=== PATIENT | female | born 1970 | race Caucasian/White ===

== ENCOUNTER 2019-11-28 08:18 | Outpatient (CLI) | payer OTHER, SELFPAY ==
--- NOTE | ~2019-11-28 | XR_ITS ---
XR knee LT 3V, XR knee RT 3V 11/28/2019 08:39 Indication: Bilateral knee pain Procedure: 3 views each knee Comparison: No prior studies for comparison. Findings: No fracture, subluxation or dislocation. There is a right knee effusion. There are mild deg enerative changes medial compartment of the left knee. No foreign bodies. Impression: 1: Mild degenerative changes medial compartment left knee. 2: Small right knee effusion. Reviewed, dictated and finalized at location A. Impression: 1: Mild degenerative changes medial compartment left knee. 2: Small right knee effusion. Impression: 1: Mild degenerative changes medial compartment left knee. 2: Small right knee effusion.
== END 2019-11-28 08:19 | disposition home or self-care (01) ==
PROVIDERS: PCP Physician Assistant
DX: M25.561 Pain in right knee (principal); M25.461 Effusion, right knee
CPT/HCPCS: 73562

== ENCOUNTER 2019-12-20 12:55 | Outpatient (CLI) | payer OTHER, SELFPAY ==
--- NOTE | ~2019-12-20 | MR_ITS ---
EXAMINATION: MR knee RT wo con DATE: 12/20/2019 13:56 INDICATION: Acute right knee pain. TECHNIQUE: Magnetic resonance imaging (MRI) of the right knee was performed without intravenous contr ast. Sequences included axial PD-weighted FS FSE, coronal PD-weighted FSE and PD-weighted FS FSE, sag ittal PD-weighted FSE, and sagittal T2-weighted FS FSE. COMPARISON: Right knee radiographs 11/28/2019 FINDINGS: Medial compartment: Medial meniscus is normal. There is cartilage surface irregularity of tibial condyle. There is shallo w partial-thickness cartilage loss of femoral condyle involving the central articular surface. No sub chondral edema. There are tiny marginal osteophytes. Lateral compartment: There is an upper-surface horizontal tear of body of lateral meniscus. There is a subacute subchondra l insufficiency fracture of lateral femoral condyle with subchondral sclerosis and mild bone marrow e quin. There is deep partial thickness cartilage loss of tibial condyle involving the central and post erior articular surface. There is shallow partial-thickness cartilage loss of femoral condyle involvi ng the posterior articular surface. There are tiny marginal osteophytes. Patellofemoral compartment: There is deep partial thickness cartilage loss of patellar medial and lateral facets with mild subcho ndral edema-like marrow signal intensity. There is cartilage surface irregularity of trochlea. Margin al osteophytes are noted. Ligaments and tendons: The anterior and posterior cruciate ligaments are normal. Medial collateral ligament and lateral danielle ateral ligament complex are normal. There is mild patellar tendinopathy. Fluid: There is a moderate-sized knee joint effusion. IMPRESSION: 1. Subacute subchondral insufficiency fracture of lateral femoral condyle. 2. Moderate chondrosis of lateral and patellofemoral compartments and mild chondrosis of medial comp artment. 3. Tear of lateral meniscus. 4. Moderate-sized knee joint effusion. Reviewed, dictated and finalized at location A. IMPRESSION: 1. Subacute subchondral insufficiency fracture of lateral femoral condyle. 2. Moderate chondrosis of lateral and patellofemoral compartments and mild cho ndrosis of medial compartment. 3. Tear of lateral meniscus. 4. Moderate-sized knee joint effusion.
== END 2019-12-20 12:56 | disposition home or self-care (01) ==
PROVIDERS: PCP Physician Assistant
DX: M25.461 Effusion, right knee (principal); S83.281A Other tear of lateral meniscus, current injury, right knee, initial encounter; X58.XXXA Exposure to other specified factors, initial encounter
CPT/HCPCS: 73721

== ENCOUNTER → 2020-07-31 16:02 | Outpatient (CLI) | payer OTHER, SELFPAY ==
--- NOTE | ~2020-07-31 | MM_ITS ---
EXAMINATION: MM screening [facility] BI w kamryn HISTORY: Screening mammogram TECHNIQUE: Craniocaudal and mediolateral oblique 3-D tomosynthesis images were obtained and synthetic 2-D images were generated. CAD analysis was submitted and interpreted. COMPARISON: No prior mammogram is available for comparison at this institution. BREAST PARENCHYMAL COMPOSITION: The breasts are almost entirely fatty. FINDINGS: There is no evidence of suspicious mass, calcification, or architectural distortion to sugg est malignancy in either breast. IMPRESSION: 1. No mammographic evidence of malignancy. 2. Recommend routine screening mammography in one year. BI-RADS Category 1: Negative Reviewed, dictated and finalized at location A. 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
== END ==
PROVIDERS: Visit Provider Physician Assistant
DX: Z12.31 Encounter for screening mammogram for malignant neoplasm of breast (principal)
CPT/HCPCS: 77063; 77067

== ENCOUNTER 2021-03-26 20:57 | Emergency (ER) | payer OTHER, SELFPAY ==
--- NOTE | ~2021-03-26 | XR_ITS ---
EXAMINATION: XR ankle RT min 3V DATE: 03/26/2021 21:12 INDICATION: Anterior right ankle pain. Fall. TECHNIQUE: 4 views of right ankle were obtained. COMPARISON: None. FINDINGS: Bone alignment is normal. No fracture. Joint spaces are well maintained. There are enthesop hytes at the posterior and plantar aspects of calcaneal tuberosity. There is ankle soft tissue swelli ng. IMPRESSION: 1. No fracture. Reviewed, dictated and finalized at location A. IMPRESSION: 1. No fracture.
[2021-03-26 21:25] VITALS: BP 121/75; PULSE 101; RESP 14; TEMP 37.3; O2SAT 95
[2021-03-26 22:38] VITALS: BP 121/75; PULSE 100; RESP 14; TEMP 37.3; O2SAT 100
--- NOTE | 2021-03-26 23:39 | ED.LOWEXIN ---
HPI - Extremity Injury (Lower) General Chief Complaint: Extremity Injury, Lower Stated Complaint: i think i broke my rt ankle Time Seen by Provider: 03/26/21 23:34 Source: patient and family Mode of arrival: ambulatory Limitations: no limitations History of Present Illness HPI Narrative: 51-year-old here with complaints of right ankle pain. Patient states that she missed couple steps and rolled her ankle. She states that she has excruciating pain. She denies any other injuries. complaint: ankle injury (Right) and fall Type of Injury: eversion Place: home Severity: moderate Relieving factors: nothing Exacerbating factors: movement Context: fall Associated symptoms: swelling Other symptoms: none Related Data Home Medications Medication Instructions Recorded Confirmed levothyroxine 290 mcg PO DAILY 01/31/21 01/31/21 pravastatin 10 mg PO DAILY 01/31/21 01/31/21 Allergies Allergy/AdvReac Type Severity Reaction Status Date / Time No Known Allergies Allergy Mild Verified 03/26/21 22:42 Review of Systems Review of Systems: All systems reviewed & are unremarkable except as noted in HPI and below Constitutional: Constitutional: Reports no additional constitutional complaints Eyes: Eyes: Reports no additional eye complaints ENT: Reports system reviewed and no additional complaints, except as documented Cardiovascular: Cardiovascular: Reports no additional cardiovascular complaints Respiratory: Respiratory: Reports no additional respiratory complaints Gastrointestinal: Gastrointestinal: Reports no additional gastrointestinal complaints Musculoskeletal: Musculoskeletal: Reports as per HPI Integumentary/Breasts: Skin/Breast: Reports system reviewed and no additional complaints, except as docu Neurologic: Reports system reviewed and no additional complaints, except as documented Psychiatric: Psychiatric: Reports no additional psychiatric complaints Endocrine: Endocrine: Reports no additional endocrine complaints [facility] Family History Family History Sibling Family history of bipolar disorder Mother Family history of osteoarthritis Family history of heart disease in male family member before age 55 Grandparent Family history of lung cancer Father Family history of heart disease in male family member before age 55 Other Diabetes mellitus Family history of coronary artery disease Hypertension Social History Social History Smoking status: Never smoker Alcohol intake: current Drinks per week: 3 Spiritual care concerns: No Exam Narrative: GENERAL: Well-appearing, well-nourished, and in no acute distress. HEAD: Normocephalic, atraumatic. EYES: PERRLA and EOMI.. NECK: Supple. CHEST: Clear to auscultation. No respiratory distress. HEART: Regular rate and rhythm. No murmur heard. Normal peripheral pulses. EXTREMITIES: Normal range of motion. No edema. Right ankle with mild soft tissue swelling, no deformity. SKIN: Warm, dry, no rash. NEURO: No focal deficits. Alert and oriented x3. PSYCH: Normal mood and affect. Course Course Emergency Course: Inform patient about her x-ray findings. Advised ice pack take pain medication as needed. Keep leg elevated. Vital Signs Vital signs: Vital Signs Temperature 37.3 C 03/26/21 21:25 Pulse Rate 101 H 03/26/21 21:25 Respiratory Rate 14 03/26/21 21:25 Blood Pressure 121/75 03/26/21 21:25 Pulse Oximetry 95 03/26/21 21:25 Temperature 37.3 C 03/26/21 22:38 Pulse Rate 100 03/26/21 22:38 Respiratory Rate 14 03/26/21 22:38 Blood Pressure 121/75 03/26/21 22:38 Pulse Oximetry 100 03/26/21 22:38 MDM - Extremity Injury (Lower) Imaging Data Radiologist's impression: ITS Impressions Ankle X-Ray 03/26/21 21:13 IMPRESSION: 1. No fracture. Discharge Plan Discharge Clinical Impression:
[2021-03-27 00:03] VITALS: BP 129/88; PULSE 97; RESP 20; O2SAT 97
== END 2021-03-27 00:04 | disposition home or self-care (01) ==
PROVIDERS: Emergency Provider Family Medicine; PCP Physician Assistant
DX: S93.401A Sprain of unspecified ligament of right ankle, initial encounter (principal); S96.911A Strain of unspecified muscle and tendon at ankle and foot level, right foot, initial encounter; X50.9XXA Other and unspecified overexertion or strenuous movements or postures, initial encounter
CPT/HCPCS: 73610; 99283

== ENCOUNTER → 2022-04-22 14:47 | Outpatient (CLI) | payer OTHER, SELFPAY ==
--- NOTE | ~2022-04-22 | CT_ITS ---
EXAMINATION: CT abdomen pelvis w con INDICATION: Left upper quadrant pain TECHNIQUE: Computed tomographic images of the abdomen and pelvis were obtained after the administrati on of 100 cc of Omnipaque 350 intravenous contrast. The dose-length product (DLP) was 930.51 mGy-cm. Automated exposure control and iterative reconstruction technique were employed. COMPARISON: None available FINDINGS: Minimal dependent atelectasis is present in the lung bases. The heart size is normal. Calci fied coronary artery atherosclerosis is noted. The liver, spleen, pancreas, gallbladder, and adrenal glands are normal. The kidneys are unremarkable. No pathologically enlarged abdominal or pelvic lymph nodes are identified. There is no free intraperitoneal gas or evidence of bowel obstruction. There i s mild lumbar spondylosis. IMPRESSION: 1. No CT correlate for the patient's symptoms. Reviewed, dictated and finalized at location A.
== END ==
PROVIDERS: PCP Physician Assistant; Visit Provider Physician Assistant
DX: R10.12 Left upper quadrant pain (principal)
CPT/HCPCS: 74177; Q9967

== ENCOUNTER 2022-08-17 06:10 | Day surgery (SDC) | payer OTHER, SELFPAY ==
[2022-06-03 14:14] VITALS: BMI 31.4
[2022-08-03 14:48] VITALS: BMI 28.3
--- NOTE | 2022-08-14 12:35 | P.PNAN_ITS ---
Anes - Initial Pre Proc Eval Procedure: Operation Date: 08/17/22 08:00 Proposed Procedures p Screening Colonoscopy - Luis Fernando Maki MD Date/Time: 08/14/22 12:35 Surgeon: Luis Fernando Maki MD Pre Op Diagnosis: Neoplasm Screening Patient Data Age: 52 Gender: F Height: 1.63 m Weight: 75 kg Allergies Allergy/AdvReac Type Severity Reaction Status Date / Time No Known Allergies Allergy Mild Verified 08/17/22 06:38 Home Medications Medication Instructions Recorded Confirmed Type levothyroxine 200 mcg capsule 290 mcg PO DAILY 01/31/21 08/17/22 History pravastatin 10 mg tablet 10 mg PO DAILY 01/31/21 08/17/22 History Patient hx anesthesia problems: none Family hx anesthesia problems: none Results Review: All pre-operative results and documents have been reviewed as part of the pre- operative evaluation. [facility] Past Medical History Medical History (Updated 08/14/22 @ 12:35 by Bill Cabrera DO) Hyperlipidemia Hypothyroidism Family History Family History Sibling Family history of bipolar disorder Mother Family history of osteoarthritis Family history of heart disease in male family member before age 55 Grandparent Family history of lung cancer Father Family history of heart disease in male family member before age 55 Other Diabetes mellitus Family history of coronary artery disease Hypertension Social History Social History Smoking status: Never smoker Alcohol intake: current Drinks per week: 3 Substance use: never Substance use type: does not use Living arrangements: with family Spiritual care concerns: No Anes - Eval Final PreProcedure Day of Procedure 08/14/22 12:35 Patient weight: overweight Heart: regular rate and rhythm Lungs: clear to auscultation Airway: Mallampati scale class II Neurological: alert and oriented Last oral intake: >/= 8 hours ASA classification: II Emergent: no Anesthetic plan: proceed Anesthesia type and monitoring: general GIVS and standard monitoring Results Review: All pre-operative results and documents have been reviewed as part of the pre- operative evaluation. Informed Consent: The patient's anesthetic plan and its attendant risks and benefits were discussed with the patient/family/POA. Questions were solicited and answers provided to the satisfaction of the patient/family/POA.
[2022-08-17 06:35] VITALS: BP 121/87; PULSE 92; RESP 14; TEMP 37; O2SAT 100
[2022-08-17] MEDS: LACTATED RINGERS 1,000 ML 150 ML IV CONT (06:45)
--- NOTE | 2022-08-17 07:56 | PM.HPGS ---
History of Present Illness History of Present Illness Consent: Risks, benefits, and alternatives have been discussed and questions answered. Patient agrees to proceed with procedure. Chief complaint: Neoplasm Screening Narrative: Keysha Scanlon is a 52 year old female here for first screening colonoscopy Review of Systems Constitutional: Constitutional: Denies headache(s) and Denies weakness Eyes: Eyes: Denies blurry vision ENT: Reports Normal hearing present, Denies headache(s) and Denies neck pain Cardiovascular: Cardiovascular: Denies chest pain and Denies dyspnea Respiratory: Respiratory: Denies dyspnea Gastrointestinal: Gastrointestinal: Reports no additional gastrointestinal complaints Genitourinary: Genitourinary: Denies dysuria Musculoskeletal: Musculoskeletal: Denies neck pain Integumentary/Breasts: Skin/Breast: Denies dry skin Neurologic: Reports Normal hearing present, Denies headache(s) and Denies weakness Psychiatric: Psychiatric: Denies anxiety Endocrine: Endocrine: Denies change in body appearance Hematologic/Lymphatic: Hematologic/Lymphatic: Denies easy bleeding Allergic/Immunologic: Allergic/Immunologic: Denies urticaria PMFSH Past Medical History Medical History (Updated 08/17/22 @ 07:56 by Luis Fernando Maki MD) Colon cancer screening Hyperlipidemia Hypothyroidism Family History Family History Sibling Family history of bipolar disorder Mother Family history of osteoarthritis Family history of heart disease in male family member before age 55 Grandparent Family history of lung cancer Father Family history of heart disease in male family member before age 55 Other Diabetes mellitus Family history of coronary artery disease Hypertension Social History Social History Smoking status: Never smoker Alcohol intake: current Drinks per week: 3 Substance use: never Substance use type: does not use Living arrangements: with family Spiritual care concerns: No Meds Home Medications and Allergies Home Medications Medication Instructions Recorded Confirmed Type levothyroxine 200 mcg capsule 290 mcg PO DAILY 01/31/21 08/17/22 History pravastatin 10 mg tablet 10 mg PO DAILY 01/31/21 08/17/22 History Allergies Allergy/AdvReac Type Severity Reaction Status Date / Time No Known Allergies Allergy Mild Verified 08/17/22 06:38 Vital Signs Vital Signs - 24 hr 08/17/22 06:35 Temperature 98.6 F Pulse Rate 92 Respiratory Rate 14 Blood Pressure 121/87 Pulse Oximetry 100 Oxygen Delivery Room Air Exam Const: General: comfortable and no acute distress HENMT: Face/Nose/Sinus: Normal nares present Eyes: General: appearance normal, both eyes and all related structures Neck: Neck: no JVD Resp: Auscultation: clear to auscultation bilaterally Cardio: Rate: regular rate Rhythm: regular rhythm GI: Inspection: non-distended GI Palp: Yes Soft to palpation Skin: General skin exam: normal color Neuro: General: gait normal Speech: normal speech Extrem: General: normal to inspection Psych: Mental Status: mental status grossly normal Assessment and Plan Assessment and plan (1) Colon cancer screening: Code(s): Z12.11 - Encounter for screening for malignant neoplasm of colon Status: Acute Assessment and Plan: colonoscopy
[2022-08-17 08:17] VITALS: BP 122/85; PULSE 87; RESP 18; O2SAT 100
[2022-08-17 08:27] VITALS: BP 111/83; PULSE 77; RESP 16; O2SAT 100
[2022-08-17 08:37] VITALS: BP 118/88; PULSE 68; RESP 18; O2SAT 100
--- NOTE | 2022-08-17 12:51 | WPDANESPN ---
Anes - Prog Note Post-Op Date/Time: 08/17/22 12:51 Cardiovascular status: normal Respiratory status: normal Airway patency: baseline Mental status: baseline Post-Op hydration status: normal Vital Signs: Last Vital Signs Temp 37.0 C 08/17/22 06:35 Pulse 68 08/17/22 08:37 Resp 18 08/17/22 08:37 BP 118/88 08/17/22 08:37 Pulse Ox 100 08/17/22 08:37 O2 Del Method Room Air 08/17/22 08:37 Pain Score (VAS): 0 I/O: Intake & Output 08/16/22 08/17/22 08/17/22 23:59 07:59 15:59 Intake Total 780 Balance 780 Post-procedural complaints: none Patient Feedback: Patient satisfied with anesthetic care. Other Findings: Patient vital signs back to baseline. Patient denies nausea and vomiting. Patient's pain under control. Patient OK for discharge.
== END 2022-08-17 09:00 | disposition home or self-care (01) ==
PROVIDERS: PCP Physician Assistant; Visit Provider Internal Medicine Gastroenterology
PROC: 0DJD8ZZ Inspection of Lower Intestinal Tract, Via Natural or Artificial Opening Endoscopic (ICD-10-PCS; CPT 45378; principal; 2022-08-17 08:00)
DX: Z12.11 Encounter for screening for malignant neoplasm of colon (principal)
CPT/HCPCS: 45385

== ENCOUNTER 2022-08-17 07:00 | Outpatient (NON) | payer OTHER, SELFPAY | END 2022-08-17 07:01 | disposition home or self-care (01) | LOC: ANHLAB 08-18 12:44 | PROVIDERS: PCP Physician Assistant; Visit Provider Internal Medicine Gastroenterology | DX: Z12.11 Encounter for screening for malignant neoplasm of colon (principal) | CPT/HCPCS: 88305 ==

== ENCOUNTER → 2022-09-21 12:25 | Outpatient (CLI) | payer OTHER, SELFPAY ==
--- NOTE | ~2022-09-21 | MM_ITS ---
EXAMINATION: MM screening beth BI w kamryn HISTORY: Screening mammogram TECHNIQUE: Craniocaudal and mediolateral oblique 3-D tomosynthesis images were obtained and synthetic 2-D images were generated. CAD analysis was submitted and interpreted. COMPARISON: 07/31/2020 bilateral screening mammogram BREAST PARENCHYMAL COMPOSITION: The breasts are almost entirely fatty. FINDINGS: There is no evidence of suspicious mass, calcification, or architectural distortion to sugg est malignancy in either breast. There has been no suspicious interval change. IMPRESSION: 1. No mammographic evidence of malignancy. 2. Recommend routine screening mammography in one year. BI-RADS Category 1: Negative Reviewed, dictated and finalized at location A. 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
== END ==
PROVIDERS: PCP Physician Assistant; Visit Provider Physician Assistant
DX: Z12.31 Encounter for screening mammogram for malignant neoplasm of breast (principal)
CPT/HCPCS: 77063; 77067

== ENCOUNTER → 2022-12-03 15:27 | Outpatient (CLI) | payer OTHER, SELFPAY ==
--- NOTE | ~2022-12-03 | XR_ITS ---
. XR knee RT min 4V 12/03/2022 15:49 Indication: Right knee pain Procedure: 4 views right knee Comparison: 11/28/2019 Findings: No fracture, subluxation or dislocation. There is mild tricompartment osteoarthritis. No si gnificant joint effusion. No foreign bodies. Impression: 1: Mild osteoarthritis of the right knee. Reviewed, dictated and finalized at location L. Impression: 1: Mild osteoarthritis of the right knee.
== END ==
PROVIDERS: PCP Physician Assistant; Visit Provider Physician Assistant
DX: M17.11 Unilateral primary osteoarthritis, right knee (principal); M25.561 Pain in right knee
CPT/HCPCS: 73564

== ENCOUNTER 2023-10-13 12:13 | Outpatient (CLI) | payer OTHER, SELFPAY ==
--- NOTE | ~2023-10-13 | MM_ITS ---
EXAMINATION: MM screening [facility] BI w kamryn HISTORY: Screening TECHNIQUE: Craniocaudal and mediolateral oblique 3-D tomosynthesis images were obtained and synthetic 2-D images were generated. CAD analysis was submitted and interpreted. COMPARISON: Comparison to multiple prior studies sequentially, with oldest reviewed study dated 12/2020. BREAST PARENCHYMAL COMPOSITION: There are scattered areas of fibroglandular density. FINDINGS: There is no evidence of suspicious mass, calcification, or architectural distortion to sugg est malignancy in either breast. There has been no suspicious interval change. IMPRESSION: 1. No mammographic evidence of malignancy. 2. Recommend routine screening mammography in one year. BI-RADS Category 1: Negative Reviewed, dictated and finalized at location A.
== END 2023-10-13 12:14 ==
LOC: MICIMG 12:14
PROVIDERS: PCP Physician Assistant; Visit Provider Physician Assistant
DX: Z12.31 Encounter for screening mammogram for malignant neoplasm of breast (principal)
CPT/HCPCS: 77063; 77067

== ENCOUNTER 2024-10-16 12:24 | Outpatient (CLI) | payer OTHER, SELFPAY ==
--- NOTE | ~2024-10-16 | MM_ITS ---
EXAMINATION: MM screening [facility] BI w kamryn HISTORY: Screening TECHNIQUE: Craniocaudal and mediolateral oblique 3-D tomosynthesis images were obtained and synthetic 2-D images were generated. CAD analysis was submitted and interpreted. COMPARISON: 10/13/2023 and dating back to 07/31/2020 BREAST PARENCHYMAL COMPOSITION: There are scattered areas of fibroglandular density. FINDINGS: Punctate calcifications are detected bilaterally, stable and benign in appearance. Stable parenchymal pattern without suspicious microcalcifications, architectural distortion, discrete masses or significant asymmetry. IMPRESSION: 1. No mammographic evidence of malignancy. 2. Recommend routine screening mammography in one year. BI-RADS Category 2: Benign finding(s). Reviewed, dictated and finalized at location A.
--- OUTSIDE RECORDS SUMMARY | 2024-10-16 14:06 | XMS_ITS | Data Portability ---
Author Organization [facility] Address [address] [place] [address] Assessment Encounter Date Assessment Date Assessment LastModified by Organization Details LastModified Time 09/01/2018 09/01/2018 Fax latest test results to Brian wong Not available 09/01/2018 16:55:44 12/17/2020 12/17/2020 Blood work record request - 2020 from PCP [email or web address] Not available 12/17/2020 12:21:24 12/18/2021 12/18/2021 Send in a new thyroid script when labs are back. [email or web address] Not available 12/18/2021 11:01:06 09/28/2022 09/28/2022 May lower thyroid dose. [email or web address] Not available 09/28/2022 12:55:19 10/21/2023 10/21/2023 Check thyroid blood work in 4 weeks. May lower dose once these labs are back. [email or web address] Not available 10/21/2023 10:47:47 Plan of Treatment Reminders Order Date Submit Date Provider Last Modified By Organization Details Last Modified Time Details Appointments ESTABLI SHED PATIENT 2024 10:45A Rickey Foote Not available Not available Not available Lab TSH, serum or plasma 2023 024 [email or web address], [address], [place], [address], 10/31/2023 22:28:09 T4, free, serum 2023 024 [facility], [address], [place], [address], 10/31/2023 22:28:09 T3, free, serum or plasma 2023 024 [email or web address] [facility], [facility] [address], [place], [address], 10/31/2023 22:28:09 TSH, serum or plasma 2022 023 [email or web address] 2 Not available 10/07/2022 09:24:47 T4, free, serum 2022 023 [email or web address] 2 Not available 10/07/2022 09:24:47 T3, free, serum or plasma 2022 023 [email or web address] 2 Not available 10/07/2022 09:24:48 CMP, serum or plasma 2022 023 2 Not available 10/07/2022 09:24:47 CBC w/ auto diff 2022 023 [email or web address] 2 Not available 10/07/2022 09:24:47 lipid panel, serum 2021 022 amalic Not available 12/26/2021 07:34:38 HbA1c (hemogl obin A1c), blood 2021 022 amalic Not available 12/26/2021 07:34:38 CBC w/ auto diff 2021 022 amalic Not available 12/26/2021 07:34:38 CMP, serum or plasma 2021 022 amalic Not available 12/26/2021 07:34:38 TSH, serum or plasma 2021 022 amalic Not available 12/26/2021 07:34:37 T3, free, serum or plasma 2021 022 amalic Not available 12/26/2021 07:34:37 T4, free, serum 2021 022 amalic Not available 12/26/2021 07:34:38 T3, reverse , serum 2021 022 amalic Not available 12/26/2021 07:34:38 Referral None recorde d. Procedures None recorde d. Surgeries None recorde d. Imaging DEXA 2023 024 amalic Not available 11/07/2023 21:49:36 Medication Orders compoun ded medicat ion 2023 024 WHIT [facility], [address] [place] [address], [id number], 11/25/2023 14:54:51 compoun ded medicat ion 2020 021 [email or web address] [facility], [address] [place] [address], [id number], 12/31/2021 12:14:07 Patient TargetsNo targets recorded. Patient Instructions Encounter Date Encounter Id Patient Instructions Last Modified By Organization Details Last Modified Time 09/01/2018 [id number] Referral Brian Campbell - - bi specialist [email or web address] Not available 09/01/2018 16:51:36 12/17/2020 [id number] Lachesis 200C 1M 2 doses then 12c 3 pellets twice daily Ashwagandha 1000mg at night before bed to help with sleep. Magnesium citrate - 300mg before bed. 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 To help with stress and energy level - Rhodiola 2 in the morning [email or web address] Not available 10/21/2023 10:52:37 Reason for Referral None Reported. Results Created Date Observation Date Name Description Value Unit Range Abnormal Flag Note LastModifiedBy Organization Detail LastModifiedTime 12/19/192022 CBC W/DIF F WBC 6.9 10'3/ uL 3.6-10 .2 Not Available [facility] (Lab) [address], [place], [address], 12/29/2021 02:03:14 12/19/19 22 12/18/2021 CBC W/DIF F RBC 4.90 10'6/ uL (based on docume nted legal sex) 4.10-5 .30 Not Available [facility] (Lab) [address], [place], [address], 12/29/2021 02:03:14 12/19/19 22 12/18/2021 CBC W/DIF F HGB 14.2 g/dL (based on docume nted legal sex) 11.9-1 5.8 Not Available [facility] (Lab) [address], [place], [address], 12/29/2021 02:03:14 12/19/19 22 12/18/2021 CBC W/DIF F HCT 46.8 % (based on docume nted legal sex) 37.4-4 8.3 Not Available [facility] (Lab) [address], [place], [address], 12/29/2021 02:03:14 12/19/19 22 12/18/2021 CBC W/DIF F MCV 95.0 fL 82.0-9 9.0 Not Available [facility] (Lab) [address], [place], [address], 12/29/2021 02:03:14 12/19/19 22 12/18/2021 CBC W/DIF F MCH 29.0 pg 27.0-3 3.0 Not Available [facility] (Lab) [address] [facility], [place], [address], 12/29/2021 02:03:14 12/19/19 22 12/18/2021 CBC W/DIF F MCHC 30.0 g/dL 32.0-3 6.0 low Not Available [facility] (Lab) [address] [facility], [place], [address], 12/29/2021 02:03:14 12/19/19 22 12/18/2021 CBC W/DIF F RDW 15.0 % 11.0-1 5.0 Not Available [facility] (Lab) [address] [facility], [place], [address], 12/29/2021 02:03:14 12/19/19 22 12/18/2021 CBC W/DIF F plt 303 10'3/ uL 150-45 0 Not Available [facility] (Lab) [address] [facility], [place], [address], 12/29/2021 02:03:14 12/19/19 22 12/18/2021 CBC W/DIF F MPV 9.5 fL 9.8-12 .7 low Not Available [facility] (Lab) [address] [facility], [place], [address], 12/29/2021 02:03:14 12/19/19 22 12/18/2021 CBC W/DIF F NRBC's 0.00 % 0 Not Available [facility] (Lab) [address] [facility], [place], [address], 12/29/2021 02:03:14 12/19/19 22 12/18/2021 CBC W/DIF F absolute NRBCs 0.0 10'3/ uL 0 Not Available [facility] (Lab) [address] [facility], [place], [address], 12/29/2021 02:03:14 12/19/19 22 12/18/2021 CBC W/DIF F neutrophils 57.0 % 37.0-7 2.0 Not Available [facility] (Lab) [address] [facility], [place], [address], 12/29/2021 02:03:14 12/19/19 22 12/18/2021 CBC W/DIF F lymphocytes 35.0 % 16.0-4 8.0 Not Available [facility] (Lab) [address] [facility], [place], [address], 12/29/2021 02:03:14 12/19/19 22 12/18/2021 CBC W/DIF F monocytes 7.0 % 4.0-14 .0 Not Available [facility] (Lab) [address] [facility], [place], [address], 12/29/2021 02:03:14 12/19/19 22 12/18/2021 CBC W/DIF F eosinophils 1.0 % 0.0-9. 0 Not Available [facility] (Lab) [address] [place], [address], 12/29/2021 02:03:14 12/19/19 22 12/18/2021 CBC W/DIF F basophils 0.0 % 0.0-2. 0 Not Available [facility] (Lab) [address] [facility], [place], [address], 12/29/2021 02:03:14 12/19/19 22 12/18/2021 CBC W/DIF F immature granulocytes 0.0 % no define d refere nce range Not Available [facility] (Lab) [address] [facility], [place], [address], 12/29/2021 02:03:14 12/19/19 22 12/18/2021 CBC W/DIF F absolute neutrophils 3.8 10'3/ uL 1.1-6. 0 Not Available [facility] (Lab) [address] [facility], [place], [address], 12/29/2021 02:03:14 12/19/19 22 12/18/2021 CBC W/DIF F absolute lymphocytes 2.4 10'3/ uL 0.7-3. 4 Not Available [facility] (Lab) [address] [place], [address], 12/29/2021 02:03:14 12/19/19 22 12/18/2021 CBC W/DIF F absolute monocytes 0.5 10'3/ uL 0.3-1. 0 Not Available [facility] (Lab) [address] [facility], [place], [address], 12/29/2021 02:03:14 12/19/19 22 12/18/2021 CBC W/DIF F absolute eosinophils 0.1 10'3/ uL 0.0-0. 6 Not Available [facility] (Lab) [address] [facility], [place], [address], 12/29/2021 02:03:14 12/19/19 22 12/18/2021 CBC W/DIF F absolute basophils 0.0 10'3/ uL 0.0-0. 1 Not Available [facility] (Lab) [address] [facility], [place], [address], 12/29/2021 02:03:14 12/19/19 22 12/18/2021 CBC W/DIF F absolute immature granulocytes 0.00 10'3/ uL 0.00-0 .10 DRAWN BY STAFF 2021 1:32 AM: P indic ates parti al resul ts on a panel have been relea sed. Addit ional resul ts will follo w. 2021 1:32 AM: This resul t has been final verif ied. No addit ional or diamond ed resul ts are expec judith. Not Available [facility] (Lab) [address] [facility], [place], [address], 12/29/2021 02:03:14 12/19/19 22 12/18/2021 LIPID PANEL ,AMA (LDL- CALC) total cholesterol 249 mg/dL 0-199 high Not Available [facility] (Lab) [address] [facility], [place], [address], 12/29/2021 02:03:15 12/19/19 22 12/18/2021 LIPID PANEL ,AMA (LDL- CALC) triglyceride s 241 mg/dL 0.00-1 50.00 high NCEP Refer ence Value s for Trigl yceri dulce: Jannette l: <150 mg/dL Borde rline High: 150 - 199 mg/dL High: 200 - 499 mg/dL Very High: >/= 500 mg/dL Not Available [facility] (Lab) [address] [facility], [place], [address], 12/29/2021 02:03:15 12/19/19 22 12/18/2021 LIPID PANEL ,AMA (LDL- CALC) HDL cholesterol 77 mg/dL >40 Not Available [facility] (Lab) [address] [facility], [place], [address], 12/29/2021 02:03:15 12/19/19 22 12/18/2021 LIPID PANEL ,AMA (LDL- CALC) LDL cholesterol 124 mg/dL 0-99 high Cutof f value s recom mariana d by the Natio nal Trixie stero l Educa tion Progr am: RADHA ABLE: Trixie stero l <200 mg/dL LDL <100 mg/dL BORDE RLINE : Trixie stero l 200-2 39 mg/dL LDL 101-1 59 mg/dL HIGHE R RISK: Trixie stero l >240 mg/dL LDL >160 mg/dL , HDL <40 mg/dL Not Available [facility] (Lab) [address] [facility], [place], [address], 12/29/2021 02:03:15 12/19/19 22 12/18/2021 LIPID PANEL ,AMA (LDL- CALC) non-HDL cholesterol 172 mg/dL no refere nce range A reaso nable goal for non-H DL trixie stero l is one that is 30 mg/dL highe r than the LDL trixie stero l goal. Not Available [facility] (Lab) [address] [facility], [place], [address], 12/29/2021 02:03:15 12/19/19 22 12/18/2021 LIPID PANEL ,AMA (LDL- CALC) chol/HDL ratio 3.2 . 0.0-5. 0 DRAWN BY STAFF Not Available [facility] (Lab) [address] [facility], [place], [address], 12/29/2021 02:03:15 12/19/19 22 12/18/2021 CMP(C OMPRE HENSI VE METAB OLIC PANEL ) sodium 135 mmol/ L 133-14 6 Not Available [facility] (Lab) [address] [facility], [place], [address], 12/29/2021 02:03:15 12/19/19 22 12/18/2021 CMP(C OMPRE HENSI VE METAB OLIC PANEL ) potassium 4.8 mmol/ L 3.5-5. 1 Not Available [facility] (Lab) [address] [facility], [place], [address], 12/29/2021 02:03:15 12/19/19 22 12/18/2021 CMP(C OMPRE HENSI VE METAB OLIC PANEL ) chloride 102 mmol/ L 98-107 Not Available [facility] (Lab) [address] [facility], [place], [address], 12/29/2021 02:03:15 12/19/19 22 12/18/2021 CMP(C OMPRE HENSI VE METAB OLIC PANEL ) carbon dioxide 27 mmol/ L 21-31 Not Available [facility] (Lab) [address] [facility], [place], [address], 12/29/2021 02:03:15 12/19/19 22 12/18/2021 CMP(C OMPRE HENSI VE METAB OLIC PANEL ) anion gap 6 mmol/ L 4-13 Not Available [facility] (Lab) [address] [place], [address], 12/29/2021 02:03:15 12/19/19 22 12/18/2021 CMP(C OMPRE HENSI VE METAB OLIC PANEL ) blood urea nitrogen 14 mg/dL 7-25 Not Available [facility] (Lab) [address] [place], [address], 12/29/2021 02:03:15 12/19/19 22 12/18/2021 CMP(C OMPRE HENSI VE METAB OLIC PANEL ) creatinine 0.62 mg/dL 0.60-1 .30 Not Available [facility] (Lab) [address], [place], [address], 12/29/2021 02:03:15 12/19/19 22 12/18/2021 CMP(C OMPRE HENSI VE METAB OLIC PANEL ) egfrcr (CKD-epi 2020) >90 mL/mi n/1.7 3_m2 >=60 Not Available [facility] (Lab) [address], [place], [address], 12/29/2021 02:03:15 12/19/19 22 12/18/2021 CMP(C OMPRE HENSI VE METAB OLIC PANEL ) calcium 9.6 mg/dL 8.3-10 .5 Not Available [facility] (Lab) [address], [place], [address], 12/29/2021 02:03:15 12/19/19 22 12/18/2021 CMP(C OMPRE HENSI VE METAB OLIC PANEL ) glucose 97 mg/dL 70-100 Not Available [facility] (Lab) [address], [place], [address], 12/29/2021 02:03:15 12/19/19 22 12/18/2021 CMP(C OMPRE HENSI VE METAB OLIC PANEL ) protein, total 7.2 g/dL 6.4-8. 3 Not Available [facility] (Lab) [address], [place], [address], 12/29/2021 02:03:15 12/19/19 22 12/18/2021 CMP(C OMPRE HENSI VE METAB OLIC PANEL ) albumin 4.2 g/dL 3.5-5. 0 Not Available [facility] (Lab) [address], [place], [address], 12/29/2021 02:03:15 12/19/19 22 12/18/2021 CMP(C OMPRE HENSI VE METAB OLIC PANEL ) ALT 17 units /L 9-43 Not Available [facility] (Lab) [address] [facility], [place], [address], 12/29/2021 02:03:15 12/19/19 22 12/18/2021 CMP(C OMPRE HENSI VE METAB OLIC PANEL ) alkaline phosphatase 64 units /L 34-104 Not Available [facility] (Lab) [address] [facility], [place], [address], 12/29/2021 02:03:15 12/19/19 22 12/18/2021 CMP(C OMPRE HENSI VE METAB OLIC PANEL ) AST 17 units /L 13-39 Not Available [facility] (Lab) [address] [facility], [place], [address], 12/29/2021 02:03:15 12/19/19 22 12/18/2021 CMP(C OMPRE HENSI VE METAB OLIC PANEL ) bilirubin, total 0.5 mg/dL 0.2-1. 2 DRAWN BY STAFF Not Available [facility] (Lab) [address] [place], [address], 12/29/2021 02:03:15 12/19/19 22 12/18/2021 FREE T3 T3, free 3.3 pg/mL 2.5-3. 9 DRAWN BY STAFF Not Available [facility] (Lab) [address] [place], [address], 12/29/2021 02:03:16 12/19/19 22 12/18/2021 T4 FREE T4, free 1.11 NG/dL 0.60-1 .40 DRAWN BY STAFF Not Available [facility] (Lab) [address] [place], [address], 12/29/2021 02:03:16 12/19/19 22 12/18/2021 TSH TSH <0.01 uIU/m L 0.30-5 .33 low DRAWN BY STAFF Not Available [facility] (Lab) [address], [place], [address], 12/29/2021 02:03:17 12/19/19 22 12/18/2021 HEMOG LOBIN A1C hemoglobin A1C 5.3 % 0-5.6 DRAWN BY STAFF The [facility]i can [employer] [facility] [employer] i[employer] n recom mends that a prima ry goal of thera py shoul d be a HBA1C of < 7% and that physi cians shoul d reeva luate the treat ment regim en in patie nts with HBA1C value s consi stent ly > 8%. <5.7% Jannette l 5.7 - 6.4% Incre ased risk for diabe marie >=6.5 % Diagn ostic of diabe marie <7.0% Goal of thera py >8.0% Actio n sugge sted Not Available [facility] (Lab) [address], [place], [address], 12/29/2021 02:03:17 12/19/19 22 12/18/2021 T3 REVER SE, LC/MS /MS T3, reverse 16 NG/dL 8-25 This test was devel oped and its reji tical perfo rmanc e crystal cteri stics have been deter mined by [facility] [place] . It has not been clear ed or appro parvin by FDA. This assay has been valid ated pursu ant to the CLIA regul ation s and is used for clini alan purpo ses. DRAWN BY STAFF Perfo rming Organ izati on Infor matgonzalo n: Site ID: [id number] Name: [facility]on [facility] [place] , Addre ss: [id number] [place] [phone] Direc tor: Donna corrigan MD,Ph D,CHRISTIE Not Available [facility] (Lab) [address], [place], [address], 12/29/2021 02:03:17 09/29/19 23 09/28/2022 CBC W/DIF F WBC 10.7 10'3/ uL 3.6-10 .2 high Not Available [facility] (Lab) [address], [place], [address], 09/29/2022 04:18:35 09/29/19 23 09/28/2022 CBC W/DIF F RBC 5.00 10'6/ uL (based on docume nted legal sex) 4.10-5 .30 Not Available [facility] (Lab) [address] [facility], [place], [address], 09/29/2022 04:18:35 09/29/19 23 09/28/2022 CBC W/DIF F HGB 14.2 g/dL (based on docume nted legal sex) 11.9-1 5.8 Not Available [facility] (Lab) [address] [facility], [place], [address], 09/29/2022 04:18:35 09/29/19 23 09/28/2022 CBC W/DIF F HCT 45.8 % (based on docume nted legal sex) 37.4-4 8.3 Not Available [facility] (Lab) [address], [place], [address], 09/29/2022 04:18:35 09/29/19 23 09/28/2022 CBC W/DIF F MCV 91.6 fL 82.0-9 9.0 Not Available [facility] (Lab) [address] [facility], [place], [address], 09/29/2022 04:18:35 09/29/19 23 09/28/2022 CBC W/DIF F MCH 28.4 pg 27.0-3 3.0 Not Available [facility] (Lab) [address] [facility], [place], [address], 09/29/2022 04:18:35 09/29/19 23 09/28/2022 CBC W/DIF F MCHC 31.0 g/dL 32.0-3 6.0 low Not Available [facility] (Lab) [address] [facility], [place], [address], 09/29/2022 04:18:35 09/29/19 23 09/28/2022 CBC W/DIF F RDW 14.4 % 11.0-1 5.0 Not Available [facility] (Lab) [address] [facility], [place], [address], 09/29/2022 04:18:35 09/29/19 23 09/28/2022 CBC W/DIF F plt 415 10'3/ uL 150-45 0 Not Available [facility] (Lab) [address] [facility], [place], [address], 09/29/2022 04:18:35 09/29/19 23 09/28/2022 CBC W/DIF F MPV 9.3 fL 9.8-12 .7 low Not Available [facility] (Lab) [address] [facility], [place], [address], 09/29/2022 04:18:35 09/29/19 23 09/28/2022 CBC W/DIF F NRBC's 0.0 % 0 Not Available [facility] (Lab) [address] [facility], [place], [address], 09/29/2022 04:18:35 09/29/19 23 09/28/2022 CBC W/DIF F absolute NRBCs 0.0 10'3/ uL 0 Not Available [facility] (Lab) [address] [facility], [place], [address], 09/29/2022 04:18:35 09/29/19 23 09/28/2022 CBC W/DIF F neutrophils 69.1 % 37.0-7 2.0 Not Available [facility] (Lab) [address] [place], [address], 09/29/2022 04:18:35 09/29/19 23 09/28/2022 CBC W/DIF F lymphocytes 23.5 % 16.0-4 8.0 Not Available [facility] (Lab) [address] [facility], [place], [address], 09/29/2022 04:18:35 09/29/19 23 09/28/2022 CBC W/DIF F monocytes 6.1 % 4.0-14 .0 Not Available [facility] (Lab) [address] [facility], [place], [address], 09/29/2022 04:18:35 09/29/19 23 09/28/2022 CBC W/DIF F eosinophils 0.4 % 0.0-9. 0 Not Available [facility] (Lab) [address] [facility], [place], [address], 09/29/2022 04:18:35 09/29/19 23 09/28/2022 CBC W/DIF F basophils 0.4 % 0.0-2. 0 Not Available [facility] (Lab) [address] [facility], [place], [address], 09/29/2022 04:18:35 09/29/19 23 09/28/2022 CBC W/DIF F immature granulocytes 0.5 % no define d refere nce range Not Available [facility] (Lab) [address] [facility], [place], [address], 09/29/2022 04:18:35 09/29/19 23 09/28/2022 CBC W/DIF F absolute neutrophils 7.4 10'3/ uL 1.1-6. 0 high Not Available [facility] (Lab) [address] [facility], [place], [address], 09/29/2022 04:18:35 09/29/19 23 09/28/2022 CBC W/DIF F absolute lymphocytes 2.5 10'3/ uL 0.7-3. 4 Not Available [facility] (Lab) [address] [facility], [place], [address], 09/29/2022 04:18:35 09/29/19 23 09/28/2022 CBC W/DIF F absolute monocytes 0.7 10'3/ uL 0.3-1. 0 Not Available [facility] (Lab) [address] [facility], [place], [address], 09/29/2022 04:18:35 09/29/19 23 09/28/2022 CBC W/DIF F absolute eosinophils 0.0 10'3/ uL 0.0-0. 6 Not Available [facility] (Lab) [address] [facility], [place], [address], 09/29/2022 04:18:35 09/29/19 23 09/28/2022 CBC W/DIF F absolute basophils 0.0 10'3/ uL 0.0-0. 1 Not Available [facility] (Lab) [address] [facility], [place], [address], 09/29/2022 04:18:35 09/29/19 23 09/28/2022 CBC W/DIF F absolute immature granulocytes 0.1 10'3/ uL 0.00-0 .10 023 1:59 AM: P indic ates parti al resul ts on a panel have been relea sed. Addit ional resul ts will follo w. 023 1:59 AM: This resul t has been final verif ied. No addit ional or diamond ed resul ts are expec judith. Not Available [facility] (Lab) [address] [facility], [place], [address], 09/29/2022 04:18:35 09/29/19 23 09/28/2022 CMP(C OMPRE HENSI VE METAB OLIC PANEL ) sodium 137 mmol/ L 133-14 6 Not Available [facility] (Lab) [address] [facility], [place], [address], 09/29/2022 04:18:35 09/29/19 23 09/28/2022 CMP(C OMPRE HENSI VE METAB OLIC PANEL ) potassium 4.3 mmol/ L 3.5-5. 1 Not Available [facility] (Lab) [address] [facility], [place], [address], 09/29/2022 04:18:35 09/29/19 23 09/28/2022 CMP(C OMPRE HENSI VE METAB OLIC PANEL ) chloride 100 mmol/ L 98-107 Not Available [facility] (Lab) [address] [facility], [place], [address], 09/29/2022 04:18:35 09/29/19 23 09/28/2022 CMP(C OMPRE HENSI VE METAB OLIC PANEL ) carbon dioxide 25 mmol/ L 21-31 Not Available [facility] (Lab) [address] [facility], [place], [address], 09/29/2022 04:18:35 09/29/19 23 09/28/2022 CMP(C OMPRE HENSI VE METAB OLIC PANEL ) anion gap 12 mmol/ L 4-13 Not Available [facility] (Lab) [address] [facility], [place], [address], 09/29/2022 04:18:35 09/29/19 23 09/28/2022 CMP(C OMPRE HENSI VE METAB OLIC PANEL ) blood urea nitrogen 12 mg/dL 7-25 Not Available [facility] (Lab) [address] [place], [address], 09/29/2022 04:18:35 09/29/19 23 09/28/2022 CMP(C OMPRE HENSI VE METAB OLIC PANEL ) creatinine 0.58 mg/dL 0.60-1 .30 low Not Available [facility] (Lab) [address] [facility], [place], [address], 09/29/2022 04:18:35 09/29/19 23 09/28/2022 CMP(C OMPRE HENSI VE METAB OLIC PANEL ) egfrcr (CKD-epi 2020) >90 mL/mi n/1.7 3_m2 >=60 Not Available [facility] (Lab) [address] [facility], [place], [address], 09/29/2022 04:18:35 09/29/19 23 09/28/2022 CMP(C OMPRE HENSI VE METAB OLIC PANEL ) calcium 9.5 mg/dL 8.3-10 .5 Not Available [facility] (Lab) [address], [place], [address], 09/29/2022 04:18:35 09/29/19 23 09/28/2022 CMP(C OMPRE HENSI VE METAB OLIC PANEL ) glucose 94 mg/dL 70-100 Not Available [facility] (Lab) [address], [place], [address], 09/29/2022 04:18:35 09/29/19 23 09/28/2022 CMP(C OMPRE HENSI VE METAB OLIC PANEL ) protein, total 7.3 g/dL 6.4-8. 3 Not Available [facility] (Lab) [address], [place], [address], 09/29/2022 04:18:35 09/29/19 23 09/28/2022 CMP(C OMPRE HENSI VE METAB OLIC PANEL ) albumin 4.4 g/dL 3.5-5. 0 Not Available [facility] (Lab) [address] [place], [address], 09/29/2022 04:18:35 09/29/19 23 09/28/2022 CMP(C OMPRE HENSI VE METAB OLIC PANEL ) ALT 14 units /L 9-43 Not Available [facility] (Lab) [address], [place], [address], 09/29/2022 04:18:35 09/29/19 23 09/28/2022 CMP(C OMPRE HENSI VE METAB OLIC PANEL ) alkaline phosphatase 51 units /L 34-104 Not Available [facility] (Lab) [address], [place], [address], 09/29/2022 04:18:35 09/29/19 23 09/28/2022 CMP(C OMPRE HENSI VE METAB OLIC PANEL ) AST 17 units /L 13-39 Not Available [facility] (Lab) [address], [place], [address], 09/29/2022 04:18:35 09/29/19 23 09/28/2022 CMP(C OMPRE HENSI VE METAB OLIC PANEL ) bilirubin, total 0.6 mg/dL 0.2-1. 2 Not Available [facility] (Lab) [address], [place], [address], 09/29/2022 04:18:35 09/29/19 23 09/28/2022 T4 FREE T4, free 1.25 NG/dL 0.60-1 .40 Not Available [facility] (Lab) [address], [place], [address], 09/29/2022 04:18:36 09/29/19 23 09/28/2022 FREE T3 T3, free 4.72 pg/mL 2.50-3 .90 high Not Available [facility] (Lab) [address], [place], [address], 09/29/2022 04:18:36 09/29/19 23 09/28/2022 TSH TSH <0.01 uIU/m L 0.30-5 .33 low Not Available [facility] (Lab) [address], [place], [address], 09/29/2022 04:18:36 10/13/19 24 10/14/2023 LIPID PANEL , STAND RADHA cholesterol, total 195 mg/dL <200 normal Not Available [facility] [address] [place], [address], 10/14/2023 14:20:22 10/13/19 24 10/14/2023 LIPID PANEL , STAND RADHA HDL cholesterol 53 mg/dL > or = 50 normal Not Available [facility] [address], [place], [address], 10/14/2023 14:20:22 10/13/19 24 10/14/2023 LIPID PANEL , STAND RADHA triglyceride s 137 mg/dL <150 normal Not Available [facility] [address] [place], [address], 10/14/2023 14:20:22 10/13/19 24 10/14/2023 LIPID PANEL , STAND RADHA LDL-choleste rol 117 mg/dL _(alan c) high Refer ence range : <100 Radha able range <100 mg/dL for prima ry preve ntion ; <70 mg/dL for patie nts with CHD or diabe tic patie nts with > or = 2 CHD risk facto rs. LDL-C is now calcu lated using the Cristina n-Hop kins calcu heather n, which is a valid ated novel jimmie dhaliwalte r accur acy than the Fried tyler equat ion in the estim ation of LDL-C . Cristina chang SS et al. LAUREN. 2013; 310(1 9): 2061- 2068 (http ://ed ucati on.[facility] [employer]/f aq/FA Q164) Not Available [facility] [address], [place], [address], 10/14/2023 14:20:22 10/13/19 24 10/14/2023 LIPID PANEL , STAND RADHA chol/HDLC ratio 3.7 (calc ) <5.0 normal Not Available [facility] [address], [place], [address], 10/14/2023 14:20:22 10/13/19 24 10/14/2023 LIPID PANEL , STAND RADHA non HDL cholesterol 142 mg/dL _(alan c) <130 high For patie nts with diabe marie plus 1 major ASCVD risk facto r, treat ing to a non-H DL-C goal of <100 mg/dL (LDL- C of <70 mg/dL ) is consi danikad a thera peuti c optio n. Not Available [address], [address], 10/14/2023 14:20:22 10/13/19 24 10/14/2023 COMPR EHENS BEBE METAB OLIC PANEL glucose 83 mg/dL 65-99 normal Fasti ng refer ence inter carlos Not Available [address], [address], 10/14/2023 14:20:23 10/13/19 24 10/14/2023 COMPR EHENS BEBE METAB OLIC PANEL urea nitrogen (BUN) 10 mg/dL 7-25 normal Not Available [address], [address], 10/14/2023 14:20:23 10/13/19 24 10/14/2023 COMPR EHENS BEBE METAB OLIC PANEL creatinine 0.49 mg/dL 0.50-1 .03 low Not Available [address], [address], 10/14/2023 14:20:23 10/13/19 24 10/14/2023 COMPR EHENS BEBE METAB OLIC PANEL eGFR 113 mL/mi n/1.7 3m2 > or = 60 normal Not Available [address], [address], 10/14/2023 14:20:23 10/13/19 24 10/14/2023 COMPR EHENS BEBE METAB OLIC PANEL BUN/creatini ne ratio 20 (calc ) 6-22 normal Not Available [address], [address], 10/14/2023 14:20:23 10/13/19 24 10/14/2023 COMPR EHENS BEBE METAB OLIC PANEL sodium 139 mmol/ L 135-14 6 normal Not Available [address], [address], 10/14/2023 14:20:23 10/13/19 24 10/14/2023 COMPR EHENS BEBE METAB OLIC PANEL potassium 4.6 mmol/ L 3.5-5. 3 normal Not Available [address], [address], 10/14/2023 14:20:23 10/13/19 24 10/14/2023 COMPR EHENS BEBE METAB OLIC PANEL chloride 103 mmol/ L 98-110 normal Not Available [address], [address], 10/14/2023 14:20:23 10/13/19 24 10/14/2023 COMPR EHENS BEBE METAB OLIC PANEL carbon dioxide 28 mmol/ L 20-32 normal Not Available [address], [address], 10/14/2023 14:20:23 10/13/19 24 10/14/2023 COMPR EHENS BEBE METAB OLIC PANEL calcium 9.1 mg/dL 8.6-10 .4 normal Not Available [address], [address], 10/14/2023 14:20:23 10/13/19 24 10/14/2023 COMPR EHENS BEBE METAB OLIC PANEL protein, total 6.6 g/dL 6.1-8. 1 normal Not Available [address], [address], 10/14/2023 14:20:23 10/13/19 24 10/14/2023 COMPR EHENS BEBE METAB OLIC PANEL albumin 3.8 g/dL 3.6-5. 1 normal Not Available [address], [address], 10/14/2023 14:20:23 10/13/19 24 10/14/2023 COMPR EHENS BEBE METAB OLIC PANEL globulin 2.8 g/dL_ (calc ) 1.9-3. 7 normal Not Available [address], [address], 10/14/2023 14:20:23 10/13/19 24 10/14/2023 COMPR EHENS BEBE METAB OLIC PANEL albumin/glob ulin ratio 1.4 (calc ) 1.0-2. 5 normal Not Available [address], [address], 10/14/2023 14:20:23 10/13/19 24 10/14/2023 COMPR EHENS BEBE METAB OLIC PANEL bilirubin, total 0.4 mg/dL 0.2-1. 2 normal Not Available [address], [address], 10/14/2023 14:20:23 10/13/19 24 10/14/2023 COMPR EHENS BEBE METAB OLIC PANEL alkaline phosphatase 35 U/L 37-153 low Not Available [address], [address], 10/14/2023 14:20:23 10/13/19 24 10/14/2023 COMPR EHENS BEBE METAB OLIC PANEL AST 12 U/L 10-35 normal Not Available [address], [address], 10/14/2023 14:20:23 10/13/19 24 10/14/2023 COMPR EHENS BEBE METAB OLIC PANEL ALT 11 U/L 6-29 normal Not Available [address], [address], 10/14/2023 14:20:23 10/13/19 24 10/14/2023 CBC (INCL UDES DIFF/ PLT) white blood cell count 6.1 thous and/u L 3.8-10 .8 normal Not Available [address] [place], [address], 10/14/2023 14:20:23 10/13/19 24 10/14/2023 CBC (INCL UDES DIFF/ PLT) red blood cell count 4.53 oliverio on/uL 3.80-5 .10 normal Not Available [address], [address], 10/14/2023 14:20:23 10/13/19 24 10/14/2023 CBC (INCL UDES DIFF/ PLT) hemoglobin 14.0 g/dL 11.7-1 5.5 normal Not Available [address], [address], 10/14/2023 14:20:23 10/13/19 24 10/14/2023 CBC (INCL UDES DIFF/ PLT) hematocrit 41.0 % 35.0-4 5.0 normal Not Available [address], [address], 10/14/2023 14:20:23 10/13/19 24 10/14/2023 CBC (INCL UDES DIFF/ PLT) MCV 90.5 fL 80.0-1 00.0 normal Not Available [address], [address], 10/14/2023 14:20:23 10/13/19 24 10/14/2023 CBC (INCL UDES DIFF/ PLT) MCH 30.9 pg 27.0-3 3.0 normal Not Available [facility] [address], [address], 10/14/2023 14:20:23 10/13/19 24 10/14/2023 CBC (INCL UDES DIFF/ PLT) MCHC 34.1 g/dL 32.0-3 6.0 normal Not Available [facility] [address], [address], 10/14/2023 14:20:23 10/13/19 24 10/14/2023 CBC (INCL UDES DIFF/ PLT) RDW 11.9 % 11.0-1 5.0 normal Not Available [address], [address], 10/14/2023 14:20:23 10/13/19 24 10/14/2023 CBC (INCL UDES DIFF/ PLT) platelet count 289 thous and/u L 140-40 0 normal Not Available [address], [address], 10/14/2023 14:20:23 10/13/19 24 10/14/2023 CBC (INCL UDES DIFF/ PLT) MPV 9.7 fL 7.5-12 .5 normal Not Available [address], [address], 10/14/2023 14:20:23 10/13/19 24 10/14/2023 CBC (INCL UDES DIFF/ PLT) absolute neutrophils 3312 cells /uL 1500-7 800 normal Not Available [address], [address], 10/14/2023 14:20:23 10/13/19 24 10/14/2023 CBC (INCL UDES DIFF/ PLT) absolute lymphocytes 2129 cells /uL 850-39 00 normal Not Available [address], [address], 10/14/2023 14:20:23 10/13/19 24 10/14/2023 CBC (INCL UDES DIFF/ PLT) absolute monocytes 531 cells /uL 200-95 0 normal Not Available [address], [address], 10/14/2023 14:20:23 10/13/19 24 10/14/2023 CBC (INCL UDES DIFF/ PLT) absolute eosinophils 110 cells /uL 15-500 normal Not Available [facility] [address], [address], 10/14/2023 14:20:23 10/13/19 24 10/14/2023 CBC (INCL UDES DIFF/ PLT) absolute basophils 18 cells /uL 0-200 normal Not Available [address], [address], 10/14/2023 14:20:23 10/13/19 24 10/14/2023 CBC (INCL UDES DIFF/ PLT) neutrophils 54.3 % normal Not Available [facility] [address], [address], 10/14/2023 14:20:23 10/13/19 24 10/14/2023 CBC (INCL UDES DIFF/ PLT) lymphocytes 34.9 % normal Not Available [address], [address], 10/14/2023 14:20:23 10/13/19 24 10/14/2023 CBC (INCL UDES DIFF/ PLT) monocytes 8.7 % normal Not Available [address], [address], 10/14/2023 14:20:23 10/13/19 24 10/14/2023 CBC (INCL UDES DIFF/ PLT) eosinophils 1.8 % normal Not Available [address], [address], 10/14/2023 14:20:23 10/13/19 24 10/14/2023 CBC (INCL UDES DIFF/ PLT) basophils 0.3 % normal Not Available [address], [address], 10/14/2023 14:20:23 10/13/19 24 10/14/2023 T4, FREE T4, free 2.2 NG/dL 0.8-1. 8 high Not Available [address], [address], 10/14/2023 14:20:23 10/13/19 24 10/14/2023 TSH TSH <0.01 mIU/L low Refer ence Range > or = 20 Years 0.40- 4.50 Pregn alexander Range s First trime ster 0.26- 2.66 Secon d trime ster 0.55- 2.73 Third trime ster 0.43- 2.91 Not Available [address] [address] [place], [address], 10/14/2023 14:20:24 10/13/19 24 10/14/2023 T3, FREE T3, free 6.1 pg/mL 2.3-4. 2 high Not Available [facility] [address] [place], [address], 10/14/2023 14:20:24 10/13/19 24 10/14/2023 HEMOG LOBIN A1C hemoglobin A1C 5.2 %_of_ total _HGB <5.7 normal For the purpo se of scree autumn for the prese nce of diabe marie: <5.7% Consi stent with the absen ce of diabe marie 5.7-6 .4% Consi stent with incre ased risk for diabe marie (pred iabet es) > or =6.5% Consi stent with diabe marie This assay resul t is consi stent with a decre ased risk of diabe marie. Curre ntly, no conse nsus exist s aaksah bermeo use of hemog lobin A1c for diagn osis of diabe marie in child javier. Accor ding to Ameri can Diabe marie Assoc iatio n (ADA) guide lines , hemog lobin A1c <7.0% repre sents optim al contr ol in non-p regna nt diabe tic patie nts. Diffe rent metri cs may apply to speci fic patie nt popul ation s. Stand ards of Medic al Care in Diabe marie(A DA). This test was perfo rmed on the [facility]ien [facility] c503 platf orm. Effec tive , a dara lackey in test platf orms from the [facility] Ar[facility] tect to the Hien devon c503 may have shift ed HbA1c resul ts lili red to histo rical resul ts. Based on labor atory valid ation testi ng condu cted at [facility] , the Hien platf orm relat bebe to the [facility]bot t platf orm had an avera ge incre ase in HbA1c value of < or = 0.3%. This diffe rence is withi n accep judith varia bilit y estab lishe d by the Natio nal Glyco hemog lobin Stand ardiz ation Progr am. Note that not all indiv idual s will have had a shift in their resul ts and direc t lili rison s betwe en histo rical and curre nt resul ts for testi ng condu cted on diffe rent platf orms is not recom mariana d. Not Available [facility] [address] [address] [place], [address], 10/14/2023 14:20:25 12/15/19 24 12/16/2023 T4, FREE T4, free 1.9 NG/dL 0.8-1. 8 high Not Available [facility] [address], [address], 12/16/2023 06:47:20 12/15/19 24 12/16/2023 TSH TSH <0.01 mIU/L low Refer ence Range > or = 20 Years 0.40- 4.50 Pregn alexander Range s First trime ster 0.26- 2.66 Secon d trime ster 0.55- 2.73 Third trime ster 0.43- 2.91 Not Available [facility] [address] [address] [place], [address], 12/16/2023 06:47:21 12/15/19 24 12/16/2023 T3, FREE T3, free 7.3 pg/mL 2.3-4. 2 high Not Available [facility] [address] [place], [address], 12/16/2023 06:47:21 01/29/20 24 01/30/2024 T4, FREE T4, free 1.9 NG/dL 0.8-1. 8 high Not Available [address], [address], 01/30/2024 07:02:02 01/29/20 24 01/30/2024 TSH TSH <0.01 mIU/L low Refer ence Range > or = 20 Years 0.40- 4.50 Pregn alexander Range s First trime ster 0.26- 2.66 Secon d trime ster 0.55- 2.73 Third trime ster 0.43- 2.91 Not Available [address], [address], 01/30/2024 07:02:03 01/29/20 24 01/30/2024 T3, FREE T3, free 6.9 pg/mL 2.3-4. 2 high Not Available [address], [address], 01/30/2024 07:02:03 03/16/20 24 03/17/2024 T4, FREE T4, free 1.8 NG/dL 0.8-1. 8 normal Not Available [address], [address], 03/17/2024 06:11:29 03/16/20 24 03/17/2024 TSH TSH 0.02 mIU/L low Refer ence Range > or = 20 Years 0.40- 4.50 Pregn alexander Range s First trime ster 0.26- 2.66 Secon d trime ster 0.55- 2.73 Third trime ster 0.43- 2.91 Not Available [address], [address], 03/17/2024 06:11:30 03/16/20 24 03/17/2024 T3, FREE T3, free 4.9 pg/mL 2.3-4. 2 high Not Available [facility] [address] [address], [place], [address], 03/17/2024 06:11:31 10/07/19 19 10/05/2018 CT, coron kathryn calci um score No observ ation record ed. [facility] [address], [place], [address], 10/07/2018 09:24:51 Result Notes None recorded. Problems Name Problem SNOMED Code Status Onset Date Resolution Date Notes Provider Name and Address Organization Details Recorded Time Menorrhagia 095303873 Active Jaya Douglas MD [address] [place], [address] , [facility] 6 20:41:44 Depressive disorder 86633202 Active Shruti Saelara [address] [place] [address], [phone] , [facility] 4 13:23:20 Hypothyroidis m 19260139 Active Shruti Foote [address] [place] [address], [address] , [facility] 6 00:47:47 Elevated level of transaminase and lactic acid dehydrogenase 197998986 Active Jaya Douglas MD [address] [place], [address] , [facility] 6 20:41:44 Problem Notes None recorded. Procedures Surgical History None recorded. Imaging Results Imaging Date Name Status LastModified by Organiz ation Details LastModified Time 10/05/2018 CT, coronary calcium score completed [facility] [address], [place], [address], 10/07/2018 09:24:51 Procedure Notes None recorded. Medical Equipment None Reported. Allergies No known drug allergies Medications Name Sig Start Date Stop Date Status Note LastModified by Organization Details LastModified Time compounded medication Take one capsule by mouth first thing every morning one-half hour before food or supplemen ts. active Not Available Not Available No t Available compounded medication Take one capsule by mouth first thing every morning one-half hour before food or supplemen ts. 12/17 completed Not Available Not Available Not Available compounded medication Take one capsule by mouth first thing every morning one-half hour before food or supplemen ts. 06/03 completed Not Available Not Available Not Available compounded medication TAKE 1 CAPSULE BY MOUTH EVERY MORNING 30 MINUTES BEFORE FOOD OR SUPPLEMEN TS 10/20 completed Not Available Not Available Not Available compounded medication Take one capsule by mouth first thing every morning one-half hour before food or supplemen ts. active Not Available Not Available No t Available compounded medication TAKE 1 CAPSULE BY MOUTH EVERY MORNING 30 MINUTES BEFORE FOOD OR SUPPLEMEN TS 12/17 completed Not Available Not Available Not Available compounded medication Take one capsule by mouth first thing every morning one-half hour before food or supplemen ts. 09/01 completed Not Available Not Available Not Available compounded medication TAKE 1 CAPSULE BY MOUTH EVERY MORNING 30 MINUTES BEFORE FOOD OR SUPPLEMEN TS 10/20 completed Not Available Not Available Not Available compounded medication TAKE 1 CAPSULE BY MOUTH EVERY MORNING 30 MINUTES BEFORE FOOD OR SUPPLEMEN TS 12/17 completed Not Available Not Available Not Available compounded medication Take one capsule by mouth first thing every morning one-half hour before food or supplemen ts. 06/03 completed Not Available Not Available Not Available compounded medication Take one capsule by mouth once every day active Not Available Not Available No t Available compounded medication Take one capsule by mouth first thing every morning one-half hour before food or supplemen ts. 06/03 completed Not Available Not Available Not Available compounded medication TAKE 1 CAPSULE BY MOUTH EVERY MORNING 30 MINUTES BEFORE FOOD OR SUPPLEMEN TS 12/18 completed Not Available Not Available Not Available compounded medication TAKE 1 CAPSULE BY MOUTH EVERY MORNING 30 MINUTES BEFORE FOOD OR SUPPLEMEN TS 12/31 completed Not Available Not Available Not Available compounded medication Take one capsule by mouth first thing every morning one-half hour before food or supplemen ts. active Not Available Not Available No t Available compounded medication Take one capsule by mouth once every day 06/03 completed Not Available Not Available Not Available compounded medication TAKE 1 CAPSULE BY MOUTH EVERY MORNING 30 MINUTES BEFORE FOOD OR SUPPLEMEN TS active Not Available Not Available No t Available compounded medication TAKE 1 CAPSULE BY MOUTH EVERY MORNING 30 MINUTES BEFORE FOOD OR SUPPLEMEN TS 2023 active Not Available Not Available Not Avai lable compounded medication Take one capsule by mouth first thing every morning one-half hour before food or supplemen ts. active Not Available Not Available No t Available compounded medication TAKE 1 CAPSULE BY MOUTH EVERY MORNING 30 MINUTES BEFORE FOOD OR SUPPLEMEN TS 2023 active Not Available Not Available Not Avai lable compounded medication TAKE 1 CAPSULE BY MOUTH EVERY MORNING 30 MINUTES BEFORE FOOD OR SUPPLEMEN TS 12/31 completed Not Available Not Available Not Available compounded medication TAKE 1 CAPSULE BY MOUTH EVERY MORNING 30 MINUTES BEFORE FOOD OR SUPPLEMEN TS active Not Available Not Available No t Available compounded medication 1 PO DAILY 06/03 completed Not Available Not Available Not Available compounded medication Take one capsule by mouth first thing every morning one-half hour before food or supplemen ts. 12/17 completed Not Available Not Available Not Available compounded medication TAKE 1 CAPSULE BY MOUTH EVERY MORNING 30 MINUTES BEFORE FOOD OR SUPPLEMEN TS 12/17 completed Not Available Not Available Not Available compounded medication Take one capsule by mouth first thing every morning one-half hour before food or supplemen ts. active Not Available Not Available No t Available compounded medication TAKE 1 CAPSULE BY MOUTH EVERY MORNING 30 MINUTES BEFORE FOOD OR SUPPLEMEN TS active Not Available Not Available No t Available compounded medication TAKE 1 CAPSULE BY MOUTH EVERY MORNING 30 MINUTES BEFORE FOOD OR SUPPLEMEN TS active Not Available Not Available No t Available compounded medication TAKE 1 CAPSULE BY MOUTH EVERY MORNING 30 MINUTES BEFORE FOOD OR SUPPLEMEN TS 2023 active Not Available Not Available Not Avai lable compounded medication TAKE 1 CAPSULE BY MOUTH EVERY MORNING 30 MINUTES BEFORE FOOD OR SUPPLEMEN TS 2023 active Not Available Not Available Not Avai lable compounded medication TAKE 1 CAPSULE BY MOUTH EVERY MORNING 30 MINUTES BEFORE FOOD OR SUPPLEMEN TS 11/24 completed Not Available Not Available Not Available compounded medication TAKE 1 CAPSULE BY MOUTH EVERY MORNING 30 MINUTES BEFORE FOOD OR SUPPLEMEN TS 10/20 completed Not Available Not Available Not Available compounded medication TAKE 1 CAPSULE BY MOUTH EVERY MORNING 30 MINUTES BEFORE FOOD OR SUPPLEMEN TS 12/17 completed Not Available Not Available Not Available compounded medication 1 po daily 06/03 completed Not Available Not Available Not Available compounded medication Take one capsule by mouth first thing every morning one-half hour before food or supplemen ts. active Not Available Not Available No t Available compounded medication Take one capsule by mouth first thing every morning one-half hour before food or supplemen ts. 06/03 completed Not Available Not Available Not Available compounded medication TAKE 1 CAPSULE BY MOUTH EVERY MORNING 30 MINUTES BEFORE FOOD OR SUPPLEMEN TS 10/20 completed Not Available Not Available Not Available t4-t3 e4m 270-44mcg capsules 10/20 completed Not Available Not Available Not Available compounded medication Take one capsule by mouth first thing every morning one-half hour before food or supplemen ts. 09/01 completed Not Available Not Available Not Available compounded medication TAKE 1 CAPSULE BY MOUTH EVERY MORNING 30 MINUTES BEFORE FOOD OR SUPPLEMEN TS 2023 active Not Available Not Available Not Avai lable cyclobenzap rine 10 mg tablet active Not Available Not Available Not Available atorvastati n 20 mg tablet TAKE 1 TABLET BY MOUTH EVERY DAY AT BEDTIME 09/28 completed Not Available Not Available Not Available azithromyci n 250 mg tablet active Not Available Not Available Not Available acetazolami de 125 mg tablet active Not Available Not Available Not Available hydrocodone 5 mg-acetamin ophen 325 mg tablet 12/17 completed Not Available Not Available Not Available meloxicam 15 mg tablet TAKE 1 TABLET BY MOUTH EVERY DAY WITH FOOD 09/28 completed Not Available Not Available Not Available spironolact one 100 mg tablet TAKE 1 TABLET BY MOUTH DAILY active Not Available Not Available No t Available penicillin V potassium 500 mg tablet 06/03 completed Not Available Not Available Not Available phentermine 37.5 mg tablet TAKE 1 TABLET BY MOUTH EVERY DAY 10/20 completed Not Available Not Available Not Available acetaminoph en 300 mg-codeine 30 mg tablet TAKE 1 TABLET BY MOUTH EVERY 6 HOURS NEEDED 09/28 completed Not Available Not Available Not Available ciprofloxac in 500 mg tablet TK 1 T PO Q 12 H 10/20 completed Not Available Not Available Not Available sulfamethox azole 800 mg-trimetho prim 160 mg tablet active Not Available Not Available Not Available tramadol 50 mg tablet TAKE 1 TABLET BY MOUTH EVERY 6 HOURS NEEDED 12/18 completed Not Available Not Available Not Available oxycodone-a cetaminophe n 5 mg-325 mg tablet active Not Available Not Available No t Available amoxicillin 875 mg tablet TK 1 T PO Q 12 H 09/01 completed Not Available Not Available Not Available pravastatin 10 mg tablet TAKE 1 TABLET BY MOUTH DAILY 09/28 completed Not Available Not Available Not Available tobramycin 0.3 % eye drops 06/03 completed Not Available Not Available Not Available olopatadine 0.1 % eye drops INSTILL 1 DROP IN OU BID UTD 06/03 completed Not Available Not Available Not Available nitroglycer in 0.4 mg sublingual tablet 06/03 completed Not Available Not Available Not Available pravastatin 20 mg tablet TAKE 1 TABLET BY MOUTH EVERY DAY 10/20 completed Not Available Not Available Not Available zolpidem 5 mg tablet TK 1 T PO QHS 09/01 completed Not Available Not Available Not Available ergocalcife rol (vitamin D2) 1,250 mcg (50,000 unit) capsule TK 1 C PO Q WEEK UTD 06/03 completed Not Available Not Available Not Available ibuprofen 600 mg tablet active Not Available Not Available Not Available methylpredn isolone 4 mg tablets in a dose pack TK UTD 09/01 completed Not Available Not Available Not Available Prozac 10 mg capsule Take 1 capsule every day by oral route. 12/17 completed Not Available Not Available Not Available hydrocortis one 2.5 % topical ointment APPLY TOPICALLY TO LIPS TWICE DAILY NEEDED 10/20 completed Not Available Not Available Not Available ondansetron 4 mg disintegrat ing tablet DISSOLVE 1 TABLET ON THE TONGUE EVERY 6 HOURS NEEDED 10/20 completed Not Available Not Available Not Available finasteride 5 mg tablet TAKE 1 TABLET BY MOUTH TWICE WEEKLY 10/20 completed Not Available Not Available Not Available phentermine 37.5 mg capsule TK 1 C PO D 12/17 completed Not Available Not Available Not Available progesteron e micronized 100 mg capsule TAKE 1 CAPSULE BY MOUTH IN THE EVENING active Not Available Not Available No t Available bupropion HCl XL 150 mg 24 hr tablet, extended release TK 1 T PO QD 06/03 completed Not Available Not Available Not Available nitrofurant oin monohydrate /macrocryst als 100 mg capsule TAKE 1 CAPSULE BY MOUTH EVERY 12 HOURS FOR 5 DAYS 10/20 completed Not Available Not Available Not Available tranexamic acid 650 mg tablet active Not Available Not Available Not Available PCCA T4 Sodium Dilution 1 mg/gram powder TAKE 1 CAPSULE BY MOUTH DAILY 2014 active Not Available Not Available Not Avai lable Contrave 8 mg-90 mg tablet,exte nded release TK 1 PO QAM X 7 DAYS 1 BID X 7 DAYS 2 QAM AND 1 QPM X 7 DAYS THEN 2 BID X 7 DAYS active Not Available Not Available No t Available Vitals Date Recorded Body weight Body mass index (BMI) Body height Heart rate Systolic blood pressure Diastolic blood pressure Provider Name and Address Organization Details Last Updated DateTime 9 35904.8 9 g 29.5 kg/m2 162.56 cm 80 /min 113 mm[Hg] 76 mm[Hg] [facility] 9 16:12:12 Date Recorded Body temperature Body height Body mass index (BMI) Body weight Heart rate Systolic blood pressure Diastolic blood pressure Provider Name and Address Organization Details Last Updated DateTime 1 97.9 [degF] 162.56 cm 30.6 kg/m2 32272.4 4 g 96 /min 119 mm[Hg] 81 mm[Hg] [facility] 1 11:51:01 Date Recorded Body weight Body mass index (BMI) Body height Body temperature Heart rate Systolic blood pressure Diastolic blood pressure Provider Name and Address Organization Details Last Updated DateTime 2 34407.4 4 g 30.6 kg/m2 162.56 cm 97.3 [degF] 99 /min 120 mm[Hg] 81 mm[Hg] Brando Blackburn [facility] 2 10:48:51 Date Recorded Body height Body mass index (BMI) Body weight Body temperature Heart rate Systolic blood pressure Diastolic blood pressure Provider Name and Address Organization Details Last Updated DateTime 3 162.56 cm 27.8 kg/m2 02574.9 6 g 97.3 [degF] 120 /min 113 mm[Hg] 82 mm[Hg] Brando Blackburn [facility] 3 12:18:40 Date Recorded Heart rate Provider Name an d Address Organization Details Last Updated DateTime 09/28/2022 113 /min Shruti Quevedolara [address] [place], [address], [place] [facility] 09/28/2022 12:54:16 Date Recorded Body weight Body mass index (BMI) Body height Respiratory rate Heart rate Systolic blood pressure Diastolic blood pressure Provider Name and Address Organization Details Last Updated DateTime 4 87472.9 4 g 26.5 kg/m2 162.56 cm 98 /min 102 /min 106 mm[Hg] 80 mm[Hg] Brando Blackburn [facility] 4 10:10:06 Social History Question Answer Notes LastModified by Organizat ion Details LastModified Time Tobacco Smoking Status Never Smoker [place] Guzman [facility] 10/21/2023 10:08:54 What Is Your Level Of Alcohol Consumption? Occasional amalic Information not available 10/21/2023 Sex: Unknown Functional Status None recorded. Mental Status None recorded. Family History Nothing Reported. Medical History Condition Response Hypothyroidism Y Gynecological HistoryNo gynecological history recorded. Obstetrics History GPAL:G 0 P 0 0 0 0 Past Encounters Encounter ID Performer Location Encounter Start Date Encounter Closed Date Diagnosis/Indication Diagnosis SNOMED-CT Code Diagnosis ICD10 Code Diagnosis Note [id number] Jaya Douglas MD Main Office [address] [place] [address] 11/24/2013 12:54:18 11/24/2013 13:24:53 Hypothyroidism 05706144 Menorrhagia 248217849 [id number] Jaya Douglas MD Main Office [address] [place] [address] 3 03/14/2014 12:40:45 03/14/2014 13:31:06 Hypothyroidism 92914599 Depressive disorder 62661209 [id number] Jaya Douglas MD Main Office [address] [place] [address] 3 08/05/2015 15:32:58 08/05/2015 16:48:41 Hypothyroidism 87449383 E03.9 Menorrhagia 268435228 N9 2.0 Elevated l evel of transaminase and lactic acid dehydrogenase 739002819 R74.0 [id number] Jaya Douglas MD Main Office [address] [place] [address]958 3 04/08/2016 14:15:26 04/08/2016 15:12:23 Hyperlipidemia 39127868 E78.5 Hyperglycemia 78227166 R 73.9 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 [id number] Jaya Douglas MD Main Office [address] [place] [address]-842 3 06/17/2016 12:59:49 06/17/2016 13:59:48 Hyperlipidemia 62956434 E78.5 Hypothyroidism 84320753 E03.9 [id number] Jaya Douglas MD Main Office [address] [place] [address] 3 06/03/2017 16:57:27 06/03/2017 17:55:28 Hypothyroidism 02579006 E03.9 Insomnia 933686306 G47.0 0 [id number] Jaya Douglas MD Main Office [address] [place] [address] 3 09/01/2018 16:02:28 09/01/2018 17:00:15 Hypothyroidism 10743572 E03.9 Hypertriglyceridemia 302 526587 E78.1 [id number] Jaya Douglas MD Main Office [address] [place] [address]99-074 3 12/17/2020 11:48:52 12/17/2020 12:33:05 Hypothyroidism 89280670 E03.9 Hyperlipidemia 01859876 E78.5 Joint pain 12027379 M25. 50 [id number] Jaya Douglas MD Main Office [address] [place] [address] 3 12/18/2021 10:46:39 12/18/2021 11:25:46 Hypothyroidism 76986453 E03.9 Menopause present 296656 006 N95.1 Adult heal th examination 941904659 Z00.00 [id number] Jaya Douglas MD Main Office [address] [place] [address] 3 09/28/2022 12:13:30 09/28/2022 12:59:12 Hypothyroidism 77131529 E03.9 Menopause present 625703 006 N95.1 Adult heal th examination 351304500 Z00.00 Hyperlipidemia 10834915 E78.5 [id number] Jaya Douglas MD Main Office [address] [place] [address] 88914-892 3 10/21/2023 10:05:49 10/21/2023 10:57:53 Hypothyroidism 51020395 E03.9 Adult heal th examination 961862568 Z00.00 Health Concerns Section Related Observation LastModified by Organization Detai ls LastModified Time None Recorded Concern Status LastModified by Organization Details LastModified Time None Recorded Advance Directives Directive None Recorded Payers Encounter Date Sequence Insurance Name Policy Number Policy Hall Covered Member ID Hall Member ID Guarantor Name 09/01/2018 1 [facility] [id number] Keysha Gage Ghislaine [id number] Keyshamarshall Scanlon 12/17/2020 1 [facility] [id number] Keysha [place] [id number] Keysha Ghislaine 12/18/2021 1 [facility] [id number] Keysha F [place] [id number] Keysha Ghislaine 09/28/2022 1 [facility] [id number] Keysha F [place] [id number] Keysha Pimentelene 10/21/2023 1 [facility] [id number] Keysha Gage Ghislaine [id number] Keysha Scanlon Notes Date Note Type Note Provider Name and Address Organization Details Recorded Time 09/01/2018 text/html Hypothyroidism - Overall doing well. Sleep is good. Mood - taking Prozac. Now has a grandchild.Libido has dropped now. Jaya Douglas MD [address] [place], [address], [facility] 09/01/2018 19:06:00 12/17/2020 text/html Here today for refill on thyroid.Now having hot flashes in the past week.Menses - had ablation. Not having a cycle.Sleep - not sleeping well in the past week. Takes OTC sleep aid. Will fall asleep. Just ordered magnesium to try. Would rather not take the sleep aid. Wake a lot.Surgery on right knee in February. Didn't have to do PT. Has been doing orange theory since July. Was only going 2 times per week. Feeling this some. Has time with arthritis and inflammation. Jaya Douglas MD [address] [place], [address], [facility] 12/17/2020 22:55:00 12/18/2021 text/html Has testosterone pellets and taking progesterone pill at night. Also hasSleep - much better. Has a libido now. Energy level is better. Has only been on the hormones for 2 1/2 weeks. Would like to lose 15 - 20lbs. Patient denies heart palpitations. Sleep - 10pm - 6:30am.No longer having a lull in energy in the afternoon. Able to work out. Breathing is normal with this. Diet -Protein shake - Syntha 6 with banana with water.Weight watcher vanilla with blueberries and strawberries.L: nothing. When working would eat - tuna and quest chips, 1/2 sandwich and salad.D: Burrito supreme - Taco Manriquez.Salad or grill.Drinks - water. Coffee - 2 cups - with creamer - nondairy creamer powderAlcohol - 4 days per week - 3 - 4 Vodka and club soda. or red wine Jaya Douglas MD [address] [place], [address], [facility] 12/18/2021 20:24:04 09/28/2022 text/html Keysha is here today for check up on her thyroid.Abdomen - she was having pain on her upper abdomen and then a CT was done.CT - found calcium in arteries. She saw her bi specialist and her number increased to 23.She has been able to lose weight. She took phentermine 3 days per week. She is eating less and drinking lots of water.Heart - She denies heart palpitations.August 12 she had blood work done. Jaya Douglas MD [address] [place], [address], [facility] 09/29/2022 22:01:55 10/21/2023 text/html Keysha is here today for check up - He is feeling very tired. She had blood work drawn and would like to review his lab results. Mom in June. Now she is helping his dad. He has dementia. She exercises regularly. Jaya Douglas MD [address] [place], [address], [facility] 10/24/2023 18:55:01 OBGyn Episode No OBEpisode recorded.
--- OUTSIDE RECORDS SUMMARY | 2024-10-16 14:07 | XMS_ITS | Encounter Summary ---
Author Organization [facility] Address [address] [place] [address] Care Team Providers Care Head Athletic Trainer/Strength Coach Name Role Phone Polina Hardy Primary Care Provider [phone] Encounter Details Date Type Department Care Team (Latest Contact Info) Description 07/15/2000 Outpatient Historical [facility] Lb Tanner MD [address] [facility] [address] [place] [address] Unspecified high-risk (Primary Dx) Social History Tobacco Use Types Packs/Day Years Used Date Smoking Tobacco: Never Assessed Comments Unknown Sex and Gender Information Value Date Recorded Sex Assigned at Not on file 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
--- OUTSIDE RECORDS SUMMARY | 2024-10-16 14:07 | XMS_ITS | Encounter Summary ---
Author Organization [facility] Address 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
--- OUTSIDE RECORDS SUMMARY | 2024-10-16 14:07 | XMS_ITS ---
Author Organization [facility] Address [address] [facility] [address] [address] Care Team Providers Care Vice President Medical Affairs Name Role Phone zzzzMigration, zzzzProvider Unavailable Unav ailable Allergies No Known Allergies REASON FOR VISIT [facility] Medications Medication SIG (Take, Route, Frequency, Duration) Notes Start Date End Date Status t3 and t4 compound t3 310 mg t4 55 mg daily *Reorder from [facility] for eRx and Interaction Alerts* Active Encounters Encounter Location Date Provider Diagnosis [facility] [address] [facility] [address] [address] 05/16/2023 zzzzProvider zzzzMigration Plan Of Treatment No Information Progress Notes * Keysha ROSS FDOB: [birth year] (54 yo F)Acc No.[id number]:05/16/2023 Patient: Keysha CARRILLO :1970 A ge:53 Y S ex:Female Phone: Address:[address] [place] [address], [place], [address] Subjective: * Chief Complaints: * E MR-Tom * Medical History: * Tool Machinist History: M igrated GYNHistory M enstrual:: ,LMP: 02/21/2013, . * OB History: M igrated OBHistory P regnancy:: Total Pregnancies: 3, Livin, . * Surgical History: * NO SURGERIES; 2013-03-14 * Hospitalization/Major Diagno stic Procedure: * Family History: M igrated Family History: Father Notes: HEART,DM , Mother Notes: RA,HTN,HEART , siblings Notes: THYROID,HEART . 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 * Medications: T akingt3 and t4 compound t3 310 mg t4 55 mg daily , Notes to Pharmacist: *Reorder from [facility] for eRx and Interaction Alerts*Taking t3 and t4 compound t3 310 mg t4 55 mg daily , Notes to Pharmacist: *Reorder from [employer] for eRx and Interaction Alerts* * Allergies: N .K.D.A.no[Allergies Verified] Objective: * Vitals: * Physical Examination: Assessment: Plan: * Treatment: * Procedure Codes: * true * Date: Generated for Mike inman/Daria/Uzmasmitting on: 0 10/16/2024 02:07 PM CDT
--- OUTSIDE RECORDS SUMMARY | 2024-10-16 14:07 | XMS_ITS | Clinical Summary ---
Author Organization [facility] Address [address] [place] [address] Phone Care Team Providers Care Jewelry Maker Name Role Phone Polina Hardy Primary Care Provider [phone] Allergies No known active allergies Medications pravastatin (PRAVACHOL) 10 mg tablet TK 1 T PO D 12/20/2019 Active HYDROcodone-ted taminophen (NORCO) 5-325 mg tabletIndicatio ns:Other tear of lateral meniscus of right knee as current injury, subsequent encounter Take 1 Tablet by mouth every 4 hours as needed for Pain, Moderate. 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 Gender Identity Not on file Sexual Orientation Not on file Last Filed Vital Signs Vital Sign Reading Time Taken Comments Blood Pressure - - Pulse - - Temperature - - Respiratory Rate - - Oxygen Saturation - - Inhaled Oxygen Concentration - - Weight 78.9 kg (174 lb) 03/04/2020 1:53 PM CDT Height 162.6 cm (5' 4 ) 03/04/2020 1:53 PM CDT Body Mass Index 29.87 03/04/2020 1:53 PM CDT Plan of Treatment Health Maintenance Due Date Last Done Comments HEPATITIS B VACCINES (1 of 3 - 19+ 3-dose series) 01/23 PAP SMEAR 02/02/1992 CERVICAL CANCER SCREENING 2001 HPV/Cotest 2001 PAP SMEAR 2001 BREAST CANCER SCREENING 2011 COLORECTAL SCREENING 02/02/2016 Colorectal Cancer Screening 02/02/2016 FIT-DNA Q 3 years 02/02/2016 FIT/FOBT Q 1 year 02/02/2016 Flex Sig/CT Colonography Q 5 years 02/02/2016 ZOSTER VACCINE (1 of 2) 2021 INFLUENZA VACCINE (#1) 2024 05/11/2018 DTAP/TDAP/TD VACCINES (2 - Td or Tdap) 05/11/2028 Insurance Care Teams Jewelry Maker Relationship Specialty Start Date End Date Polina Hardy PA PCP - General Physician Parts Casting Machine Operator 01/11/20
--- OUTSIDE RECORDS SUMMARY | 2024-10-16 14:07 | XMS_ITS | Patient Health Record ---
Author Organization [facility] Address [address] [facility] [address] [place] [address] Support Name Relationship Address Phone Keysha Scanlon Guarantor Unknown Unavailable Allergies No Known Allergies Reason For Referral No Information Medications Medication SIG (Take, Route, Frequency, Duration) Notes Start Date End Date Status t3 and t4 compound t3 310 mg t4 55 mg daily *Reorder from [facility] for eRx and Interaction Alerts* Active Problems Problem Type SNOMED Code ICD Code Onset Dates Problem Status W/U Status Risk Notes Problem Hypothyroidism (55600092) Hypothyroidism, unspecified (E03.9) Active confirmed Plan Of Treatment No Information Insurance Providers Payer Name Payer Address Payer Phone Subscriber Number Group Number Insured Name Patient Relationship to Insured Coverage Start Date Coverage End Date DO NOT USE [id number] Keysha Scanlon Self - patient is the insured 3 Medical (General) History Surgical History Surgery Date(Month/Year) * NO SURGERIES; 2013-03-14
--- OUTSIDE RECORDS SUMMARY | 2024-10-16 14:07 | XMS_ITS | Clinical Summary ---
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 Name Role Phone Duarte Hardyronni JORGE Primary Care Pr ovider Young STRONG MD, Moody Phillip Unavailable [phone] Shruti Foote MD Unavailable [phone] Allergies No known active allergies Medications spironolactone (ALDACTONE) 100 mg tablet Active progesterone (PROMETRIUM) 100 mg capsule TAKE ONE BY MOUTH EVERY EVENING Active omega-3 fatty acids-fish oil (Fish OiL) 360-1,200 mg capsule Take by mouth 07/26/1968 Activ e COMPOUNDED MEDICATION, PRESCRIPTION, Compound T3-T4 210-25mg Active Active Problems Problem Noted Date Diagnosed Date Blood glucose abnormal 01/20/2024 Depressive disorder 01/20/2024 Elevation of level of transa minase and lactic acid dehydrogenase (LDH) 01/20/2024 Low back pain 01/20/2024 Menorrhagia 01/20/2024 Overweight with body mass index (BMI) 25.0-29.9 01/20/2024 Arthralgia of right knee 12/02/2022 Acute urinary tract infection 10/26/2022 Calcification of coronary artery 06/01/2022 Weight gain 05/18/2022 Left upper quadrant pain 04/13/2022 Acute pain of right knee 11/22/2019 Overview (12/26/2019): Images from the original note were not included. 11/12 labs: AVISE: 420 dsDNA (crithidia), 112 CYNTHIA IgG (strong +), 1:320 CYNTHIA homogenous, 240 anti-thyroid peroxidase Neg 14.3.3, 3.4 uric acid 12/12 xrays: Lt knee: mild OA to medial compartment Rt knee: small effusion 12/12 R knee MRI: Assessment & Plan (12/05/2019 2:44 PM CDT): Ms Scanlon is a healthy 49yo female with right knee pain and intermittent swelling with locking x 4 months along with recent +CYNTHIA and anti-chromatic labs. Family history significant for mother with RA and grandmother with UC. Recent serologies were significant for 420 dsDNA (by crithidia), 112 CYNTHIA IgG with 1:320 CYNTHIA, 240 anti-thyroid peroxidase. Uric acid was acceptable at 3.4. Radiographic imaging showed only mild OA to the medial compartment of the left knee and a small effusion in the right knee. On exam there continues to be minimal synovitis of the hands, bilateral knees had FROM and crepitus with mild swelling appreciated over the superior lateral aspect of the R knee joint. There is still low suspicion for an inflammatory arthritis vs internal derangement of R knee vs effusion 2/2 OA changes. Will send in refill for meloxicam 15mg once daily as well as an MRI R knee wo contrast for further evaluation of the swelling and locking sensation. Return in 2 months, sooner if needed. Seen with Dr. Vidal. Assessment & Plan (11/22/2019 4:36 PM CDT): Ms Scanlon is a healthy 49yo female with PMH of hypothyroidism who presents today for right knee pain and swelling x 4 months along with recent +CYNTHIA and anti- chromatic labs. States her right knee has been intermittently swelling causing pain with ambulation but denies redness or warmth to palpation. Began taking meloxicam 3 weeks ago but is unsure of any improvement as episodes occur sporadically. Also notes some lower back pain intermittently for the past year that is worse in the morning and improved with movement. Family history significant for mother with RA and grandmother with UC. Denies other CTD symptoms. On exam there was minimal synovitis of the hands, bilateral knees had FROM and mild crepitus without swelling appreciated. Low suspicion for RA vs spondyloarthropathy. However given symptoms and FH will perform appropriate radiographs and serologies. Will also check uric acid levels. Return in [address] Vidal. Mixed hyperlipidemia 08/31/2019 Abnormal C-reactive protein 10/25/2018 Abnormal laboratory test result 10/25/2018 Atherosclerosis of coronary artery bypass graft 10/25/2018 Other lipoprotein metabolism disorders 9 Vitamin D deficiency 10/25/2018 Dyslipidemia 09/27/2018 Lymphocytic thyroiditis 12/09/2013 Overview (10/29/2016): CHR LYMPHOCYT THYROIDIT Hypothyroidism 12/09/2013 Overview (10/29/2016): HYPOTHYROIDISM NOS Arthralgia 12/09/2013 Overview (10/30/2016): Joint pain Immunizations Immunization Administration Dates Next Due Influenza, Quadrivalent, Spl it, Preservative Free, Intramuscular 05/11/2018 MMR 02/11/1995 Tdap 05/11/2018 Surgical History Surgery Date Site/Laterality Comments ENDOMETRIAL ABLATION Family History Medical History Relation Name Comments Brain Aneurysm Father Dementia Father Diabetes Father Heart attack Father Heart attack Mother Hypertension Mother Lung cancer Mother Heart attack Sister Relation Name Status Comments Father Mother Sister Social History Tobacco Use Types Packs/Day Years Used Date Smoking Tobacco: Never Tobacco Cessation:Counseling Given: Not Answered Alcohol Use Standard Drinks/Week Comments Yes 0 (1 standard drink = 0.6 oz pur e alcohol) Comments Unknown Sex and Gender Information Value Date Recorded Sex Assigned at Not on file Legal Sex Female 12:27 AM RESIDENTIAL PROGRAM COORDINATOR Gender Identity Not on file Sexual Orientation Not on file 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 Not on file Not on file Not on fi le Obstetrics History Para Term AB IAB SAB Ectopic Multiple Livin g Live Births 3 3 2 1 3 3 Date Outcome GA Total Labor Labor/2nd/3rd Weight Sex Type Anes PTL Marisela A1 A5 Name Clin 08/21 2.449 kg (5 lb 6.4 oz) F Vaginal Living 11/29 Term 2.322 kg (5 lb 1.9 oz) M Vaginal Living 10/10 Term 2.631 kg (5 lb 12.8 oz) F Vaginal Living Last Filed Vital Signs Vital Sign Reading Time Taken Comments Blood Pressure 120/76 01/26/2024 11:05 AM CDT Pulse 105 08/12/2022 8:32 AM RESIDENTIAL PROGRAM COORDINATOR Temperature 37.2 C (99 F) 12/05/2019 1:42 PM CDT Respiratory Rate - - Oxygen Saturation 98% 08/12/2022 8:32 AM RESIDENTIAL PROGRAM COORDINATOR Inhaled Oxygen Concentration - - Weight 67.6 kg (149 lb) 01/26/2024 11:05 AM CDT Height 162.6 cm (5' 4 ) 01/26/2024 11:05 AM CDT Body Mass Index 25.58 01/26/2024 11:05 AM CDT Plan of Treatment Health Maintenance Due Date Last Done Comments Colon Cancer Screening-Colonoscopy 1970 Depression Screening 1970 Hepatitis C Screening 1971 Hepatitis B Screening 1989 Breast Cancer Screening-Mammogram 08/12/2018 08/12/2017, 08/05/2015, 05/28/2014, Additional history exists Zoster Vaccine (1 of 2) 2021 Covid-19 Vaccine (3 - season) 2024 07/31/2021, 02/16/2021 Influenza Vaccine (#1) 2024 05/11/2018 Cervical Cancer Screening 01/25/2025 01/26/2024, 09/2023 Regular Well Visit/Exam 18-64 01/25/2025 01/26/2024 DTaP/Tdap/Td Vaccine (2 - Td or Tdap) 05/11/2028 05/11/2018 Pneumococcal vaccine <65 Aged Out No longer eligible based on patient's age to complete this topic Procedures Procedure Name Priority Date/Time Associated Diagnosis Comments PAP AND HIGH RISK HPV, REFLEX TO GENOTYPING Routine 01/26/2024 12:19 PM CDT Screening for malignant neoplasm of the cervix Special screening examination for human papillomavirus (HPV) SCREENING MAMMOGRAM 2D BILATERAL Routine 08/12/2017 12:00 AM RESIDENTIAL PROGRAM COORDINATOR from Last 3 Months or Most Recently Relevant to Health Maintenance Results * Pap and High Risk HPV and Genotyping (Cytology Component) (01/26/2024 12:19 PM CDT) Endocervical (Pap test) 01/26/2024 12:19 PM CDT 01/28/2024 10:49 AM CDT Narrative PATHOLOGY [facility] - 2024 9:48 AM CDT EPIC results best viewed via link to PDF [address] [address] Tele: Annabelle Schumacher MD - Route Delivery Driver CYTOLOGY REPORT Note to Patients: This report may contain a detailed description of human tissue sent by a health care provider to the laboratory for pathologic evaluation. The content of this report is essential for diagnosis and may provide important critical findings. This information may be unfamiliar to patients to review without a medical professional present. It is advised that the patient review this report in the presence of a health care provider who can answer questions and explain the details. Patient Name: KEYSHA SCANLON Address: [address] [place] [address] Gender: F : 1970 (Age: 53) Service: Location: N : [id number] [facility] #: [id number] Patient Type: [facility] [place] SPECIMEN Taken: 01/26/2024 Reported: 2024 Physician(s): China Mora M.D. FINAL DIAGNOSIS: SOURCE OF SPECIMEN - ThinPrep Pap and HPV w/ reflex Genotyping: STATEMENT OF ADEQUACY Source: Cervical/Endocervical - Satisfactory for interpretation - Endocervical /Transformation Zone component present - Case screened using computer assisted imaging technology GENERAL CATEGORIZATION: - Negative for intraepithelial lesion or malignancy jxm/02/01/2024 09:48JHAAIRA Peterson (ASCP) Report Reviewed and Electronically Signed By JAHAIRA Peterson (ASCP)Clerical Data Follow A; G0145 DIAGNOSIS COMMENT: Ancillary Testing: HPV Genotype 16 - Not Detected Reference Range: Not Detected HPV Genotype 18 - Not Detected Reference Range: Not Detected HPV High Risk Group (31, 33, 35, 39, 45, 51, 52, 56, 58, 59, 66 and 68) - Not Detected Reference Range: Not Detected This test was performed using the PRISCILLA 4800 CLINICAL DIAGNOSIS AND HISTORY Menstrual History: Unknown REPORT IMAGES AND/OR SCANNED DOCUMENTS ONLY VIEWABLE IN PDF FORMAT The Pap test is a screening test used to aid in the detection of cervical cancer and its precursors. It should not be the sole means by which malignant and premalignant lesions are diagnosed. Both false negative and false positive results may occur. It also has poor sensitivity for the detection of endometrial lesions and should not be used to evaluate suspected endometrial abnormalities. For these reasons it is most important to obtain Pap tests at regular intervals, as recommended by your physician or nurse practitioner. us China Mora MD LAB CYTOLOGY ORDERABLES Fin al Result PATHOLOGY [facility] Laboratory Receiving [address] [place] [address] * Screening Mammogram 2D Bilateral (08/12/2017 12:00 AM RESIDENTIAL PROGRAM COORDINATOR) Anatomical Region Laterality Modality Breast Bilateral Mammography 08/12/2017 10:2 2 PM RESIDENTIAL PROGRAM COORDINATOR Narrative 08/13/2017 9:05 PM RESIDENTIAL PROGRAM COORDINATOR - SCREENING MAMM BI BILATERAL DIGITAL SCREENING MAMMOGRAM 3D/2D WITH CAD: 08/12/2017 CLINICAL: Routine screening. Patient has no complaints. Comparison is made to exams dated: 08/05/2015, 05/28/2014, and 04/06/2013 [facility]. The tissue of both breasts is heterogeneously dense. This may lower the sensitivity of mammography. Current study was also evaluated with a Computer Aided Detection (CAD) system. No significant masses, calcifications, or other findings are seen in either breast. There has been no significant interval change. IMPRESSION: NEGATIVE There is no mammographic evidence of malignancy. A 1 year screening mammogram is recommended. The patient will be contacted by letter. Katia leach/piero:08/13/2017 10:56:13 letter sent: Normal Exam Mammogram BI-RADS: 1 Negative Radiologist: KATIA RODRIGUEZ Attending: GREGORY TANNER M.D. Requesting: GREGORY TANNER M.D. Requesting Requesting ID: [id number] Attending Attending ID: [id number] Completed Time: 08/12/2017 4:22 PM Dictated Time: N/A Transcribed Time: 08/13/2017 3:04 PM Signed by: KATIA RODRIGUEZ on 08/13/2017 3:04 PM Report To 1 ID: [id number] Report To 1 Name: POLINA HARDY Report To 1 FAX: Report To 2 ID: Report To 2 Name: , Report To 2 FAX: Report To 3 ID: Report To 3 Name: , Report To 3 FAX: NextGen Order #: Procedure Note Miscellaneous, Not In File - 08/13/2017 - SCREENING MAMM BI BILATERAL DIGITAL SCREENING MAMMOGRAM 3D/2D WITH CAD: 08/12/2017 CLINICAL: Routine screening. Patient has no complaints. Comparison is made to exams dated: 08/05/2015, 05/28/2014, and 04/06/2013 [facility]. The tissue of both breasts is heterogeneously dense. This may lower the sensitivity of mammography. Current study was also evaluated with a Computer Aided Detection (CAD) system. No significant masses, calcifications, or other findings are seen in either breast. There has been no significant interval change. IMPRESSION: NEGATIVE There is no mammographic evidence of malignancy. A 1 year screening mammogram is recommended. The patient will be contacted by letter. Katia leach/piero:08/13/2017 10:56:13 letter sent: Normal Exam Mammogram BI-RADS: 1 Negative Radiologist: KATIA RODRIGUEZ Attending: GREGORY TANNER M.D. Requesting: GREGORY TANNER M.D. Requesting Requesting ID: [id number] Attending Attending ID: [id number] Completed Time: 08/12/2017 4:22 PM Dictated Time: N/A Transcribed Time: 08/13/2017 3:04 PM Signed by: KATIA RODRGIUEZ on 08/13/2017 3:04 PM Report To 1 ID: [id number] Report To 1 Name: POLINA HARDY Report To 1 FAX: Report To 2 ID: Report To 2 Name: , Report To 2 FAX: Report To 3 ID: Report To 3 Name: , Report To 3 FAX: NextGen Order #: Gregory Tanner MD IMG MAMMO PROCEDURES Edite d Result - Final from Last 3 Months or Most Recently Relevant to Health Maintenance Insurance [facility] [id number] [facility] [address] [facility] Care Teams Treating Plant 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
--- OUTSIDE RECORDS SUMMARY | 2024-10-16 14:07 | XMS_ITS | Data Portability ---
Author Organization [facility] Address [address] [place] [address] Care Team Providers Care Materials Assistant Name Role Phone PREMA FINE Primary Care Provider Unavailab le Assessment Encounter Date Assessment Date Assessment LastModified by Organization Details LastModified Time 12/01/2023 12/01/2023 mammogram 2023 all normal colonoscopy 2022, all clear good for 10 years. pap smear UTD in [place], [place]. eye exam and dental UTD [email or web address] Not available 12/01/2023 16:31:43 Plan of Treatment Reminders Order Date Submit Date Provider Last Modified By Organization Details Last Modified Time Details Appointments ANY 15 2024 11:30A M LUISITO Correia Not available Not available Not available Lab lipid panel, serum 2023 024 [email or web address], [address], [place], [address], 12/16/2023 16:32:21 CMP, serum or plasma 2023 024 [email or web address], [address], [place], [address], 12/16/2023 16:32:22 CBC w/ auto diff 2023 024 [email or web address], [address], [place], [address], 12/16/2023 16:32:22 HbA1c (hemoglo bin A1c), blood 2023 024 [email or web address], [address], [place], [address], 12/16/2023 16:32:22 Referral None recorded . Procedures None recorded . Surgeries None recorded . Imaging None recorded . Medication Orders None recorded . Patient TargetsNo targets recorded. Patient InstructionsNo instructions recorded. Reason for Referral None Reported. Results Created Date Observation Date Name Description Value Unit Range Abnormal Flag Note LastModifiedBy Organization Detail LastModifiedTime Result Notes None recorded. Problems Name Problem SNOMED Code Status Onset Date Resolution Date Notes Provider Name and Address Organization Details Recorded Time Hypothyroidism 46031387 Active 2023 LUISITO Correia Attn: Lynn zabala,[address] [facility], [place], [address], [facility] 21:51:37 Long-term drug therapy Active 2023 LUISITO Correia Attn: Lynn sagrario,[address] [place], [address], [facility] 4 21:51:38 Problem Notes None recorded. Procedures Surgical History Date Name Laterality Status Provider Name and Address Organization Details Recorded Time Knee Surgery completed Jose Elias Olivares MA [facility] 12/01/2023 16:17:02 Tonsillectomy completed Jose Elias Olivares MA [facility] 12/01/2023 16:17:07 Imaging Results None recorded. Procedure Notes None recorded. Medical Equipment None Reported. Allergies No known drug allergies Medications Name Sig Start Date Stop Date Status Note LastModified by Organization Details LastModified Time t4-t3 e4m 270-44mcg capsules active Not Available Not Available Not Available fluconazole 150 mg tablet TAKE 1 TABLET BY MOUTH EVERY DAY FOR 2 DAYS active Not Available Not Available No t Available spironolact one 100 mg tablet TAKE 1 TABLET BY MOUTH DAILY active Not Available Not Available No t Available phentermine 37.5 mg tablet TAKE 1 TABLET BY MOUTH EVERY DAY 11/30 completed Not Available Not Available Not Available ciprofloxac in 500 mg tablet 11/30 completed Not Available Not Available Not Available erythromyci n 5 mg/gram (0.5 %) eye ointment APPLY 1 CM RIBBON INTO THE LOWER CONJUNCTI EMI SAC(S) IN THE AFFECTED EYE(S) BY OPHTHALMI C ROUTE 3 TIMES PER DAY active Not Available Not Available No t Available pravastatin 20 mg tablet TAKE 1 TABLET BY MOUTH EVERY DAY 11/30 completed Not Available Not Available Not Available hydrocortis one 2.5 % topical ointment APPLY TOPICALLY TO LIPS TWICE DAILY NEEDED 11/30 completed Not Available Not Available Not Available ondansetron 4 mg disintegrat ing tablet DISSOLVE 1 TABLET ON THE TONGUE EVERY 6 HOURS NEEDED 11/30 completed Not Available Not Available Not Available finasteride 5 mg tablet TAKE 1 TABLET BY MOUTH TWICE WEEKLY 11/30 completed Not Available Not Available Not Available progesteron e micronized 100 mg capsule TAKE 1 CAPSULE BY MOUTH IN THE EVENING active Not Available Not Available No t Available amoxicillin 500 mg-potassiu m clavulanate 125 mg tablet TAKE 1 TABLET BY MOUTH EVERY 8 HOURS FOR 7 DAYS active Not Available Not Available No t Available nitrofurant oin monohydrate /macrocryst als 100 mg capsule TAKE 1 CAPSULE BY MOUTH EVERY 12 HOURS FOR 5 DAYS 11/30 completed Not Available Not Available Not Available Vitals Date Recorded Body weight Respiratory rate Body mass index (BMI) Body height Oxygen saturation Oxygen saturation in Arterial blood by Pulse oximetry Heart rate Systolic blood pressure Diastolic blood pressure Provider Name and Address Organization Details Last Updated DateTime 4 13859.1 4 g 20 /min 25.8 kg/m2 162.56 cm 98 % 98 % 100 /min 118 mm[Hg] 82 mm[Hg] Jose Elias Olivares MA [facility] 16:13:55 Social History Question Answer Notes LastModified by Organizat ion Details LastModified Time Tobacco Smoking Status Never Smoker Jose Elias Olivares MA null, [facility] 12/01/2023 16:11:38 Do You Have An Advance Directive? Yes Information n ot available 12/01/2023 What Is Your Level Of Alcohol Consumption? Occasional Information not available 12/01/2023 Are You Blind Or Do You Have Difficulty Seeing? No Information n ot available 12/01/2023 What Is Your Level Of Caffeine Consumption? Moderate Information not available 12/01/2023 In The 14 Days Before Symptom Onset, Have You Had Close Contact With A Laboratory-confirm ed COVID-19 While That Case Was Ill? No Information n ot available 11/30/2023 In The 14 Days Before Symptom Onset, Have You Had Close Contact With A Person Who Is Under Investigation For COVID-19 While That Person Was Ill? No Information not available 11/30/2023 Have You Been To An Area Known To Be High Risk For COVID-19? No Information not available 11/30/2023 Are You Deaf Or Do You Have Serious Difficulty Hearing? No Information not available 12/01/2023 What Type Of Diet Are You Following? REGULAR Information n ot available 12/01/2023 Are There Any Guns Present In Your Home? No Information not available 12/01/2023 What Was The Date Of Your Most Recent Tobacco Screening? 12/01/2023 Information not available 12/01/2023 What Is Your Relationship Status? Information not available 12/01/2023 Do You Use Your Seat Belt Or Car Seat Routinely? Yes Information not available 11/30/2023 Do You Have Smoke And Carbon Monoxide Detectors In Your Home? Yes Information not available 11/30/2023 Do You Use Any Illicit Or Recreational Drugs? No Information not available 12/01/2023 Do You Use Sunscreen Routinely? Yes Information not available 12/01/2023 Has Tobacco Cessation Counseling Been Provided? Yes Information not available 11/30/2023 On What Date Was Tobacco Cessation Counseling Provided? 12/01/2023 Information not available 12/01/2023 Do You Or Have You Ever Used Any Other Forms Of Tobacco Or Nicotine? No Information not available 12/01/2023 Sex: Female Functional Status Question Answer Note LastModified by Organizat ion Details LastModified Time Are you able to care for yourself? Yes Information not available 11/30/2023 What is your exercise level? Occasional Information not available 12/01/2023 Mental Status None recorded. Family History Relationship Description Onset Age of this Age Resolved Age Notes LastModified by Organization Details LastModified Time Mother Coronary arterioscler osis [email or web address] Not available 2023 16:17:29 Mother Heart disease [email or web address] Not available 2023 16:18:03 Mother Hypertensive disorder [email or web address] Not available 2023 16:18:08 Mother Hypercholest erolemia tcarterma Not available 2023 16:18:14 Father Coronary arterioscler osis tcarterma Not available 2023 16:17:29 Father Dementia [email or web address] Not availabl e 12/01/2023 16:17:35 Father Depressive disorder tcarterma Not available 2023 16:17:42 Father Diabetes mellitus [email or web address] Not available 2023 16:17:47 Father Heart disease tcarterma Not available 2023 16:18:03 Father Hypercholest erolemia tcarterma Not available 2023 16:18:14 Sister Coronary arterioscler osis tcarterma Not available 2023 16:17:29 Sister Disorder of thyroid gland tcarterma Not available 2023 16:17:52 Sister Heart disease tcarterma Not available 2023 16:18:03 Medical History Condition Response Coronary Artery Disease N Other N High Blood Pressure N Atrial Fibrillation N Kidney or Bladder Problems N Thyroid Problems Y GI Problems N Depression N COPD N Blood Clots N Skin Problems N Anemia N Heart Attack ([place]) N Anxiety Disorder N Diabetes N Muscle, Joint, or Bone Problems N Seizures/Epilepsy N Acid Reflux (GERD) N Cancer N Stroke N Asthma N Allergies N High Cholesterol N Hepatitis N Liver Disease N Headaches N Heart Failure N Osteoporosis N Gynecological History Statement/Question Response Menses Monthly N Current Control Method Menopause Obstetrics History GPAL:G 0 P 0 0 0 0 Past Encounters Encounter ID Performer Location Encounter Start Date Encounter Closed Date Diagnosis/Indication Diagnosis SNOMED-CT Code Diagnosis ICD10 Code Diagnosis Note [id number] LUISITO Corriea [facility] [address] [place] [address] 12/01/2023 15:55:37 12/01/2023 16:57:46 Adult health examination 295375507 Z00.00 annual wellness completed. Long-term drug therapy 557415775 Z79.899 routine CBC and CMP due. Hypothyroidism 27491617 E03.9 on compounded medication , a little lower dose now she reports. Diabetes m ellitus screening 171106092 Z13.1 a1c annual screening due. Cholesterol screening 27 4648212 Z13.220 fasting lipids are due. Health Concerns Section Related Observation LastModified by Organization Detai ls LastModified Time None Recorded Concern Status LastModified by Organization Details LastModified Time None Recorded Advance Directives Directive Y: Payers Encounter Date Sequence Insurance Name Policy Number Policy Hall Covered Member ID Hall Member ID Guarantor Name 12/01/2023 1 [facility] [id number] Keysha Scanlon [id number] Keysha Scanlon Notes Date Note Type Note Provider Name and Address Organization Details Recorded Time 12/01/2023 text/html ThyroidReported bypatient.Notes:pt is currently taking compounded thyroid supplement from endocrine provider. LUISITO Correia Attn: Accounting[address] [facility], [place], [address], [facility] 03/02/2024 17:48:20 OBGyn Episode No OBEpisode recorded.
--- OUTSIDE RECORDS SUMMARY | 2024-10-16 14:07 | XMS_ITS | Encounter Summary ---
Author Organization [facility] Address 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
--- OUTSIDE RECORDS SUMMARY | 2024-10-16 14:07 | XMS_ITS | Encounter Summary ---
Author Organization [facility] Address [address] [place] [address] Care Team Providers Care Advertising Dispatch Clerks Supervisor Name Role Phone Polina Hardy Primary Care Provider Encounter Details Date Type Department Care Team (Latest Contact Info) Description 08/16/2000 Outpatient Historical [facility] Lb Tanner MD [address] [facility] [address] [place] [address] Unspecified high-risk (Primary Dx) Social History Tobacco Use Types Packs/Day Years Used Date Smoking Tobacco: Never Assessed Comments Unknown Sex and Gender Information Value Date Recorded Sex Assigned at Not on file Legal Sex Female 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
--- OUTSIDE RECORDS SUMMARY | 2024-10-16 14:07 | XMS_ITS | CONTINUITY OF CARE DOCUMENT ---
Author Name ponce serra Address Unknown Organization [facility] Address [address] [place] [address] Phone [phone] Care Team Providers Care Compressor Technician Name Role Phone Fitz Bardales MD Unavailable CHARLA LOMBARDI Unavailable CHARLA LOMBARDI Unavailable PROBLEMS Condition Status Date Provider Notes Family History of Hypertension: completed - Arleen Campbell MD Cardiovascular screening completed - Brian Campbell MD Family history of early CAD active Brian Campbell MD Hypothyroidism active Brian Campbell MD Dyslipidemia active Brian Campbell MD Coronary atherosclerosis active Brian snell MD Elevated Lp(a) active Brian Campbell MD Elevated C-reative protein active Brian chu MD Abnormal labs active Brian Campbell MD Vitamin D deficiency active Brian Campbell MD ENCOUNTERS Date Type Provider Location Encounter Diag nosis - In-person encounter Office Visit [facility] Family History of Hypertension:Cardiovascular screeningCoronary atherosclerosisElevated Lp(a)Elevated C-reative proteinAbnormal labsVitamin D deficiency - In-person encounter Office Visit [facility] Family history of early CADHypothyroidismDyslipidemia VITAL SIGNS Date Observation Value Provider Body Mass Index (Ratio) 29.42 kg/m2 Reggie Campbell MD blood pressure, diastolic 70 mm[Hg] Joseph Christopher blood pressure, systolic 108 mm[Hg] Christianne Christopher oxygen saturation, oximetry 98 % Gabriel Christopher respiratory rate E&M 18 /min Andrés Christopher pulse rate 89 /min Gabriel gutierrez weight E&M 171.4 [lb_av] Gabriel bernabe height E&M 64 [in_i] Gabriel gutierrez Body Mass Index (Ratio) 29.69 kg/m2 Reggie Campbell MD blood pressure, cuff size regular Cr shahzad Butcher blood pressure, diastolic 87 mm[Hg] Cr shahzad Butcher blood pressure, systolic 120 mm[Hg] Cry stal Hadley oxygen saturation, oximetry 98 % Blanca Butcher respiratory rate E&M 17 /min Blanca Butcher pulse rate 93 /min Blanca Cary s blood pressure, resting No Tricia faby Butcher weight E&M 173 [lb_av] Blanca Cary s height E&M 64 [in_i] Blanca buck ALLERGIES No Known Drug Allergies RESULTS Date Observation Value Provider Reference Range Interpretation Location number of large High Density Lipoprotein particles 9.1 umol/L [facility] >=4.8 Large VLDL Particle 2.9 nmol/L [facility] <=2.7 High LDL Size 21.2 nm [facility] >20.5 Small Low Density Lipoprotein Particle 751 nmol/L [facility] <=527 High LDL particle concentration (lipoprotein panel), risk categories correspond to NCEP categories for LDL cholesterol (on a percentile equivalent basis) 1864 nmol/L [facility] <1000 High vitamin D 25-hydroxy, serum 21.4 ng/mL [facility] 30.0-80.0 Low microalbumin/creati nine ratio, urine Undetectable mg/g [facility] <7.5 microalbumin/total urine volume <3.0 mg/L [facility] creatinine, random, urine 132.5 mg/dL [facility] 20.0-300.0 insulin, serum 5.0 u[IU]/mL [facility] 1.0-24.0 C-reactive protein, by highly sensitive test 1.8 mg/L [facility] <1.0 High eGFR if 127 mL/min/{1.73_m 2} [facility] >60 eGFR if not 110 mL/min/{1.73_m 2} [facility] >60 bilirubin, serum, total 0.5 mg/dL [facility] <1.3 aspartate aminotransferase (SGOT), serum 16 1/L [facility] <41 alanine aminotransferase (SGPT), serum 12 1/L [facility] <46 globulin, serum 2.5 [facility] 1.8-3.8 protein, total, serum 6.6 g/dL [facility] 6.1-8.0 albumin, serum 4.1 g/dL [facility] 3.5-5.5 creatinine, serum 0.57 mg/dL [facility] 0.55-1.00 urea nitrogen, blood 12 mg/dL [facility] 8-23 carbon dioxide, serum, total 25 mmol/L [facility] 21-33 chloride, serum 104 mmol/L [facility] 95-108 potassium, serum 4.6 mmol/L [facility] 3.5-5.1 sodium, serum 139 mmol/L [facility] [id number] 8430/03 /13 calcium, serum 9.3 mg/dL [facility] 8.5-10.5 blood glucose 93 mg/dL [facility] 65-99 HISTORY OF MEDICATION USE Medication Status Instructions Dates Provider Indications Com ments PRAVASTATIN SODIUM 10 MG ORAL TABLET active one tab daily Brian Campbell MD FISH OIL 1200 MG ORAL CAPSULE active ONE DAILY Gabriel Christopher ARMOUR THYROID 90 MG ORAL TABLET active 1 tab once daily Gabriel Carpenterenson FLUOXETINE HCL 10 MG ORAL CAPSULE active ONE TAB. DAILY Gabriel Christopher SOCIAL HISTORY Date Observation Value Provider social history E&M S moking History: Primitivo aponte has never smoked. Brian Campbell MD social history reviewed E&M revi ewed - no changes required Brian Campbell MD smoking status Never smoker Gabriel Neil bhakta number of grandchildren Brian Campbell MD social history reviewed E&M revi ewed - no changes required Brian Campbell MD social history E&M S moking History: Primitivo aponte has never smoked. Brian Campbell MD smoking status Never smoker Blanca Noriega ams FAMILY HISTORY Family Member Condition Mother Family History of Hy pertension: Mother Family History of Ar thritis: INSURANCE PROVIDERS Payer name Policy type / Coverage type [place] red green party ID [facility] [id number] Other [id number] ADVANCE DIRECTIVES Name Date LIVING WILL ON FILE TREATMENT PLAN Date Name Performer Cardiology: luci arita 21.4. optimal level 50-60. Recommend D-Minder Camila to track Vitamin D exposure. Recommend Vitamin D3 5000 IUs daily. Brian Campbell MD Cardiology: e levated TMAO. pt is not taking any supplemental carnitine. recommen doptimizing vitamin D status. if level remains elevated, will do round of probiotics. Brian Campbell MD Cardiology: n ew diagnosis. level 1.8. d ouble omega 3 intake and start statin Brian Campbell MD Cardiology: n ew diagnosis. level 91. g oal of treatment is LDLp <1000. double omega 3 intake. start low dose statin. Brian Campbell MD Cardiology: n ew diagnosis. CT Coronary Calcium Score 21, Brian Campbell MD Cardiology: C T Coronary Calcium Score 21, mild risk. C ont omega3 R ecommend Vitamin K2 180mcg daily for plaque stabilization. R ecommend pravastatin Brian Campbell MD Cardiology: o xidized LDL 72, LDL particle #1894, small LDL 751 W orking on weight loss. W ith elevated CT Coronary Calcium Score recommend low dose statin. Start pravastatin 10mg daily. Optimize vit d status to lessen risk of mylagias A po E 09/25 Brian Campbell MD Cardiology: R ecommend CT Coronary Calcium Score given strong FMHx. early CAD in multiple family members. C heck LP(a) and APO E genotype. Brian Campbell MD Cardiology: R ecommend [facility] panel with lipid particle testing and inflammation markers. N o previous therapies. W orking on weight loss. Brian Campbell MD Date Name CT, Coronary Calcium Score HISTORY OF PROCEDURES Procedure Date Procedure Name Provider Procedure Notes S elbaus CT- Coronary CA score Brian Campbell MD completed EKG Brian Campbell MD complet ed
--- OUTSIDE RECORDS SUMMARY | 2024-10-16 14:07 | XMS_ITS | Referral Summary ---
Author Organization [facility] HealthCare Care Team Providers Care Jewel Bearing Maker Name Role Phone Duarte Fineronni JORGE Primary Care Pr ovider Young STRONG MD, Moody Phillip Unavailable [phone] Shruti Foote MD Unavailable [phone] Allergies No known active allergies Medications [...] & Plan (12/05/2019 2:44 PM CDT): Ms Ross is a healthy 49yo female with right [...] & Plan (11/22/2019 4:36 PM CDT): Ms Ross is a healthy 49yo female with PMH [...] Free, Intramuscular 05/11/2018 MMR 02/11/1995 Tdap 05/11/2018 Social History Tobacco Use Types Packs/Day Years Used Date Smoking Tobacco: Never Tobacco Cessation:Counseling Given: Not Answered Alcohol Use Standard Drinks/Week Comments Yes 0 (1 standard drink = 0.6 oz pur e alcohol) Comments Unknown Sex and Gender Information Value Date Recorded Sex Assigned at Not on file Legal Sex Female 12:27 AM OIL TANK CAR CLEANER Gender Identity Not on file Sexual Orientation Not on file 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 Not on file Not on file Not on fi le Last Filed Vital Signs Vital Sign Reading Time Taken Comments Blood Pressure 120/76 01/26/2024 11:05 AM CDT Pulse 105 08/12/2022 8:32 AM OIL TANK CAR CLEANER Temperature 37.2 C (99 F) 12/05/2019 1:42 PM CDT Respiratory Rate - - Oxygen Saturation 98% 08/12/2022 8:32 AM OIL TANK CAR CLEANER Inhaled Oxygen Concentration - - Weight 67.6 kg (149 lb) 01/26/2024 11:05 AM CDT Height 162.6 cm (5' 4 ) 01/26/2024 11:05 AM CDT Body Mass Index 25.58 01/26/2024 11:05 AM CDT Plan of Treatment Not on file Procedures Procedure Name Priority Date/Time Associated Diagnosis Comments PAP AND HIGH RISK HPV, REFLEX TO GENOTYPING Routine 01/26/2024 12:19 PM CDT Screening for malignant neoplasm of the cervix Special screening examination for human papillomavirus (HPV) SCREENING MAMMOGRAM 2D BILATERAL Routine 08/12/2017 12:00 AM OIL TANK CAR CLEANER from Last 3 Months or Most Recently Relevant to Health Maintenance Results * Pap and High Risk HPV and Genotyping (Cytology Component) (01/26/2024 12:19 PM CDT) Endocervical (Pap test) 01/26/2024 12:19 PM CDT 01/28/2024 10:49 AM CDT Narrative PATHOLOGY [facility] - 2024 9:48 AM CDT EPIC results best viewed via link to PDF [address] [address] Tele: Annabelle Schumacher MD - Senior Staff Psychologist CYTOLOGY REPORT Note to Patients: This report [...] and explain the details. Patient Name: KEYSHA ROSS Address: [address] [place] [address] Gender: F : 1970 (Age: 53) Service: Location: [facility] : [id number] [facility] #: [id number] Patient Type: [facility] SPECIMEN Taken: 01/26/2024 Reported: 2024 Physician(s): China Mora M.D. FINAL DIAGNOSIS: SOURCE OF SPECIMEN - ThinPrep Pap and HPV w/ reflex Genotyping: STATEMENT OF ADEQUACY Source: Cervical/Endocervical - Satisfactory for interpretation - Endocervical /Transformation Zone component present - Case screened using computer assisted imaging technology GENERAL CATEGORIZATION: - Negative for intraepithelial lesion or malignancy jxm/02/01/2024 09:48JAHAIRA Peterson (ASCP) Report Reviewed and Electronically Signed [...] recommended by your physician or nurse practitioner. China Mora MD LAB CYTOLOGY ORDERABLES Fin al Result PATHOLOGY [facility] Laboratory Receiving [address] [place] [address] * Screening Mammogram 2D Bilateral (08/12/2017 12:00 AM OIL TANK CAR CLEANER) Anatomical Region Laterality Modality Breast Bilateral Mammography 08/12/2017 10:2 2 PM OIL TANK CAR CLEANER Narrative 08/13/2017 9:05 PM OIL TANK CAR CLEANER - SCREENING MAMM BI BILATERAL DIGITAL SCREENING MAMMOGRAM 3D/2D WITH CAD: 08/12/2017 CLINICAL: Routine screening. Patient has no complaints. Comparison is made to exams dated: 08/05/2015, 05/28/2014, and 04/06/2013 [facility]. The tissue of both breasts is heterogeneously [...] patient will be contacted by letter. Katia leach/penrad:08/13/2017 10:56:13 letter sent: Normal Exam Mammogram BI-RADS: 1 Negative Radiologist: KATIA RODRIGUEZ Attending: GREGORY TANNER M.D. Requesting: GREGORY TANNER M.D. Requesting Requesting ID: [id number] Attending Attending ID: [id number] Completed Time: 08/12/2017 4:22 PM Dictated Time: N/A Transcribed Time: 08/13/2017 3:04 PM Signed by: KATIA RODRIGUEZ on 08/13/2017 3:04 PM Report To 1 ID: [id number] Report To 1 Name: POLINA FINE Report To 1 FAX: Report To 2 [...] to exams dated: 08/05/2015, 05/28/2014, and 04/06/2013 [facility]. The tissue of both breasts is heterogeneously [...] patient will be contacted by letter. Katia leach/penrad:08/13/2017 10:56:13 letter sent: Normal Exam Mammogram BI-RADS: 1 Negative Radiologist: KATIA RODRIGUEZ Attending: GREGORY TANNER M.D. Requesting: GREGORY TANNER M.D. Requesting Requesting ID: [id number] Attending Attending ID: [id number] Completed Time: 08/12/2017 4:22 PM Dictated Time: N/A Transcribed Time: 08/13/2017 3:04 PM Signed by: KATIA RODRIGUEZ on 08/13/2017 3:04 PM Report To 1 ID: [id number] Report To 1 Name: POLINA FINE Report To 1 FAX: Report To 2 ID: Report To 2 Name: , Report To 2 FAX: Report To 3 ID: Report To 3 Name: , Report To 3 FAX: NextGen Order #: Gregory Tanner MD IMG MAMMO PROCEDURES Edite d Result - Final from Last 3 Months or Most Recently Relevant to Health Maintenance Insurance [facility]PPO Address: [place] [address] [facility] [employer]O Address: [address] [place] [address] [facility] [employer]O Address: [address] [place] [address] [facility] [employer] [facility]O Address: [address] [place] [address] Care Teams Jewel Bearing Maker Relationship Specialty Start Date End Date Polina Fine PA PCP - General 01/29/17 Moody Vidal III, MD [address] [facility] [address] [place] [address] Consulting Physician Rheumatology 11/14/19 Shruti Foote MD [address] [place] [address] Referring Physician Track Repair Person 11/22/19
--- OUTSIDE RECORDS SUMMARY | 2024-10-16 14:07 | XMS_ITS ---
Author Organization [facility]wa Address [address] [facility] [address] [place] [address] Care Team Providers Care Airways Operations Specialist Name Role Phone zzzzMigration, zzzzProvider Unavailable Unav ailable REASON FOR VISIT EMR-Tom Encounters Encounter Location Date Provider Diagnosis [facility] [address] [facility] [address] [place] [address] 05/15/2023 zzzzProvider zzzzMigration Plan Of Treatment No Information Progress Notes * Keysha ROSS FDOB: [birth year] (54 yo F)Acc No.[id number]:05/15/2023 Patient: Keysha CARRILLO :1970 A ge:53 Y S ex:Female Phone: Address:[address] [place] [address], [place], [address] Subjective: * Chief Complaints: * E MR-Tom * Medical History: * Surgical History: * Hospitalization/Major Diagno stic Procedure: * Medications: Objective: * Vitals: * Physical Examination: Assessment: Plan: * Treatment: * Procedure Codes: * true * Date: Generated for Printi ng/Faxing/eTransmitting on: 0 10/16/2024 02:06 PM CDT
--- OUTSIDE RECORDS SUMMARY | 2024-10-16 14:08 | XMS_ITS | Clinical Summary ---
Author Organization [facility] Address [address] [place] [address] Care Team Providers Care Semiautomatic Stitcher Operator Name Role Phone Unavailable Primary Care Provider Unavailabl e Source Comments [facility],non-owned Affiliates and Associated Physician Practices is amultiple site organization consisting of ambulatory clinics and hospital sitesin [place], [place], [place] and [place]. This disclosure is being madepursuant to the Care Everywhere program and may not contain all information available regarding this patient. Last updated 18.[facility] i4.ms Social History Tobacco Use Types Packs/Day Years Used Date Smoking Tobacco: Never Assessed Sex and Gender Information Value Date Recorded Sex Assigned at Not on file Gender Identity Not on file Sexual Orientation Not on file Plan of Treatment Health Maintenance Due Date Last Done Comments COLOGUARD (AGES 45-75) - COL ON CA SCREENING 1970 COLON MONITORING 1971 COLONOSCOPY - COLON CA SCREENING 1971 CT COLONOGRAPHY - COLON CA SCREENING 1970 Colorectal Cancer Screening 1970 FIT - COLON CA SCREENING 1971 FLEX SIG - COLON CA SCREENING 1971 LIPID TESTING 1970 MAMMOGRAM 1970 PAP SMEAR 1971 HIV SCREENING 1986 HEPATITIS C SCREENING 01/27/1989 DTAP/TDAP/TD VACCINES (1 - Tdap) 1990 HEPATITIS B VACCINE (1 of 3 - 19+ 3-dose series) 1990 PNEUMOCOCCAL VACCINE 50+ (1 of 1 - PCV) 2021 ZOSTER VACCINE (1 of 2) 2021 COVID-19 VACCINE ( - 2023-2 5 season) 2024 INFLUENZA VACCINE (#1) 2024 DEPRESSION SCREENING 07/26/2024 HIB VACCINE Aged Out No longer eligi ble based on patient's age to complete this topic HPV VACCINE Aged Out No longer eligi ble based on patient's age to complete this topic MENINGOCOCCAL (Group B) VACC INE SHARED DECISION-MAKING Aged Out No longer eligibl e based on patient's age to complete this topic MENINGOCOCCAL GROUPS A/C/Y/W VACCINE Aged Out No longer eligible b ased on patient's age to complete this topic PNEUMOCOCCAL VACCINE Aged Out No long er eligible based on patient's age to complete this topic
--- OUTSIDE RECORDS SUMMARY | 2024-10-16 14:08 | XMS_ITS | Data Portability ---
Author Organization [facility] official[facility]fm, Main Office Address [address] [place] [address] Assessment No assessment recorded. Plan of Treatment Reminders Order Date Submit Date Provider Last Modified By Organization Details Last Modified Time Details Appointments None record ed. Lab None record ed. Referral None record ed. Procedures None record ed. Surgeries None record ed. Imaging None record ed. Medication Orders None record ed. Patient TargetsNo targets recorded. Patient InstructionsNo instructions recorded. Reason for Referral None Reported. Results Created Date Observation Date Name Description Value Unit Range Abnormal Flag Note LastModifiedBy Organization Detail LastModifiedTime 10/02/1910/02/2020 T3, free, serum or plasm a triiodothyro nine (T3), free 3.5 pg/mL 2.0-4. 4 Not Available [facility] ([facility]) [address] [facility], [place], [address], 10/02/2020 08:19:12 10/02/1910/02/2020 HbA1c (hemo globi n A1c), blood hemoglobin A1C 5.3 % 4.8-5. 6 Predi abete s: 5.7 - 6.4 Diabe marie: >6.4 Glyce vivian contr ol for adult s with diabe marie: <7.0 Not Available [facility] ([facility]) [address] [facility], [place], [address], 10/02/2020 08:19:12 10/02/1910/02/2020 lipid panel , serum HDL cholesterol 81 mg/dL >39 Not Available [facility]) [address] [facility], [place], [address], 10/02/2020 08:19:11 10/02/19 21 10/02/2020 lipid panel , serum cholesterol, total 209 mg/dL 100-19 9 above high normal Not Available [facility] ([facility]) [address] [place], [address], 10/02/2020 08:19:11 10/02/19 21 10/02/2020 lipid panel , serum triglyceride s 117 mg/dL 0-149 Not Available [facility] ([facility]) [address] [place], [address], 10/02/2020 08:19:11 10/02/19 21 10/02/2020 lipid panel , serum VLDL cholesterol alan 20 mg/dL 5-40 Not Available [facility] ([facility]) [address] [place], [address], 10/02/2020 08:19:11 10/02/19 21 10/02/2020 lipid panel , serum LDL chol calc ([facility]) 108 mg/dL 0-99 above high normal Not Available [facility] ([facility]) [address] [place], [address], 10/02/2020 08:19:11 10/02/19 21 10/02/2020 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 chol/HDL ratio 2.6 ratio 0.0-4. 4 T. Chol/ HDL Ratio Men Women 1/2 Avg.R isk 3.4 3.3 Avg.R isk 5.0 4.4 2X Avg.R isk 9.6 7.1 3X Avg.R isk 23.4 11.0 Not Available [facility] ([facility]) [address] [place], [address], 10/02/2020 08:19:11 10/02/19 21 10/02/2020 CMP, serum or plasm a glucose 92 mg/dL 65-99 Not Available [facility] ([facility]) [address] [place], [address], 10/02/2020 08:19:11 10/02/19 21 10/02/2020 CMP, serum or plasm a BUN 14 mg/dL 6-24 Not Available [facility] ([facility]) [address] [place], [address], 10/02/2020 08:19:11 10/02/19 21 10/02/2020 CMP, serum or plasm a creatinine 0.60 mg/dL 0.57-1 .00 Not Available [facility] ([facility]) [address] [place], [address], 10/02/2020 08:19:11 10/02/19 21 10/02/2020 CMP, serum or plasm a eGFR if nonafricn AM 107 mL/mi n/1.7 3 >59 Not Available [facility] ([facility]) [address] [place], [address], 10/02/2020 08:19:11 10/02/19 21 10/02/2020 CMP, serum or plasm a eGFR if africn AM 124 mL/mi n/1.7 3 >59 Not Available [facility] ([facility]) [address] [place], [address], 10/02/2020 08:19:11 10/02/19 21 10/02/2020 CMP, serum or plasm a BUN/creatini ne ratio 23 9-23 Not Available [facility] ([facility]) [address] [place], [address], 10/02/2020 08:19:11 10/02/19 21 10/02/2020 CMP, serum or plasm a sodium 139 mmol/ L 134-14 4 Not Available [facility] ([facility]) [address] [place], [address], 10/02/2020 08:19:11 10/02/1910/02/2020 CMP, serum or plasm a potassium 4.7 mmol/ L 3.5-5. 2 Not Available [facility] ([facility]) [address] [place], [address], 10/02/2020 08:19:11 10/02/1910/02/2020 CMP, serum or plasm a chloride 103 mmol/ L 96-106 Not Available [facility] ([facility]) [address] [place], [address], 10/02/2020 08:19:11 10/02/1910/02/2020 CMP, serum or plasm a carbon dioxide, total 21 mmol/ L 20-29 Not Available [facility] ([facility]) [address] [place], [address], 10/02/2020 08:19:11 10/02/1910/02/2020 CMP, serum or plasm a calcium 9.3 mg/dL 8.7-10 .2 Not Available [facility] ([facility]) [address] [place], [address], 10/02/2020 08:19:11 10/02/1910/02/2020 CMP, serum or plasm a protein, total 6.8 g/dL 6.0-8. 5 Not Available [facility] ([facility]) [address] [place], [address], 10/02/2020 08:19:11 10/02/1910/02/2020 CMP, serum or plasm a albumin 4.0 g/dL 3.8-4. 8 Not Available [facility] ([facility]) [address] [place], [address], 10/02/2020 08:19:11 10/02/19 21 10/02/2020 CMP, serum or plasm a globulin, total 2.8 g/dL 1.5-4. 5 Not Available [facility] ([facility]) [address] [place], [address], 10/02/2020 08:19:11 10/02/19 21 10/02/2020 CMP, serum or plasm a A/G ratio 1.4 1.2-2. 2 Not Available [facility] ([facility]) [address] [place], [address], 10/02/2020 08:19:11 10/02/19 21 10/02/2020 CMP, serum or plasm a bilirubin, total 0.4 mg/dL 0.0-1. 2 Not Available [facility] ([facility]) [address] [place], [address], 10/02/2020 08:19:11 10/02/19 21 10/02/2020 CMP, serum or plasm a alkaline phosphatase 60 IU/L 39-117 Not Available [facility] ([facility]) [address] [place], [address], 10/02/2020 08:19:11 10/02/19 21 10/02/2020 CMP, serum or plasm a AST (SGOT) 17 IU/L 0-40 Not Available [facility] ([facility]) [address] [place], [address], 10/02/2020 08:19:11 10/02/19 21 10/02/2020 CMP, serum or plasm a ALT (SGPT) 16 IU/L 0-32 Not Available [facility] ([facility]) [address] [place], [address], 10/02/2020 08:19:11 10/02/19 21 10/02/2020 CBC w/ auto diff WBC 6.5 x10e3 /uL 3.4-10 .8 Not Available [facility] ([facility]) [address] [facility], [place], [address], 10/02/2020 08:19:10 10/02/19 21 10/02/2020 CBC w/ auto diff RBC 4.61 x10e6 /uL 3.77-5 .28 Not Available [facility] ([facility]) [address] [facility], [place], [address], 10/02/2020 08:19:10 10/02/19 21 10/02/2020 CBC w/ auto diff hemoglobin 13.3 g/dL 11.1-1 5.9 Not Available [facility] ([facility]) [address] [facility], [place], [address], 10/02/2020 08:19:10 10/02/19 21 10/02/2020 CBC w/ auto diff hematocrit 40.6 % 34.0-4 6.6 Not Available [facility] ([facility]) [address] [facility], [place], [address], 10/02/2020 08:19:10 10/02/19 21 10/02/2020 CBC w/ auto diff MCV 88 fL 79-97 Not Available [facility] ([facility]) [address] [facility], [place], [address], 10/02/2020 08:19:10 10/02/19 21 10/02/2020 CBC w/ auto diff MCH 28.9 pg 26.6-3 3.0 Not Available [facility] ([facility]) [address] [place], [address], 10/02/2020 08:19:10 10/02/19 21 10/02/2020 CBC w/ auto diff MCHC 32.8 g/dL 31.5-3 5.7 Not Available [facility] ([facility]) [address] [place], [address], 10/02/2020 08:19:10 10/02/19 21 10/02/2020 CBC w/ auto diff RDW 12.9 % 11.7-1 5.4 Not Available [facility] ([facility]) [address] [facility], [place], [address], 10/02/2020 08:19:10 10/02/19 21 10/02/2020 CBC w/ auto diff platelets 289 x10e3 /uL 150-45 0 Not Available [facility] ([facility]) [address] [facility], [place], [address], 10/02/2020 08:19:10 10/02/19 21 10/02/2020 CBC w/ auto diff neutrophils 50 % not estab. Not Available [facility] ([facility]) [address] [facility], [place], [address], 10/02/2020 08:19:10 10/02/19 21 10/02/2020 CBC w/ auto diff lymphs 40 % not estab. Not Available [facility] ([facility]) [address] [facility], [place], [address], 10/02/2020 08:19:10 10/02/19 21 10/02/2020 CBC w/ auto diff monocytes 7 % not estab. Not Available [facility] ([facility]) [address] [facility], [place], [address], 10/02/2020 08:19:10 10/02/19 21 10/02/2020 CBC w/ auto diff eos 2 % not estab. Not Available [facility] ([facility]) [address] [facility], [place], [address], 10/02/2020 08:19:10 10/02/19 21 10/02/2020 CBC w/ auto diff basos 1 % not estab. 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 0 Not Available [facility] ([facility]) [address] [facility], [place], [address], 10/02/2020 08:19:10 10/02/19 21 10/02/2020 CBC w/ auto diff lymphs (absolute) 2.6 x10e3 /uL 0.7-3. 1 Not Available [facility] ([facility]) [address] [facility], [place], [address], 10/02/2020 08:19:10 10/02/19 21 10/02/2020 CBC w/ auto diff monocytes(ab solute) 0.5 x10e3 /uL 0.1-0. 9 Not Available [facility] ([facility]) [address] [facility], [place], [address], 10/02/2020 08:19:10 10/02/19 21 10/02/2020 CBC w/ auto diff eos (absolute) 0.1 x10e3 /uL 0.0-0. 4 Not Available [facility] ([facility]) [address] [place], [address], 10/02/2020 08:19:10 10/02/19 21 10/02/2020 CBC w/ auto diff baso (absolute) 0.0 x10e3 /uL 0.0-0. 2 Not Available [facility] ([facility]) [address] [facility], [place], [address], 10/02/2020 08:19:10 10/02/19 21 10/02/2020 CBC w/ auto diff immature granulocytes 0 % not estab. Not Available [facility] ([facility]) [address] [place], [address], 10/02/2020 08:19:10 10/02/19 21 10/02/2020 CBC w/ auto diff immature grans (abs) 0.0 x10e3 /uL 0.0-0. 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 Not Available [facility] ([facility]) [address] [place], [address], 10/02/2020 08:19:10 10/02/1910/02/2020 TSH + free T4, serum TSH 0.007 uIU/m L 0.450- 4.500 below low normal Not Available [facility] ([facility]) [address] [place], [address], 10/02/2020 08:19:10 10/02/1910/02/2020 TSH + free T4, serum T4,free(dire ct) 1.28 NG/dL 0.82-1 .77 Not Available [facility] ([facility]) [address] [place], [address], 10/02/2020 08:19:10 10/02/1910/02/2020 urina lysis , dipst ick, refle x micro specific gravity 1.021 1.005- 1.030 Not Available [facility] ([facility]) [address] [place], [address], 10/02/2020 08:19:09 10/02/19 21 10/02/2020 urina lysis , dipst ick, refle x micro pH 5.5 5.0-7. 5 Not Available [facility] ([facility]) [address] [facility], [place], [address], 10/02/2020 08:19:09 10/02/19 21 10/02/2020 urina lysis , dipst ick, refle x micro urine-color yellow yellow Not Available [facility] ([facility]) [address] [facility], [place], [address], 10/02/2020 08:19:09 10/02/19 21 10/02/2020 urina lysis , dipst ick, refle x micro appearance clear clear Not Available [facility] ([facility]) [address] [facility], [place], [address], 10/02/2020 08:19:09 10/02/19 21 10/02/2020 urina lysis , dipst ick, refle x micro WBC esterase negati ve negati ve Not Available [facility] ([facility]) [address] [facility], [place], [address], 10/02/2020 08:19:09 10/02/1910/02/2020 urina lysis , dipst ick, refle x micro protein negati ve negati ve/tra ce Not Available [facility] ([facility]) [address] [facility], [place], [address], 10/02/2020 08:19:09 10/02/1910/02/2020 urina lysis , dipst ick, refle x micro glucose negati ve negati ve Not Available [facility] ([facility]) [address] [facility], [place], [address], 10/02/2020 08:19:09 10/02/1910/02/2020 urina lysis , dipst ick, refle x micro ketones negati ve negati ve Not Available [facility] ([facility]) [address] [facility], [place], [address], 10/02/2020 08:19:09 10/02/19 21 10/02/2020 urina lysis , dipst ick, refle x micro occult blood negati ve negati ve Not Available [facility] ([facility]) [address] [facility], [place], [address], 10/02/2020 08:19:09 10/02/1910/02/2020 urina lysis , dipst ick, refle x micro bilirubin negati ve negati ve Not Available [facility] ([facility]) [address] [facility], [place], [address], 10/02/2020 08:19:09 10/02/1910/02/2020 urina lysis , dipst ick, refle x micro urobilinogen ,semi-qn 0.2 mg/dL 0.2-1. 0 Not Available [facility] ([facility]) [address] [facility], [place], [address], 10/02/2020 08:19:09 10/02/1910/02/2020 urina lysis , dipst ick, refle x micro nitrite, urine negati ve negati ve Not Available [facility] ([facility]) [address] [place], [address], 10/02/2020 08:19:09 10/02/1910/02/2020 urina lysis , dipst ick, refle x micro microscopic examination commen t Micro scopi c not indic ated and not perfo rmed. Not Available [facility] ([facility]) [address] [place], [address], 10/02/2020 08:19:09 01/16/20 22 01/16/2022 LIPID PANEL WITH LDL/H DL RATIO LDL/HDL ratio 2.1 ratio 0.0-3. 2 LDL/H DL Ratio Men Women 1/2 Avg.R isk 1.0 1.5 Avg.R isk 3.6 3.2 2X Avg.R isk 6.2 5.0 3X Avg.R isk 8.0 6.1 Not Available [facility] ([facility]) [address] [place], [address], 01/16/2022 05:09:25 01/16/20 22 01/16/2022 LIPID PANEL WITH LDL/H DL RATIO cholesterol, total 299 mg/dL 100-19 9 above high normal Not Available [facility] ([facility]) [address] [place], [address], 01/16/2022 05:09:25 01/16/20 22 01/16/2022 LIPID PANEL WITH LDL/H DL RATIO triglyceride s 166 mg/dL 0-149 above high normal Not Available [facility] ([facility]) [address] [place], [address], 01/16/2022 05:09:25 01/16/20 22 01/16/2022 LIPID PANEL WITH LDL/H DL RATIO HDL cholesterol 87 mg/dL >39 Not Available [facility] ([facility]) [address] [place], [address], 01/16/2022 05:09:25 01/16/20 22 01/16/2022 LIPID PANEL WITH LDL/H DL RATIO VLDL cholesterol alan 30 mg/dL 5-40 Not Available [facility] ([facility]) [address] [place], [address], 01/16/2022 05:09:25 01/16/20 22 01/16/2022 LIPID PANEL WITH LDL/H DL RATIO LDL chol calc ([facility]) 182 mg/dL 0-99 above high normal Not Available [facility] ([facility]) [address] [facility], [place], [address], 01/16/2022 05:09:25 01/16/20 22 01/16/2022 LIPID PANEL WITH LDL/H DL 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 [id number] Not Available 09/23/2022 03:04:27 11/06/19 21 12/20/2019 MRI, knee, w/o contr ast No observ ation record ed. [id number] Not Available 09/23/2022 03:04:27 04/08/20 21 03/26/2021 XR, ankle , 2 view No observ ation record ed. [id number] [address], [place], [address], 09/23/2022 03:04:27 04/23/20 22 04/22/2022 CT, abdom en + pelvi s, w/ contr ast No observ ation record ed. [id number] [facility] [address], [place], [address], 09/23/2022 03:04:27 10/22/19 23 10/15/2022 colon oscop y scree autumn (PROC ) No observ ation record ed. [email or web address] [facility] [address] [place], [address], 10/22/2022 15:40:22 12/05/19 23 12/03/2022 XR, knee No observ ation record ed. [email or web address] [facility] [address], [place], [address], 12/08/2022 11:28:07 Result Notes None recorded. Problems Name Problem SNOMED Code Status Onset Date Resolution Date Notes Provider Name and Address Organization Details Recorded Time Body mass index 25-29 - overweight 289760154 Active Not Available [facility] 3 02:55:25 Blood glucose outside reference range 919537154 Active Not Available [facility] 3 02:55:25 Mixed hyperlipid emia 253311148 Active 2021 Not Available [facility] 3 02:55:25 Low back pain 567333138 Active Not Available [facility] 3 02:55:25 Left upper quadrant pain 192709472 Active 2021 Not Available [facility] 3 02:55:25 Vitamin D deficiency 21127529 Active Not Available [facility] 3 02:55:25 Hypothyroi dism 28333550 Active Not Available Count includes the [facility] 3 02:55:25 Calcificat ion of coronary artery 102494888 Active 2021 Not Available [facility] 3 02:55:25 Hyperlipid emia 21754069 Active 2019 Not Available [facility] 3 02:55:25 Urinary tract infectious disease 01545238 Active Not Available [facility] 3 02:55:25 Weight gain 9544711 Active 2021 Not Available [facility] 3 02:55:25 Acute urinary tract infection 340444775 Active 2022 ENDY Alvarado null, [place] - S [facility] 3 10:22:31 Pain of right knee joint 2192552034532 00 Active 2022 LUISITO Correia [address] [facility], [facility] [address], [place], [address] , [facility] [employer] 3 14:52:06 Problem Notes None recorded. Procedures Surgical History Date Name Laterality Status Provider Name and Address Organization Details Recorded Time Orthopedic Surgery completed Not Available Count includes the [facility] 09/23/2022 02:48:31 Imaging Results Imaging Date Name Status LastModified by Organiz ation Details LastModified Time 11/28/2019 XR, knee, 3 view completed [id number] Information not available 09/23/2022 03:04:27 12/20/2019 MRI, knee, w/o contrast completed [id number] Information not available 09/23/2022 03:04:27 03/26/2021 XR, ankle, 2 view completed [id number] [facility] [address], [place], [address], 09/23/2022 03:04:27 04/22/2022 CT, abdomen + pelvis, w/ contrast completed [id number] [facility] [address], [place], [address], 09/23/2022 03:04:27 10/15/2022 colonoscopy screening (PROC) completed [address] [place], [address], 10/22/2022 15:40:22 12/03/2022 XR, knee completed [email or web address] [facility] [address], [place], [address], 12/08/2022 11:28:07 Procedure Notes None recorded. Medical Equipment None Reported. Allergies No known drug allergies Medications Name Sig Start Date Stop Date Status Note LastModified by Organization Details LastModified Time t4-t3 e4m 270-44mcg capsules active Not Available Not Available Not Available cyclobenza moon 10 mg tablet Take 1 tablet every day by oral route at bedtime. active Not Available Not Available No t Available atorvastat in 20 mg tablet TAKE 1 TABLET BY MOUTH EVERY DAY AT BEDTIME active Not Available Not Available No t Available azithromyc in 250 mg tablet TAKE 2 TABLETS (500 MG) BY ORAL ROUTE ONCE DAILY FOR 1 DAY THEN 1 TABLET (250 MG) BY ORAL ROUTE ONCE DAILY FOR 4 DAYS active Not Available Not Available No t Available hydrocodon e 5 mg-acetami nophen 325 mg tablet 10/11 completed Not Available Not Available Not Available meloxicam 15 mg tablet TAKE 1 TABLET BY MOUTH EVERY DAY WITH FOOD 04/13 completed Not Available Not Available Not Available spironolac tone 100 mg tablet active Not Available Not Available No t Available penicillin V potassium 500 mg tablet 10/12 completed Not Available Not Available Not Available topiramate 25 mg tablet 09/04 completed Not Available Not Available Not Available phentermin e 37.5 mg tablet TAKE 1 TABLET BY MOUTH EVERY DAY active Not Available Not Available No t Available acetaminop hen 300 mg-codeine 30 mg tablet TAKE 1 TABLET BY MOUTH EVERY 6 HOURS NEEDED active Not Available Not Available No t Available ciprofloxa alessia 500 mg tablet TK 1 T PO Q 12 hours as directed for traveler' s diarrhea illness 06/25 completed Not Available Not Available Not Available sulfametho xazole 800 mg-trimeth oprim 160 mg tablet Take 1 tablet every 12 hours by oral route. 10/12 completed Not Available Not Available Not Available tramadol 50 mg tablet TAKE 1 TABLET BY MOUTH EVERY 6 HOURS NEEDED 01/07 completed Not Available Not Available Not Available amoxicilli n 875 mg tablet Take 1 tablet every 12 hours by oral route. active Not Available Not Available No t Available pravastati n 10 mg tablet TAKE 1 TABLET BY MOUTH DAILY 04/13 completed Not Available Not Available Not Available tobramycin 0.3 % eye drops INSTILL 1 DROP INTO AFFECTED EYE(S) BY OPHTHALMI C ROUTE EVERY 4 HOURS active Not Available Not Available No t Available olopatadin e 0.1 % eye drops 10/12 completed Not Available Not Available Not Available fluoxetine 10 mg capsule TK 1 C PO QD 09/04 completed Not Available Not Available Not Available nitroglyce rin 0.4 mg sublingual tablet take one tablet SL at onset of chest pain, may repeat after 20 minutes if needed. max of 2 tabs in one day. active Not Available Not Available No t Available pravastati n 20 mg tablet TAKE 1 TABLET BY MOUTH EVERY DAY active Not Available Not Available No t Available zolpidem 5 mg tablet Take 1 tablet every day by oral route at bedtime. 06/20 completed Not Available Not Available Not Available ergocalcif tyler (vitamin D2) 1,250 mcg (50,000 unit) capsule TK 1 C PO Q WEEK UTD 10/12 completed Not Available Not Available Not Available methylpred nisolone 4 mg tablets in a dose pack TK UTD 06/15 completed Not Available Not Available Not Available hydrocorti sone 2.5 % topical ointment APPLY TOPICALLY TO LIPS TWICE DAILY NEEDED active Not Available Not Available No t Available ondansetro n 4 mg disintegra ting tablet DISSOLVE 1 TABLET ON THE TONGUE EVERY 6 HOURS NEEDED 06/25 completed Not Available Not Available Not Available finasterid e 5 mg tablet TAKE 1 TABLET BY MOUTH TWICE WEEKLY active Not Available Not Available No t Available phentermin e 37.5 mg capsule TK 1 C PO D 10/11 completed Not Available Not Available Not Available progestero ne micronized 100 mg capsule TAKE ONE BY MOUTH EVERY EVENING active Not Available Not Available No t Available bupropion HCl XL 150 mg 24 hr tablet, extended release Take 1 tablet every day by oral route. active Not Available Not Available No t Available nitrofuran toin monohydrat e/macrocry stals 100 mg capsule TAKE 1 CAPSULE BY MOUTH EVERY 12 HOURS FOR 7 DAYS 06/25 completed Not Available Not Available Not Available Zorvolex 35 mg capsule Take 1 capsule 3 times a day by oral route as needed. 10/12 completed print out for tamiko t. Not Available Not Available Not Available Contrave 8 mg-90 mg tablet,ext ended release TK 1 PO QAM X 7 DAYS, 1 BID X 7 DAYS , 2 QAM AND 1 QPM X 7 DAYS THEN 2 BID X 7 DAYS 06/20 completed Not Available Not Available Not Available Vitals Date Recorded Body mass index (BMI) Body height Oxygen saturation Oxygen saturation in Arterial blood by Pulse oximetry Heart rate Body temperature Body weight Systolic blood pressure Diastolic blood pressure Provider Name and Address Organization Details Last Updated DateTime 1 32.4 kg/m2 161.29 cm 99 % 99 % 87 /min 97.7 [degF] 79985.1 8 g 120 mm[Hg] 80 mm[Hg] Not Available [facility] 3 02:52:22 Date Recorded Body mass index (BMI) Body height Oxygen saturation Oxygen saturation in Arterial blood by Pulse oximetry Heart rate Respiratory rate Body temperature Body weight Systolic blood pressure Diastolic blood pressure Provider Name and Address Organization Details Last Updated DateTime 2 31.4 kg/m2 161.29 cm 98 % 98 % 89 /min 16 /min 97.2 [degF] 91484.6 3 g 112 mm[Hg] 70 mm[Hg] Not Available [facility] 3 02:52:22 Date Recorded Body mass index (BMI) Body height Oxygen saturation Oxygen saturation in Arterial blood by Pulse oximetry Heart rate Body temperature Body weight Systolic blood pressure Diastolic blood pressure Provider Name and Address Organization Details Last Updated DateTime 2 31 kg/m2 161.29 cm 98 % 98 % 92 /min 98 [degF] 32675.4 4 g 110 mm[Hg] 70 mm[Hg] Not Available Count includes the [facility] 3 02:52:22 Social History Question Answer Notes LastModified by Relayr ion Details LastModified Time Tobacco Smoking Status Never Smoker Not Available Count includes the [facility] 09/23/2022 02:44:28 What Is Your Level Of Alcohol Consumption? Occasional [id number] Information not available 09/23/2022 What Is Your Level Of Caffeine Consumption? Occasional MIGRATION.[id number] 8900 Information not available 09/23/2022 How Much Tobacco Do You Chew? None MIGRATION.250561 6751 Information not available 09/23/2022 In The 14 Days Before Symptom Onset, Have You Had Close Contact With A Laboratory-confir med COVID-19 While That Case Was Ill? No MIGRATION.[id number] 0786 Information not available 09/23/2022 In The 14 Days Before Symptom Onset, Have You Had Close Contact With A Person Who Is Under Investigation For COVID-19 While That Person Was Ill? No MIGRATION.[id number] 2018 Information not available 09/23/2022 Are You Currently Employed? Yes [email or web address] Information not available 06/25/2023 What Type Of Diet Are You Following? REGULAR MIGRATION.607098 4757 Information not available 09/23/2022 Which Illicit Or Recreational Drugs Have You Used? None MIGRATION.699675 4980 Information not available 09/23/2022 Do You Or Have You Ever Used E-cigarettes Or Vape? 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 No MIGRATION.966363 0714 Information not available 09/23/2022 Do You Use Insect Repellent Routinely? No MIGRATION.537409 4312 Information not available 09/23/2022 What Is Your Relationship Status? MIGRATION.655005 1228 Information not available 09/23/2022 Do You Use Your Seat Belt Or Car Seat Routinely? Yes MIGRATION.751415 8877 Information not available 09/23/2022 Do You Have Smoke And Carbon Monoxide Detectors In Your Home? Yes MIGRATION.754715 1624 Information not available 09/23/2022 Do You Or Have You Ever Used Smokeless Tobacco? Never Used Smokeless Tobacco MIGRATION.458058 4800 Information not available 09/23/2022 How Much Tobacco Do You Smoke? No MIGRATION.147252 3046 Information not available 09/23/2022 Do You Use Any Illicit Or Recreational Drugs? No MIGRATION.817210 8531 Information not available 09/23/2022 Do You Use Sunscreen Routinely? Yes MIGRATION.976962 4050 Information not available 09/23/2022 Have You Recently Traveled Abroad? No MIGRATION.436762 0259 Information not available 09/23/2022 Do You Have Any Dietary Restrictions? No MIGRATION.908483 1118 Information not available 09/23/2022 Do You Or Have You Ever Used Any Other Forms Of Tobacco Or Nicotine? No MIGRATION.119812 7594 Information not available 09/23/2022 Sex: Unknown Functional Status Question Answer Note LastModified by Organizat ion Details LastModified Time What is your exercise level? Moderate [id number] Information not available 09/23/2022 Mental Status None recorded. Family History Relationship Description Onset Age of this Age Resolved Age Notes LastModified by Organization Details LastModified Time Mother Essential hypertension MIGRATION.[id number] Not available 09/23/2022 02:48:34 Mother Rheumatoid arthritis MIGRATION.051 [id number] Not available 09/23/2022 02:48:34 Mother Malignant tumor of lung MIGRATION.124 [id number] Not available 09/23/2022 02:48:34 Father Diabetes mellitus MIGRATION.219 [id number] Not available 09/23/2022 02:48:34 Daughter Adult attention deficit hyperactivit y disorder MIGRATION.498 [id number] Not available 09/23/2022 02:48:34 Daughter Anxiety MIGRATION.253 [id number] Not available 09/23/2022 02:48:34 Medical History Condition Response ANXIETY DISORDER Y BACK / NECK PROBLEMS Y Gynecological History Statement/Question Response Date of Last Pap 2014 Date of Last Mammogram 07/31/2020 Sexually Active? Y Obstetrics History GPAL:G 0 P 0 0 0 0 Immunizations Vaccine Type Date Status Note Provider Nam e and Address Organization Details Recorded Time COVID-19, mRNA, LNP-S, PF, 100 mcg/0.5mL dose or 50 mcg/0.25mL dose 02/16/2021 completed Not Available Count includes the [facility] 03:03:55 Influenza, split virus, quadrivalent, PF 05/11/2018 completed Not Available [facility] 3 03:03:55 Tdap 05/11/2018 completed Not Available Count includes the [facility] 09/23/2022 03:03:55 Past Encounters Encounter ID Performer Location Encounter Start Date Encounter Closed Date Diagnosis/Indication Diagnosis SNOMED-CT Code Diagnosis ICD10 Code Diagnosis Note [id number] [facility] [address] [place] [address] 10/14/2020 00:00:00 10/15/2020 17:04:58 [id number] [facility] [address] [place] [address] 01/07/2022 00:00:00 01/22/2022 14:07:03 [id number] [facility] [address] [place] [address] 04/13/2022 00:00:00 04/22/2022 21:02:08 Health Concerns Section Related Observation LastModified by Organization Detai ls LastModified Time None Recorded Concern Status LastModified by Organization Details LastModified Time None Recorded Advance Directives Directive None Recorded Payers None recorded. Notes Date Note Type Note Provider Name and Address Organization Details Recorded Time 10/15/19 21 text/ht ml HyperlipidemiaReported bypatient.Control:usually well controlled; improving; at goal Compliance:compliant; compliant with diet; exercises Complications:no coronary artery disease; no peripheral artery disease; no cardiovascular disease Not Available [place] [employer] [facility] official.fm 10/15/2020 17:04:58 01/08/20 22 text/ht ml HyperlipidemiaReported bypatient.Duration:chronic Control:usually well controlled Current Therapy:currently taking: (pravastatin 10mg) Compliance:compliant; compliant with diet; exercises Complications:no coronary artery disease; no peripheral artery disease; no cardiovascular diseaseHypothyroidismReported bypatient.Quality:not changing Duration:constant Onset/Timing:still present Context/Risk:normal thyroid levels; no history of head or neck radiation during childhood; no history of thyroid disease; no history of hyperthyroidism; no excess iron exposure;history of hypothyroidism;female gender Modifying Factors:medication Exercisegets exercise Associated Symptoms:no cold intolerance; no heat intolerance; no weight loss; no weight gain; no double vision; no dry eyes; no hoarseness; no difficulty swallowing; no neck masses; no deepening of the voice; no fast heart rate; no increased blood pressure; no palpitations; no chest pain; no chest tightess or pressure; no constipation; no diarrhea; no vomiting; no decreased appetite; no loose stools; no irregular menstrual periods; no excessive sweating; no joint pain; no numbness; no tingling of the hands or feet; no dry skin; no tremor; no nervousness; no anxiety; no depression; no fatigue; no sleep difficulties; no skin changes; no hair changes Not Available [employer] 01/22/2022 14:07:03 04/13/20 22 text/ht ml Abdominal PainReported bypatient.Location:[facility] Quality:pain;sharp;stabbing Severity:severe Duration:~5 minutes, 4 total episodes Onset/Timing:gone now; wax/wane Aggravating Factors:movement (forward movement with pressure on abdomen) Associated Symptoms:no fever; no chills; no blood in the urine; no heartburn; no nausea; no vomiting; no diarrhea; no constipation; normal appetite Other:denies possible Pain Radiation:no radiation Previous Tests, Treatment and/or Diagnostic Procedures:none Not Available [employer] 04/22/2022 21:02:08 OBGyn Episode No OBEpisode recorded.
== END 2024-10-16 12:25 | disposition home or self-care (01) ==
LOC: CHSIMG 12:25
PROVIDERS: PCP Physician Assistant; Visit Provider Physician Assistant
DX: Z12.31 Encounter for screening mammogram for malignant neoplasm of breast (principal)
CPT/HCPCS: 77063; 77067

== ENCOUNTER 2024-11-08 00:24 | Day surgery (SDC) | payer OTHER, SELFPAY ==
[2024-10-27 11:10] VITALS: BMI 24.9
--- NOTE | 2024-10-27 11:11 | PC.NURSE ---
Report to the Outpatient Waiting Room, entrance under the green pavilion located off [facility], at time _0730_ on date _[id number]_. Planned Procedure Time: _0930_.? Time changes happen often and if your time is changed the preop area will call you the afternoon before. - You and your visitor will be asked to self-screen and do not enter if you have any COVID symptoms. Please call surgeon if you need to reschedule. - A mask is optional within the hospital at this time. Patients may have clear liquids (water, carbonated beverages, clear teas, apple juice) until 3 hours prior to surgery with a maximum of 20 ounces. - No food from midnight until time of surgery and no smoking, or chewing tobacco (or any form of nicotine). No chewing gum, candy or mints. Take only the following medications with a SIP of water on the morning of surgery: ___Levothyroxine____ DO NOT STOP ANY OF YOUR OTHER PRESCRIPTION MEDICATIONS PRIOR TO SURGERY EXCEPT THE FOLLOWING Hold all vitamins and supplements for 3 days per anesthesiologist. Medications to discontinue per physician Date to take last flzo___02-27-9922____ Please no make-up, nail mauritian, hairspray, perfume, deodorant, or body powder the day of surgery.? No jewelry (including any body piercings) or valuables the day of surgery, leave them at home.? Please take a shower or bath the night before, or the morning of, surgery with an antibacterial soap.? Wear comfortable, loose fitting clothing.? - Jewelry must be removed prior to entering the operating room.? Rings and piercings that are not removed may be cut off. - The hospital will not accept responsibility for valuables.? - Please leave all valuables, including medications, at home the day of surgery. If you are going home after surgery, a licensed school bus driver/teacher assistant must drive you home.? - NO public transportation without another adult if you receive anesthesia. - We recommend that an adult stay with you for 24 hours following discharge. - We also recommend that you do not drive, make important decision, drink alcoholic beverages, or take any drugs that were not prescribed by your health care provider for at least 24 hours after your discharge time. Follow any additional instructions given to you from your surgeon. Telephone instructions given to __Keysha___and asked if any additional questions and then verbalized understanding. Patient advised to call surgeon office or pre surgery nurse liaison [phone] if any additional questions.
[2024-11-08] VITALS (9 sets, daily range): BP systolic 114–152; BP diastolic 77–98; PULSE 81–109; RESP 14–20; TEMP 36.5–36.6; O2SAT 95–100
--- OUTSIDE RECORDS SUMMARY | 2024-11-08 00:26 | XMS_ITS ---
Author Organization [facility] ewa Address [address] [facility] [address] [place] [address] Care Team Providers Care Buckle Sorter Name Role Phone zzzzMigration, zzzzProvider Unavailable Unav ailable REASON FOR VISIT EMR-Tom Encounters Encounter Location Date Provider Diagnosis [facility] [address] [facility] [address] [place] [address] 05/15/2023 zzzzProvider zzzzMigration Plan Of Treatment No Information Progress Notes * Keysha ROSS FDOB: [birth year] (54 yo F)Acc No.[id number]:05/15/2023 Patient: Keysha CARRILLO :1970 A ge:53 Y S ex:Female Phone: Address:[address] [place] [address], [place], [address] Subjective: * Chief Complaints: * E MR-Tom * Medical History: * Surgical History: * Hospitalization/Major Diagno stic Procedure: * Medications: Objective: * Vitals: * Physical Examination: Assessment: Plan: * Treatment: * Procedure Codes: * true * Date: Generated for Printi ng/Faxing/eTransmitting on: 0 11/08/2024 12:26 AM CDT
--- OUTSIDE RECORDS SUMMARY | 2024-11-08 00:27 | XMS_ITS | Clinical Summary ---
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 Not on file Not on file [...] AM CDT Pulse 105 08/12/2022 8:32 AM SENIOR HR BUSINESS PARTNER Temperature 37.2 C (99 F) 12/05/2019 1:42 PM CDT Respiratory Rate - - Oxygen Saturation 98% 08/12/2022 8:32 AM SENIOR HR BUSINESS PARTNER Inhaled Oxygen Concentration - - Weight 67.6 [...] MAMMOGRAM 2D BILATERAL Routine 08/12/2017 12:00 AM SENIOR HR BUSINESS PARTNER from Last 3 Months or Most Recently Relevant to Health Maintenance Results * Pap and High Risk HPV and Genotyping (Cytology Component) (01/26/2024 12:19 PM CDT) Endocervical (Pap test) 01/26/2024 12:19 PM CDT 01/28/2024 10:49 AM CDT Narrative PATHOLOGY [facility] - 2024 9:48 AM CDT EPIC results best viewed via link to PDF [address] [address] Tele: Annabelle Schumacher MD - Information Systems Architect CYTOLOGY REPORT Note to Patients: This report [...] the details. Patient Name: KEYSHA SCANLON Address: [address] [place] [address] Gender: F : 1970 (Age: 53) Service: Location: N : [id number] [facility] #: [id number] Patient Type: [facility] [place] Taken: 01/26/2024 Reported: 2024 Physician(s): [place] [...] LAB CYTOLOGY ORDERABLES Fin al Result PATHOLOGY [facility] Laboratory Receiving [address] [place] [address] * Screening Mammogram 2D Bilateral (08/12/2017 12:00 AM SENIOR HR BUSINESS PARTNER) Anatomical Region Laterality Modality Breast Bilateral Mammography 08/12/2017 10:2 2 PM SENIOR HR BUSINESS PARTNER Narrative 08/13/2017 9:05 PM SENIOR HR BUSINESS PARTNER - SCREENING MAMM BI BILATERAL DIGITAL SCREENING MAMMOGRAM 3D/2D WITH CAD: 08/12/2017 CLINICAL: Routine screening. Patient has no complaints. Comparison is made to exams dated: 08/05/2015, 05/28/2014, and 04/06/2013 [facility]. The tissue of both breasts is heterogeneously [...] Requesting: GREGORY TANNER M.D. Requesting Requesting ID: [id number] Attending Attending ID: [id number] Completed Time: 08/12/2017 4:22 PM Dictated Time: N/A Transcribed Time: 08/13/2017 3:04 PM Signed by: KATIA RODRIGUEZ on 08/13/2017 3:04 PM Report To 1 ID: [id number] Report To 1 Name: POLINA HARDY Report [...] to exams dated: 08/05/2015, 05/28/2014, and 04/06/2013 [facility]. The tissue of both breasts is heterogeneously [...] Requesting: GREGORY TANNER M.D. Requesting Requesting ID: [id number] Attending Attending ID: [id number] Completed Time: 08/12/2017 4:22 PM Dictated Time: N/A Transcribed Time: 08/13/2017 3:04 PM Signed by: KATIA RODRIGUEZ on 08/13/2017 3:04 PM Report To 1 ID: [id number] Report To 1 Name: POLINA HARDY Report To 1 FAX: Report To 2 ID: Report To 2 Name: , Report To 2 FAX: Report To 3 ID: Report To 3 Name: , Report To 3 FAX: NextGen Order #: Gregory Tanner MD IMG MAMMO PROCEDURES Edite d Result - Final from Last 3 Months or Most Recently Relevant to Health Maintenance Insurance [facility] [id number] [facility] [place] [address] [facility] Care Teams Oracle Etl Developer Relationship Specialty Start Date End Date Polina Hardy PA PCP - General 01/29/17 Moody Vidal III, MD [address] [facility] [facility] [place] [address] Consulting Physician Rheumatology 11/14/19 Shruti Foote MD [address] [place] [address] Referring Physician Qm Nurse 11/22/19
--- OUTSIDE RECORDS SUMMARY | 2024-11-08 00:27 | XMS_ITS | Encounter Summary ---
[facility] Organization [facility] Address [address] [place] [address] Care Team Providers Care Oil Burner Technician Name Role Phone Polina Hardy Primary Care Provider Encounter Details Date Type Department Care Team (Latest Contact Info) Description 10/19/2000 Outpatient Historical [facility] Lb Tanner MD [address] [place] [address] Unspecified high-risk (Primary Dx) Social History Tobacco Use Types Packs/Day Years Used Date Smoking Tobacco: Never Assessed Comments Unknown Sex and Gender Information Value Date Recorded Sex Assigned at Not on file Legal Sex Female 3:41 AM WET PRESS TENDER Gender Identity Not on file Sexual Orientation Not on file documented as of this encounter Plan of Treatment Not on file documented as of this encounter Visit Diagnoses Diagnosis Unspecified high-risk - Primary documented in this encounter Care Teams Oil Burner Technician Relationship Specialty Start Date End Date Polina Hardy PA PCP - General Physician Statistical Typist 01/11/20 documented as of this encounter
--- OUTSIDE RECORDS SUMMARY | 2024-11-08 00:27 | XMS_ITS | Data Portability ---
Author Organization [facility] [employer], Main Office Address [address] [place] [address] Assessment No assessment recorded. Plan of Treatment [...] 3.5 pg/mL 2.0-4. 4 Not Available [facility] ([facility]) [address] [facility], [place], [address], 10/02/2020 08:19:12 10/02/1910/02/2020 HbA1c (hemo globi n A1c), blood hemoglobin A1C 5.3 % 4.8-5. 6 Predi abete s: 5.7 - 6.4 Diabe marie: >6.4 Glyce vivian contr ol for adult s with diabe marie: <7.0 Not Available [facility] ([facility]) [address] [facility], [place], [address], 10/02/2020 08:19:12 10/02/1910/02/2020 lipid panel , serum HDL cholesterol 81 mg/dL >39 Not Available [facility] ([facility]) [address] [facility], [place], [address], 10/02/2020 08:19:11 10/02/19 21 10/02/2020 lipid panel , serum cholesterol, total 209 mg/dL 100-19 9 above high normal Not Available [facility] ([facility]) [address] [place], [address], 10/02/2020 08:19:11 10/02/19 21 10/02/2020 lipid panel , serum triglyceride s 117 mg/dL 0-149 Not Available [facility] ([facility]) [address] [place], [address], 10/02/2020 08:19:11 10/02/19 21 10/02/2020 lipid panel , serum VLDL cholesterol alan 20 mg/dL 5-40 Not Available [facility] ([facility]) [address] [place], [address], 10/02/2020 08:19:11 10/02/19 21 10/02/2020 lipid panel , serum LDL chol calc ([facility]) 108 mg/dL 0-99 above high normal Not Available [facility] ([facility]) [address] [place], [address], 10/02/2020 08:19:11 10/02/19 21 10/02/2020 lipid panel , serum comment: emergency medical service manager Not Available [facility] ([facility]) [address] [place], [address], 10/02/2020 08:19:11 10/02/19 21 10/02/2020 lipid panel , serum T. chol/HDL ratio 2.6 ratio 0.0-4. 4 T. Chol/ HDL Ratio Men Women 1/2 Avg.R isk 3.4 3.3 Avg.R isk 5.0 4.4 2X Avg.R isk 9.6 7.1 3X Avg.R isk 23.4 11.0 Not Available [facility] ([facility]) [address] [place], [address], 10/02/2020 08:19:11 10/02/19 21 10/02/2020 CMP, serum or plasm a glucose 92 mg/dL 65-99 Not Available [facility] ([facility]) [address] [place], [address], 10/02/2020 08:19:11 10/02/19 21 10/02/2020 CMP, serum or plasm a BUN 14 mg/dL 6-24 Not Available [facility] ([facility]) [address] [place], [address], 10/02/2020 08:19:11 10/02/19 21 10/02/2020 CMP, serum or plasm a creatinine 0.60 mg/dL 0.57-1 .00 Not Available [facility] ([facility]) [address] [place], [address], 10/02/2020 08:19:11 10/02/19 21 10/02/2020 CMP, serum or plasm a eGFR if nonafricn AM 107 mL/mi n/1.7 3 >59 Not Available [facility] ([facility]) [address] [place], [address], 10/02/2020 08:19:11 10/02/19 21 10/02/2020 CMP, serum or plasm a eGFR if africn AM 124 mL/mi n/1.7 3 >59 Not Available [facility] ([facility]) [address] [place], [address], 10/02/2020 08:19:11 10/02/19 21 10/02/2020 CMP, serum or plasm a BUN/creatini ne ratio 23 9-23 Not Available [facility] ([facility]) [address] [place], [address], 10/02/2020 08:19:11 10/02/19 21 10/02/2020 CMP, serum or plasm a sodium 139 mmol/ L 134-14 4 Not Available [facility] ([facility]) [address] [place], [address], 10/02/2020 08:19:11 10/02/1910/02/2020 CMP, serum or plasm a potassium 4.7 mmol/ L 3.5-5. 2 Not Available [facility] ([facility]) [address] [place], [address], 10/02/2020 08:19:11 10/02/1910/02/2020 CMP, serum or plasm a chloride 103 mmol/ L 96-106 Not Available [facility] ([facility]) [address] [place], [address], 10/02/2020 08:19:11 10/02/1910/02/2020 CMP, serum or plasm a carbon dioxide, total 21 mmol/ L 20-29 Not Available [facility] ([facility]) [address] [place], [address], 10/02/2020 08:19:11 10/02/1910/02/2020 CMP, serum or plasm a calcium 9.3 mg/dL 8.7-10 .2 Not Available [facility] ([facility]) [address] [place], [address], 10/02/2020 08:19:11 10/02/1910/02/2020 CMP, serum or plasm a protein, total 6.8 g/dL 6.0-8. 5 Not Available [facility] ([facility]) [address] [place], [address], 10/02/2020 08:19:11 10/02/1910/02/2020 CMP, serum or plasm a albumin 4.0 g/dL 3.8-4. 8 Not Available [facility] ([facility]) [address] [place], [address], 10/02/2020 08:19:11 10/02/19 21 10/02/2020 CMP, serum or plasm a globulin, total 2.8 g/dL 1.5-4. 5 Not Available [facility] ([facility]) [address] [place], [address], 10/02/2020 08:19:11 10/02/19 21 10/02/2020 CMP, serum or plasm a A/G ratio 1.4 1.2-2. 2 Not Available [facility] ([facility]) [address] [place], [address], 10/02/2020 08:19:11 10/02/19 21 10/02/2020 CMP, serum or plasm a bilirubin, total 0.4 mg/dL 0.0-1. 2 Not Available [facility] ([facility]) [address] [place], [address], 10/02/2020 08:19:11 10/02/19 21 10/02/2020 CMP, serum or plasm a alkaline phosphatase 60 IU/L 39-117 Not Available [facility] ([facility]) [address] [place], [address], 10/02/2020 08:19:11 10/02/19 21 10/02/2020 CMP, serum or plasm a AST (SGOT) 17 IU/L 0-40 Not Available [facility] ([facility]) [address] [place], [address], 10/02/2020 08:19:11 10/02/19 21 10/02/2020 CMP, serum or plasm a ALT (SGPT) 16 IU/L 0-32 Not Available [facility] ([facility]) [address] [place], [address], 10/02/2020 08:19:11 10/02/19 21 10/02/2020 CBC w/ auto diff WBC 6.5 x10e3 /uL 3.4-10 .8 Not Available [facility] ([facility]) [address] [facility], [place], [address], 10/02/2020 08:19:10 10/02/19 21 10/02/2020 CBC w/ auto diff RBC 4.61 x10e6 /uL 3.77-5 .28 Not Available [facility] ([facility]) [address] [facility], [place], [address], 10/02/2020 08:19:10 10/02/19 21 10/02/2020 CBC w/ auto diff hemoglobin 13.3 g/dL 11.1-1 5.9 Not Available [facility] ([facility]) [address] [facility], [place], [address], 10/02/2020 08:19:10 10/02/19 21 10/02/2020 CBC w/ auto diff hematocrit 40.6 % 34.0-4 6.6 Not Available [facility] ([facility]) [address] [facility], [place], [address], 10/02/2020 08:19:10 10/02/19 21 10/02/2020 CBC w/ auto diff MCV 88 fL 79-97 Not Available [facility] ([facility]) [address] [facility], [place], [address], 10/02/2020 08:19:10 10/02/19 21 10/02/2020 CBC w/ auto diff MCH 28.9 pg 26.6-3 3.0 Not Available [facility] ([facility]) [address] [place], [address], 10/02/2020 08:19:10 10/02/19 21 10/02/2020 CBC w/ auto diff MCHC 32.8 g/dL 31.5-3 5.7 Not Available [facility] ([facility]) [address] [place], [address], 10/02/2020 08:19:10 10/02/19 21 10/02/2020 CBC w/ auto diff RDW 12.9 % 11.7-1 5.4 Not Available [facility] ([facility]) [address] [facility], [place], [address], 10/02/2020 08:19:10 10/02/19 21 10/02/2020 CBC w/ auto diff platelets 289 x10e3 /uL 150-45 0 Not Available [facility] ([facility]) [address] [facility], [place], [address], 10/02/2020 08:19:10 10/02/19 21 10/02/2020 CBC w/ auto diff neutrophils 50 % not estab. Not Available [facility] ([facility]) [address] [facility], [place], [address], 10/02/2020 08:19:10 10/02/19 21 10/02/2020 CBC w/ auto diff lymphs 40 % not estab. Not Available [facility] ([facility]) [address] [facility], [place], [address], 10/02/2020 08:19:10 10/02/19 21 10/02/2020 CBC w/ auto diff monocytes 7 % not estab. Not Available [facility] ([facility]) [address] [facility], [place], [address], 10/02/2020 08:19:10 10/02/19 21 10/02/2020 CBC w/ auto diff eos 2 % not estab. Not Available [facility] ([facility]) [address] [facility], [place], [address], 10/02/2020 08:19:10 10/02/19 21 10/02/2020 CBC w/ auto diff basos 1 % not estab. Not Available [facility] ([facility]) [address] [facility], [place], [address], 10/02/2020 08:19:10 10/02/19 21 10/02/2020 CBC w/ auto diff immature cells emergency medical service manager Not Available [facility] ([facility]) [address] [facility], [place], [address], 10/02/2020 08:19:10 10/02/19 21 10/02/2020 CBC w/ auto diff neutrophils (absolute) 3.3 x10e3 /uL 1.4-7. 0 Not Available [facility] ([facility]) [address] [facility], [place], [address], 10/02/2020 08:19:10 10/02/19 21 10/02/2020 CBC w/ auto diff lymphs (absolute) 2.6 x10e3 /uL 0.7-3. 1 Not Available [facility] ([facility]) [address] [facility], [place], [address], 10/02/2020 08:19:10 10/02/19 21 10/02/2020 CBC w/ auto diff monocytes(ab solute) 0.5 x10e3 /uL 0.1-0. 9 Not Available [facility] ([facility]) [address] [facility], [place], [address], 10/02/2020 08:19:10 10/02/19 21 10/02/2020 CBC w/ auto diff eos (absolute) 0.1 x10e3 /uL 0.0-0. 4 Not Available [facility] ([facility]) [address] [place], [address], 10/02/2020 08:19:10 10/02/19 21 10/02/2020 CBC w/ auto diff baso (absolute) 0.0 x10e3 /uL 0.0-0. 2 Not Available [facility] ([facility]) [address] [facility], [place], [address], 10/02/2020 08:19:10 10/02/19 21 10/02/2020 CBC w/ auto diff immature granulocytes 0 % not estab. Not Available [facility] ([facility]) [address] [place], [address], 10/02/2020 08:19:10 10/02/19 21 10/02/2020 CBC w/ auto diff immature grans (abs) 0.0 x10e3 /uL 0.0-0. 1 Not Available [facility] ([facility]) [address] [place], [address], 10/02/2020 08:19:10 10/02/19 21 10/02/2020 CBC w/ auto diff NRBC emergency medical service manager Not Available [facility] ([facility]) [address] [place], [address], 10/02/2020 08:19:10 10/02/19 21 10/02/2020 CBC w/ auto diff hematology comments: emergency medical service manager Not Available [facility] ([facility]) [address] [place], [address], 10/02/2020 08:19:10 10/02/1910/02/2020 TSH + free T4, serum TSH 0.007 uIU/m L 0.450- 4.500 below low normal Not Available [facility] ([facility]) [address] [place], [address], 10/02/2020 08:19:10 10/02/1910/02/2020 TSH + free T4, serum T4,free(dire ct) 1.28 NG/dL 0.82-1 .77 Not Available [facility] ([facility]) [address] [place], [address], 10/02/2020 08:19:10 10/02/1910/02/2020 urina lysis , dipst ick, refle x micro specific gravity 1.021 1.005- 1.030 Not Available [facility] ([facility]) [address] [place], [address], 10/02/2020 08:19:09 10/02/19 21 10/02/2020 urina lysis , dipst ick, refle x micro pH 5.5 5.0-7. 5 Not Available [facility] ([facility]) [address] [facility], [place], [address], 10/02/2020 08:19:09 10/02/19 21 10/02/2020 urina lysis , dipst ick, refle x micro urine-color yellow yellow Not Available [facility] ([facility]) [address] [facility], [place], [address], 10/02/2020 08:19:09 10/02/19 21 10/02/2020 urina lysis , dipst ick, refle x micro appearance clear clear Not Available [facility] ([facility]) [address] [facility], [place], [address], 10/02/2020 08:19:09 10/02/19 21 10/02/2020 urina lysis , dipst ick, refle x micro WBC esterase negati ve negati ve Not Available [facility] ([facility]) [address] [facility], [place], [address], 10/02/2020 08:19:09 10/02/1910/02/2020 urina lysis , dipst ick, refle x micro protein negati ve negati ve/tra ce Not Available [facility] ([facility]) [address] [facility], [place], [address], 10/02/2020 08:19:09 10/02/1910/02/2020 urina lysis , dipst ick, refle x micro glucose negati ve negati ve Not Available [facility] ([facility]) [address] [facility], [place], [address], 10/02/2020 08:19:09 10/02/1910/02/2020 urina lysis , dipst ick, refle x micro ketones negati ve negati ve Not Available [facility] ([facility]) [address] [facility], [place], [address], 10/02/2020 08:19:09 10/02/19 21 10/02/2020 urina lysis , dipst ick, refle x micro occult blood negati ve negati ve Not Available [facility] ([facility]) [address] [facility], [place], [address], 10/02/2020 08:19:09 10/02/1910/02/2020 urina lysis , dipst ick, refle x micro bilirubin negati ve negati ve Not Available [facility] ([facility]) [address] [facility], [place], [address], 10/02/2020 08:19:09 10/02/1910/02/2020 urina lysis , dipst ick, refle x micro urobilinogen ,semi-qn 0.2 mg/dL 0.2-1. 0 Not Available [facility] ([facility]) [address] [facility], [place], [address], 10/02/2020 08:19:09 10/02/1910/02/2020 urina lysis , dipst ick, refle x micro nitrite, urine negati ve negati ve Not Available [facility] ([facility]) [address] [place], [address], 10/02/2020 08:19:09 10/02/1910/02/2020 urina lysis , dipst ick, refle x micro microscopic examination commen t Micro scopi c not indic ated and not perfo rmed. Not Available [facility] ([facility]) [address] [place], [address], 10/02/2020 08:19:09 01/16/20 22 01/16/2022 LIPID PANEL WITH LDL/H DL RATIO LDL/HDL ratio 2.1 ratio 0.0-3. 2 LDL/H DL Ratio Men Women 1/2 Avg.R isk 1.0 1.5 Avg.R isk 3.6 3.2 2X Avg.R isk 6.2 5.0 3X Avg.R isk 8.0 6.1 Not Available [facility] ([facility]) [address] [place], [address], 01/16/2022 05:09:25 01/16/20 22 01/16/2022 LIPID PANEL WITH LDL/H DL RATIO cholesterol, total 299 mg/dL 100-19 9 above high normal Not Available [facility] ([facility]) [address] [place], [address], 01/16/2022 05:09:25 01/16/20 22 01/16/2022 LIPID PANEL WITH LDL/H DL RATIO triglyceride s 166 mg/dL 0-149 above high normal Not Available [facility] ([facility]) [address] [place], [address], 01/16/2022 05:09:25 01/16/20 22 01/16/2022 LIPID PANEL WITH LDL/H DL RATIO HDL cholesterol 87 mg/dL >39 Not Available [facility] ([facility]) [address] [place], [address], 01/16/2022 05:09:25 01/16/20 22 01/16/2022 LIPID PANEL WITH LDL/H DL RATIO VLDL cholesterol alan 30 mg/dL 5-40 Not Available [facility] ([facility]) [address] [place], [address], 01/16/2022 05:09:25 01/16/20 22 01/16/2022 LIPID PANEL WITH LDL/H DL RATIO LDL chol calc ([facility]) 182 mg/dL 0-99 above high normal Not Available [facility] ([facility]) [address] [facility], [place], [address], 01/16/2022 05:09:25 01/16/20 22 01/16/2022 LIPID PANEL WITH LDL/H DL RATIO comment: emergency medical service manager Not Available [facility] ([facility]) [address] [facility], [place], [address], 01/16/2022 05:09:25 11/06/19 21 11/28/2019 XR, knee, 3 view No observ ation record ed. [id number] Not Available 09/23/2022 03:04:27 11/06/19 21 12/20/2019 MRI, knee, w/o contr ast No observ ation record ed. [id number] Not Available 09/23/2022 03:04:27 04/08/20 21 03/26/2021 XR, ankle , 2 view No observ ation record ed. [id number], [place], [address], 09/23/2022 03:04:27 04/23/20 22 04/22/2022 CT, abdom en + pelvi s, w/ contr ast No observ ation record ed. [id number] [facility] [address], [place], [address], 09/23/2022 03:04:27 10/22/19 23 10/15/2022 colon oscop y scree autumn (PROC ) No observ ation record ed. [facility] [address] [place], [address], 10/22/2022 15:40:22 12/05/19 23 12/03/2022 XR, knee No observ ation record ed. [email or web address] [facility] [address], [place], [address], 12/08/2022 11:28:07 Result Notes None recorded. Problems Name Problem SNOMED Code Status Onset Date Resolution Date Notes Provider Name and Address Organization Details Recorded Time Body mass index 25-29 - overweight 180685246 Active Not Available [facility] 3 02:55:25 Blood glucose outside reference range 915462646 Active Not Available [facility] 3 02:55:25 Mixed hyperlipid emia 265230893 Active 2021 Not Available [facility] 3 02:55:25 Low back pain 936093184 Active Not Available [facility] 3 02:55:25 Left upper quadrant pain 650130252 Active 2021 Not Available [facility] 3 02:55:25 Vitamin D deficiency 65956823 Active Not Available [facility] 3 02:55:25 Hypothyroi dism 22882670 Active Not Available [facility] 3 02:55:25 Calcificat ion of coronary artery 234380430 Active 2021 Not Available [facility] 3 02:55:25 Hyperlipid emia 21210313 Active 2019 Not Available [facility] 3 02:55:25 Urinary tract infectious disease 88198383 Active Not Available [facility] 3 02:55:25 Weight gain 7881185 Active 2021 Not Available [facility] 3 02:55:25 Acute urinary tract infection 024630741 Active 2022 ENDY Alvarado null, [place] [facility] [employer] 3 10:22:31 Pain of right knee joint 9795048000605 00 Active 2022 LUISITO [address] [facility], [facility] [address], [place], [address] , [facility] [address] [employer] 3 14:52:06 Problem Notes None recorded. Procedures Surgical History Date Name Laterality Status Provider Name and Address Organization Details Recorded Time Orthopedic Surgery completed Not Available [facility] 09/23/2022 02:48:31 Imaging Results Imaging Date Name Status LastModified by Organiz ation Details LastModified Time 11/28/2019 XR, knee, 3 view completed [id number] Information not available 09/23/2022 03:04:27 12/20/2019 MRI, knee, w/o contrast completed [id number] Information not available 09/23/2022 03:04:27 03/26/2021 XR, ankle, 2 view completed [id number] [facility] [address], [place], [address], 09/23/2022 03:04:27 04/22/2022 CT, abdomen + pelvis, w/ contrast completed [id number] [facility] [address], [place], [address], 09/23/2022 03:04:27 10/15/2022 colonoscopy screening (PROC) completed [address] [place], [address], 10/22/2022 15:40:22 12/03/2022 XR, knee completed [email or web address] [facility] [address], [place], [address], 12/08/2022 11:28:07 Procedure Notes None recorded. Medical [...] % 99 % 87 /min 97.7 [degF] 18598.1 8 g 120 mm[Hg] 80 mm[Hg] Not Available [facility] 3 02:52:22 Date Recorded Body mass index (BMI) Body height Oxygen saturation Oxygen saturation in Arterial blood by Pulse oximetry Heart rate Respiratory rate Body temperature Body weight Systolic blood pressure Diastolic blood pressure Provider Name and Address Organization Details Last Updated DateTime 2 31.4 kg/m2 161.29 cm 98 % 98 % 89 /min 16 /min 97.2 [degF] 34615.6 3 g 112 mm[Hg] 70 mm[Hg] Not Available [facility] 3 02:52:22 Date Recorded Body mass index (BMI) Body height Oxygen saturation Oxygen saturation in Arterial blood by Pulse oximetry Heart rate Body temperature Body weight Systolic blood pressure Diastolic blood pressure Provider Name and Address Organization Details Last Updated DateTime 2 31 kg/m2 161.29 cm 98 % 98 % 92 /min 98 [degF] 36944.4 4 g 110 mm[Hg] 70 mm[Hg] Not Available [facility] 3 02:52:22 Social History Question Answer Notes LastModified by [employer] ion Details LastModified Time Tobacco Smoking Status Never Smoker Not Available [facility] 09/23/2022 02:44:28 What Is Your Level Of Alcohol Consumption? Occasional [id number] Information not available 09/23/2022 What Is Your Level Of Caffeine Consumption? Occasional [id number] Information not available 09/23/2022 How Much Tobacco Do You Chew? None [id number] Information not available 09/23/2022 In The 14 Days Before Symptom Onset, Have You Had Close Contact With A Laboratory-confir med COVID-19 While That Case Was Ill? No [id number] Information not available 09/23/2022 In The 14 Days Before Symptom Onset, Have You Had Close Contact With A Person Who Is Under Investigation For COVID-19 While That Person Was Ill? No [id number] Information not available 09/23/2022 Are You Currently Employed? Yes [email or web address] Information not available 06/25/2023 What Type Of Diet Are You Following? REGULAR [id number] Information not available 09/23/2022 Which Illicit Or Recreational Drugs Have You Used? None [id number] Information not available 09/23/2022 Do You Or Have You Ever Used E-cigarettes Or Vape? 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 No [id number] Information not available 09/23/2022 Do You Use Insect Repellent Routinely? No [id number] Information not available 09/23/2022 What Is Your Relationship Status? [id number] Information not available 09/23/2022 Do You Use Your Seat Belt Or Car Seat Routinely? Yes [id number] Information not available 09/23/2022 Do You Have Smoke And Carbon Monoxide Detectors In Your Home? Yes [id number] Information not available 09/23/2022 Do You Or Have You Ever Used Smokeless Tobacco? Never Used Smokeless Tobacco [id number] Information not available 09/23/2022 How Much Tobacco Do You Smoke? No [id number] [id number] Information not available 09/23/2022 Do You Use Any Illicit Or Recreational Drugs? No [id number] Information not available 09/23/2022 Do You Use Sunscreen Routinely? Yes [id number] Information not available 09/23/2022 Have You Recently Traveled Abroad? No [id number] 7154 Information not available 09/23/2022 Do You Have Any Dietary Restrictions? No MIGRATION.050126 6157 Information not available 09/23/2022 Do You Or Have You Ever Used Any Other Forms Of Tobacco Or Nicotine? No [id number].[id number] 3070 Information not available 09/23/2022 Sex: Unknown Functional Status Question Answer Note LastModified by Organizat ion Details LastModified Time What is your exercise level? Moderate [id number] Information not available 09/23/2022 Mental Status None recorded. Family History Relationship Description Onset Age of this Age Resolved Age Notes LastModified by Organization Details LastModified Time Mother Essential hypertension [id number] Not available 09/23/2022 02:48:34 Mother Rheumatoid arthritis [id number] Not available 09/23/2022 02:48:34 Mother Malignant tumor of lung [id number] Not available 09/23/2022 02:48:34 Father Diabetes mellitus [id number] Not available 09/23/2022 02:48:34 Daughter Adult attention deficit hyperactivit y disorder [id number] Not available 09/23/2022 02:48:34 Daughter Anxiety [id number] Not available 09/23/2022 02:48:34 Medical History Condition Response BACK / NECK PROBLEMS Y ANXIETY DISORDER Y Gynecological History Statement/Question Response Date of Last Pap 2014 Date of Last Mammogram 07/31/2020 Sexually Active? Y Obstetrics History GPAL:G 0 P 0 0 0 0 Immunizations Vaccine Type Date Status Note Provider Nam e and Address Organization Details Recorded Time COVID-19, mRNA, LNP-S, PF, 100 mcg/0.5mL dose or 50 mcg/0.25mL dose 02/16/2021 completed Not Available [facility] 03:03:55 Influenza, split virus, quadrivalent, PF 05/11/2018 completed Not Available [facility] 3 03:03:55 Tdap 05/11/2018 completed Not Available [facility] 09/23/2022 03:03:55 Past Encounters Encounter ID Performer Location Encounter Start Date Encounter Closed Date Diagnosis/Indication Diagnosis SNOMED-CT Code Diagnosis ICD10 Code Diagnosis Note [id number] [facility] [address] [place] [address] 10/14/2020 00:00:00 10/15/2020 17:04:58 [id number] [facility] [address] [place] [address] 01/07/2022 00:00:00 01/22/2022 14:07:03 [id number] [facility] [address] [place] [address] 04/13/2022 00:00:00 04/22/2022 21:02:08 Health Concerns [...] artery disease; no cardiovascular disease Not Available [facility] [employer] 10/15/2020 17:04:58 01/08/20 22 text/ht ml HyperlipidemiaReported [...] skin changes; no hair changes Not Available [facility] 01/22/2022 14:07:03 04/13/20 22 text/ht ml Abdominal PainReported bypatient.Location:[facility] Quality:pain;sharp;stabbing Severity:severe Duration:~5 minutes, 4 total episodes Onset/Timing:gone now; wax/wane Aggravating Factors:movement (forward movement with pressure on abdomen) Associated Symptoms:no fever; no chills; no blood in the urine; no heartburn; no nausea; no vomiting; no diarrhea; no constipation; normal appetite Other:denies possible Pain Radiation:no radiation Previous Tests, Treatment and/or Diagnostic Procedures:none Not Available [facility] 04/22/2022 21:02:08 OBGyn Episode No OBEpisode recorded.
--- OUTSIDE RECORDS SUMMARY | 2024-11-08 00:27 | XMS_ITS | Referral Summary ---
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 Not on file Not on file Not on fi le Last Filed Vital Signs Vital Sign Reading Time Taken Comments Blood Pressure 120/76 01/26/2024 11:05 AM CDT Pulse 105 08/12/2022 8:32 AM BAG END SEWER Temperature 37.2 C (99 F) 12/05/2019 1:42 PM CDT Respiratory Rate - - Oxygen Saturation 98% 08/12/2022 8:32 AM BAG END SEWER Inhaled Oxygen Concentration - - Weight 67.6 [...] MAMMOGRAM 2D BILATERAL Routine 08/12/2017 12:00 AM BAG END SEWER from Last 3 Months or Most Recently Relevant to Health Maintenance Results * Pap and High Risk HPV and Genotyping (Cytology Component) (01/26/2024 12:19 PM CDT) Endocervical (Pap test) 01/26/2024 12:19 PM CDT 01/28/2024 10:49 AM CDT Narrative PATHOLOGY [facility] - 2024 9:48 AM CDT EPIC results best viewed via link to PDF [address] [address] Tele: Annabelle Schumacher MD - [employer] Vol[employer] CYTOLOGY REPORT Note to Patients: This report [...] the details. Patient Name: KEYSHA ROSS Address: [address] [place] [address] Gender: F : 1970 (Age: 53) Service: Location: [facility] : [id number] [facility] #: [id number] [place] [facility] [place] Taken: 01/26/2024 Reported: 2024 Physician(s): [place] [...] LAB CYTOLOGY ORDERABLES Fin al Result PATHOLOGY [facility] Laboratory Receiving [address] [place] [address] * Screening Mammogram 2D Bilateral (08/12/2017 12:00 AM BAG END SEWER) Anatomical Region Laterality Modality Breast Bilateral Mammography 08/12/2017 10:2 2 PM BAG END SEWER Narrative 08/13/2017 9:05 PM BAG END SEWER - SCREENING MAMM BI BILATERAL DIGITAL SCREENING MAMMOGRAM 3D/2D WITH CAD: 08/12/2017 CLINICAL: Routine screening. Patient has no complaints. Comparison is made to exams dated: 08/05/2015, 05/28/2014, and 04/06/2013 [facility]. The tissue of both breasts is [...] Requesting: GREGORY TANNER M.D. Requesting Requesting ID: [id number] Attending Attending ID: [id number] Completed Time: 08/12/2017 4:22 PM Dictated Time: N/A Transcribed Time: 08/13/2017 3:04 PM Signed by: KATIA RODRIGUEZ on 08/13/2017 3:04 PM Report To 1 ID: [id number] Report To 1 Name: POLINA FINE Report [...] to exams dated: 08/05/2015, 05/28/2014, and 04/06/2013 [facility]. The tissue of both breasts is [...] Requesting: GREGORY TANNER M.D. Requesting Requesting ID: [id number] Attending Attending ID: [id number] Completed Time: 08/12/2017 4:22 PM Dictated Time: N/A Transcribed Time: 08/13/2017 3:04 PM Signed by: KATIA RODRIGUEZ on 08/13/2017 3:04 PM Report To 1 ID: [id number] Report To 1 Name: POLINA FINE Report To 1 FAX: Report To 2 ID: Report To 2 Name: , Report To 2 FAX: Report To 3 ID: Report To 3 Name: , Report To 3 FAX: NextGen Order #: Gregory Tanner MD IMG MAMMO PROCEDURES Edite d Result - Final from Last 3 Months or Most Recently Relevant to Health Maintenance Insurance [facility] CHOICE PL[facility] HMO/PPO Address: [place] [address] [facility] HMO/PPO Address: [address] [place] [address] [facility] CHO[facility] HMO/PPO Address: [address] [place] [address] [facility] CHO[facility] HMO/PPO Address: [address] [place] [address] Care Teams Rug Clipper Relationship Specialty Start Date End Date Polina Fine PA PCP - General 01/29/17 Moody Vidal III, MD [address] [facility] [address] [place] [address] Consulting Physician Rheumatology 11/14/19 Shruti Foote MD [address] [place] [address] Referring Physician Hydraulic Spinner 11/22/19
--- OUTSIDE RECORDS SUMMARY | 2024-11-08 00:27 | XMS_ITS ---
Author Organization [facility] Address [address] [address] Care Team Providers Care Dope Dry House Operator Name Role Phone zzzzMigration, zzzzProvider Unavailable Unav ailable Allergies No Known Allergies [facility]AS[facility] Medications Medication SIG (Take, Route, Frequency, Duration) Notes Start Date End Date Status t3 and t4 compound t3 310 mg t4 55 mg daily *Reorder from [employer] for eRx and Interaction Alerts* Active Encounters Encounter Location Date Provider Diagnosis [facility] [address], [place] [address] 05/16/2023 zzzzProvider zzzzMigration Plan Of Treatment No Information Progress Notes * Keysha ROSS FDOB: [birth year] (54 yo F)Acc No.[id number]:05/16/2023 Patient: Keysha CARRILLO :1970 A ge:53 Y S ex:Female Phone: Address:[address] [place] [address], [place], [address] Subjective: * Chief Complaints: * E MR-Tom * Medical History: * 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
--- OUTSIDE RECORDS SUMMARY | 2024-11-08 00:27 | XMS_ITS | Encounter Summary ---
Author Organization [facility] Address [address] [place] [address] Care Team Providers Care Transcribing Machine Operator Name Role Phone Polina Hardy Primary Care Provider Encounter Details Date Type Department Care Team (Latest Contact Info) Description 08/16/2000 Outpatient Historical [facility] Lb Tanner MD [address] [facility] [place] [address] Unspecified high-risk (Primary Dx) Social History Tobacco Use Types Packs/Day Years Used Date Smoking Tobacco: Never Assessed Comments Unknown Sex and Gender Information Value Date Recorded Sex Assigned at Not on file Legal Sex Female 3:41 AM 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
--- OUTSIDE RECORDS SUMMARY | 2024-11-08 00:27 | XMS_ITS | Data Portability ---
Author Organization [facility] Address [address] [place] [address] Care Team Providers Care Insurance Agency Owner Name Role Phone PREMA FINE Primary Care Provider Unavailab le Assessment Encounter Date Assessment Date Assessment LastModified by Organization Details LastModified Time 12/01/2023 12/01/2023 mammogram 2023 all normal colonoscopy 2022, all clear good for 10 years. pap smear UTD in [place]. eye exam and dental UTD [email or web address] Not available 12/01/2023 16:31:43 Plan of Treatment Reminders Order Date Submit Date Provider Last Modified By Organization Details Last Modified Time Details Appointments ANY 15 2024 09:00A M LUISITO Correia Not available Not available Not available Lab lipid panel, serum 2023 024 [employer] [facility], [address], [place], [address], 12/16/2023 16:32:21 CMP, serum or plasma 2023 024 [employer] [facility], [address], [place], [address], 12/16/2023 16:32:22 CBC w/ auto diff 2023 024 [employer] [facility], [address], [place], [address], 12/16/2023 16:32:22 HbA1c (hemoglo bin A1c), blood 2023 024 [employer] [facility], [address], [place], [address], 12/16/2023 16:32:22 Referral None recorded . Procedures None recorded . Surgeries None recorded . Imaging None recorded . Medication Orders None recorded . Patient TargetsNo targets recorded. Patient InstructionsNo instructions recorded. Reason for Referral None Reported. Results Created Date Observation Date Name Description Value Unit Range Abnormal Flag Note LastModifiedBy Organization Detail LastModifiedTime 10/18/1910/16/2024 MAMMO , scree autumn, digit al, bilat eral No observ ation record ed. [address] [place], [address], 10/20/2024 00:14:41 Result Notes None recorded. Problems Name Problem SNOMED Code Status Onset Date Resolution Date Notes Provider Name and Address Organization Details Recorded Time Hypothyroidism 67279932 Active 2023 LUISITO Correia Attn: Lynn zabala,[address] [place], [address], [facility] 4 21:51:37 Long-term drug therapy Active 2023 LUISITO Correia Attn: Lynn zabala,[address] [place], [address], [facility] - [place] 4 21:51:38 Problem Notes None recorded. Procedures Surgical History Date Name Laterality Status Provider Name and Address Organization Details Recorded Time Knee Surgery completed Jose Elias Olivares MA [facility] 12/01/2023 16:17:02 Tonsillectomy completed Jose Elias Olivares MA [facility] 12/01/2023 16:17:07 Imaging Results Imaging Date Name Status LastModified by Organiz ation Details LastModified Time 10/16/2024 MAMMO, screening, digital, bilateral completed [address] [place], [address], 10/20/2024 00:14:41 Procedure Notes None recorded. Medical Equipment None Reported. Allergies No known drug allergies Medications Name Sig Start Date Stop Date Status Note LastModified by Organization Details LastModified Time t4-t3 e4m 270-44mcg capsules active Not Available Not Available Not Available fluconazole 150 mg tablet TAKE 1 TABLET BY MOUTH EVERY DAY FOR 2 DAYS active Not Available Not Available No t Available ondansetron HCl 4 mg tablet TAKE 1 TABLET BY MOUTH EVERY 6 HOURS NEEDED FOR NAUSEA active Not Available Not Available No t [...] oxycodone-a cetaminophe n 5 mg-325 mg tablet TAKE 1 TABLET BY MOUTH EVERY 6 HOURS NEEDED FOR PAIN active Not Available Not Available No t Available erythromyci n 5 mg/gram (0.5 %) eye ointment APPLY 1 CM RIBBON INTO THE LOWER CONJUNCTI EMI SAC(S) IN THE AFFECTED EYE(S) BY OPHTHALMI C ROUTE 3 TIMES PER DAY active Not Available Not Available No t Available docusate sodium 100 mg capsule TAKE 1 CAPSULE BY MOUTH TWICE DAILY active Not Available Not Available No [...] and Address Organization Details Last Updated DateTime 19464.1 4 g 20 /min 25.8 kg/m2 162.56 cm 98 % 98 % 100 /min 118 mm[Hg] 82 mm[Hg] Jose Elias Olivares MA MD - [facility] 16:13:55 Social History Question Answer Notes LastModified by Organizat ion Details LastModified Time Tobacco Smoking Status Never Smoker Jose Elias Olivares MA null, MD - [facility] 12/01/2023 16:11:38 Do You Have An Advance [...] Response Coronary Artery Disease N Other N Atrial Fibrillation N High Blood Pressure N Thyroid Problems Y Kidney or Bladder Problems N GI Problems N Depression N COPD N Blood Clots N Skin Problems N Anemia N Heart Attack (OK) N Diabetes N Anxiety Disorder N Muscle, Joint, or Bone Problems N Seizures/Epilepsy N Acid Reflux (GERD) N Cancer N Stroke N Asthma N Allergies N High Cholesterol N Hepatitis N Liver Disease N Headaches N Osteoporosis N Heart Failure N Gynecological History Statement/Question Response Menses Monthly N Current Control Method Menopause Obstetrics History GPAL:G 0 P 0 0 0 0 Past Encounters Encounter ID Performer Location Encounter Start Date Encounter Closed Date Diagnosis/Indication Diagnosis SNOMED-CT Code Diagnosis ICD10 Code Diagnosis Note [id number] LUISITO Correia [facility] [address] [place] [address] 12/01/2023 15:55:37 12/01/2023 16:57:46 Adult health examination 463046813 Z00.00 annual wellness completed. Long-term drug therapy 714713801 Z79.899 routine CBC and CMP due. Hypothyroidism 76490820 E03.9 on compounded medication , a little lower dose now she reports. Diabetes m ellitus screening 965808765 Z13.1 a1c annual screening due. Cholesterol screening 27 1935184 Z13.220 fasting lipids are due. Health Concerns Section Related Observation LastModified by Organization Detai ls LastModified Time None Recorded Concern Status LastModified by Organization Details LastModified Time None Recorded Advance Directives Directive Y: Payers Encounter Date Sequence Insurance Name Policy Number Policy Hall Covered Member ID Hall Member ID Guarantor Name 12/01/2023 1 [facility] [id number] Keysha Scanlon [id number] Keysha Scanlon Notes Date Note Type Note Provider Name and Address Organization Details Recorded Time 12/01/2023 text/html ThyroidReported bypatient.Notes:pt is currently taking compounded thyroid supplement from endocrine provider. LUISITO Correia Attn: Accounting[address] [facility], [place], [address], [facility] 03/02/2024 17:48:20 OBGyn Episode No OBEpisode recorded.
--- OUTSIDE RECORDS SUMMARY | 2024-11-08 00:27 | XMS_ITS | Encounter Summary ---
Author Organization [facility] Address [address] [place] [address] Care Team Providers Care Forklift Wheel Loader Name Role Phone Polina Hardy Primary Care Provider Encounter Details Date Type Department Care Team (Latest Contact Info) Description 07/15/2000 Outpatient Historical [facility] Lb Tanner MD [address] [facility] [address] [place] [address] Unspecified high-risk (Primary Dx) Social History Tobacco Use Types Packs/Day Years Used Date Smoking Tobacco: Never Assessed Comments Unknown Sex and Gender Information Value Date Recorded Sex Assigned at Not on file Legal Sex Female 3:41 AM INCOME TAX ADJUSTER Gender Identity Not on file Sexual Orientation Not on file documented as of this encounter Plan of Treatment Not on file documented as of this encounter Visit Diagnoses Diagnosis Unspecified high-risk - Primary documented in this encounter Care Teams Forklift Wheel Loader Relationship Specialty Start Date End Date Polina Hardy PA PCP - General Physician Loss Prevention Leader 01/11/20 documented as of this encounter
--- OUTSIDE RECORDS SUMMARY | 2024-11-08 00:27 | XMS_ITS | Patient Health Record ---
Author Organization [facility] Address [address] [facility] [place] [address] Support Name Relationship Address Phone Keysha Scanlon Guarantor Unknown Unavailable Allergies No Known Allergies Reason For Referral No Information Medications Medication SIG (Take, Route, Frequency, Duration) Notes Start Date End Date Status t3 and t4 compound t3 310 mg t4 55 mg daily *Reorder from [employer] computer for eRx and Interaction Alerts* Active Problems Problem Type SNOMED Code ICD Code Onset Dates Problem Status W/U Status Risk Notes Problem Hypothyroidism (88329520) Hypothyroidism, unspecified (E03.9) Active confirmed Plan Of Treatment No Information Insurance Providers Payer Name Payer Address Payer Phone Subscriber Number Group Number Insured Name Patient Relationship to Insured Coverage Start Date Coverage End Date DO NOT USE [id number] Keysha Scanlon Self - patient is the insured 3 Medical (General) History Surgical History Surgery Date(Month/Year) * NO SURGERIES; 2013-03-14
--- OUTSIDE RECORDS SUMMARY | 2024-11-08 00:27 | XMS_ITS | Encounter Summary ---
Author Organization [facility] Address [address] [place] [address] Care Team Providers Care Shirt Bander Name Role Phone Polina Hardy Primary Care Provider Encounter Details Date Type Department Care Team (Latest Contact Info) Description 09/17/2000 Outpatient Historical [facility] Lb Tanner MD [address] [facility] [address] [place] [address] Unspecified high-risk (Primary Dx) Social History Tobacco Use Types Packs/Day Years Used Date Smoking Tobacco: Never Assessed Comments Unknown Sex and Gender Information Value Date Recorded Sex Assigned at Not on file Legal Sex Female 3:41 AM INSTRUCTIONAL DESIGN CONSULTANT Gender Identity Not on file Sexual Orientation Not on file documented as of this encounter Plan of Treatment Not on file documented as of this encounter Visit Diagnoses Diagnosis Unspecified high-risk - Primary documented in this encounter Care Teams Shirt Bander Relationship Specialty Start Date End Date Polina Hardy PA PCP - General Physician Junk Removal Specialist 01/11/20 documented as of this encounter
--- OUTSIDE RECORDS SUMMARY | 2024-11-08 00:27 | XMS_ITS | Clinical Summary ---
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 Gender Identity Not on file Sexual Orientation [...] of 3 - 19+ 3-dose series) 01/23 HPV/Cotest (21-29) 02/02/1992 PAP SMEAR 02/02/1992 CERVICAL CANCER SCREENING 2001 HPV/Cotest (30-65) 2001 PAP SMEAR 2001 BREAST CANCER SCREENING 2011 COLORECTAL SCREENING 02/02/2016 Colorectal Cancer Screening 02/02/2016 FIT-DNA Q 3 years 02/02/2016 FIT/FOBT Q 1 year 02/02/2016 Flex Sig/CT Colonography Q 5 years 02/02/2016 ZOSTER VACCINE (1 of 2) 2021 INFLUENZA VACCINE (#1) 2024 05/11/2018 DTAP/TDAP/TD VACCINES (2 - Td or Tdap) 05/11/2028 Insurance Care Teams Industrial Roofer Relationship Specialty Start Date End Date Polina Hardy PA PCP - General Physician School Treasurer 01/11/20
--- OUTSIDE RECORDS SUMMARY | 2024-11-08 00:27 | XMS_ITS | CONTINUITY OF CARE DOCUMENT ---
Author Name ponce serra Address Unknown Organization [facility] Address [address] [place] [address] Phone [phone] Care Team Providers Care Metal Caster Name Role Phone Fitz Bardales MD Unavailable [phone] CHARLA LOMBARDI Unavailable [phone] CHARLA LOMBARDI Unavailable [phone] PROBLEMS Condition Status Date Provider Notes Family [...] LinkLogic 3.5-5.1 sodium, serum 139 mmol/L [employer] [phone]/03 /13 calcium, serum 9.3 mg/dL [employer] 8.5-10.5 [...] Payer name Policy type / Coverage type [place] red republican [place] [facility] [id number] Other [id number] ADVANCE DIRECTIVES Name Date LIVING WILL ON [...] C heck LP(a) and APO E genotype. Brain Campbell MD Cardiology: R ecommend [facility] panel with lipid particle testing and inflammation markers. N o previous therapies. W orking on weight loss. Brian Campbell MD Date Name CT, Coronary Calcium Score HISTORY OF PROCEDURES Procedure Date Procedure Name Provider Procedure Notes S elbaus CT- Coronary CA score Brian Campbell MD completed EKG Brian Campbell MD complet ed
--- OUTSIDE RECORDS SUMMARY | 2024-11-08 00:28 | XMS_ITS | Clinical Summary ---
Author Organization [facility] Address [address] [place] [address] Care Team Providers Care Event Staff Name Role Phone Unavailable Primary Care Provider Unavailabl e Source Comments [facility],non-owned Affiliates and Associated Physician Practices is amultiple site organization consisting of ambulatory clinics and hospital sitesin [place], [place], [place] and [place]. This disclosure is being madepursuant to the Care Everywhere program and may not contain all information available regarding this patient. Last updated 18.[facility] [employer] Social History Tobacco Use Types Packs/Day Years Used Date Smoking Tobacco: Never Assessed Comments Unknown Sex and Gender Information Value Date Recorded Sex Assigned at Not on file Legal Sex Female 6:39 AM CLERK SECRETARY Gender Identity Not on file Sexual Orientation [...] VACCINE (1 of 2) 2021 COVID-19 VACCINE (1 - 2023-2 5 season) 2024 DEPRESSION SCREENING 07/26/2024 INFLUENZA VACCINE (Season Ended) 2025 HIB VACCINE Aged Out No longer eligi [...] on patient's age to complete this topic Insurance [facility]
[2024-11-08] MEDS: LACTATED RINGERS 1,000 ML 30 ML IV CONT ×2 (08:00→11:54)
[2024-11-08] MEDS: TRANEXAMIC ACID 1,000MG/ISO100 1,000 MG/100 ML BAG 200 MG IVPB (08:49)
--- NOTE | 2024-11-08 09:00 | WPDHPUPDATE1 ---
History and Physical Update Update Date/Time: 11/08/24 09:00 History and Physical has been reviewed, including an updated exam of the patient. There are NO changes in the patient's condition. Risks, benefits, and alternatives have been discussed and questions answered. Patient agrees to proceed with procedure.
--- NOTE | 2024-11-08 09:01 | P.PNAN_ITS ---
Anes - Initial Pre Proc Eval Procedure: Operation Date: 11/08/24 09:30 Proposed Procedures p Bilateral Breast Mastopexy with Galaflex - Jason Sierra MD Date/Time: 11/08/24 09:01 Surgeon: Jason Sierra MD Pre Op Diagnosis: Breast Ptosis Patient Data Age: 54 Gender: F Height: 1.63 m Weight: 69 kg Last Vital Signs Temp 36.6 C 11/08/24 07:50 Pulse 81 11/08/24 07:50 Resp 16 11/08/24 07:50 BP 114/83 11/08/24 07:50 Pulse Ox 100 11/08/24 07:50 O2 Del Method Room Air 11/08/24 07:50 Allergies Allergy/AdvReac Type Severity Reaction Status Date / Time No Known Allergies Allergy Mild Verified 11/08/24 07:48 Home Medications ?Medication ?Instructions ?Recorded ?Confirmed ?Type levothyroxine 200 mcg capsule 290 mcg PO DAILY 01/31/21 11/08/24 History cholecalciferol (vitamin D3) 25 1,000 unit PO DAILY 10/27/24 11/08/24 History mcg (1,000 unit) capsule (Vitamin D3) progesterone micronized 100 mg 100 mg PO HS 10/27/24 11/08/24 History capsule Laboratory Tests 11/08/24 07:54 Cotinine Pending Patient hx anesthesia problems: none Family hx anesthesia problems: none Results Review: All pre-operative results and documents have been reviewed as part of the pre- operative evaluation. [facility] Past Medical History Medical History Colon cancer screening Hyperlipidemia Hypothyroidism Family History Family History Sibling Family history of bipolar disorder Mother Family history of osteoarthritis Family history of heart disease in male family member before age 55 Grandparent Family history of lung cancer Father Family history of heart disease in male family member before age 55 Other Diabetes mellitus Family history of coronary artery disease Hypertension Social History Social History Smoking status: Never smoker Alcohol intake: current Drinks per week: 3 Substance use: never Substance use type: does not use Living arrangements: with family Spiritual care concerns: No Anes - Eval Final PreProcedure Day of Procedure 11/08/24 09:01 Patient weight: normal Heart: regular rate and rhythm Lungs: clear to auscultation Airway: Mallampati scale class II Neurological: alert and oriented Last oral intake: >/= 8 hours ASA classification: II Emergent: no Anesthetic plan: proceed Anesthesia type and monitoring: general LMA and standard monitoring Results Review: All pre-operative results and documents have been reviewed as part of the pre- operative evaluation. Informed Consent: The patient's anesthetic plan and its attendant risks and benefits were discus sed with the patient/family/POA. Questions were solicited and answers provided to the satisfaction of the patient/family/POA.
--- NOTE | 2024-11-08 09:14 | P.OP_ITS ---
Procedure Note - Detailed Date of Procedure 11/08/24 Pre-op Diagnosis Breast Ptosis Post-op Diagnosis Same Procedure Performed Bilateral mastopexy with Galaflex Surgeon Jason Sierra MD Anesthesia General Findings Inverted T Superior pedicle Lipoaspirate: 40 cc Description of Procedure She is here today for bilateral breast mastopexy. Previously and again today the risks, benefits, alternatives were discussed in extensive detail. I wanted her to be very realistic about the risks involved as well as expectations. We discussed aftercare and what to monitor for. Made sure answered all of her questions to her satisfaction today and consent was obtained. Marked in the preoperative holding area with their verification. The patient was taken to the operating room placed supine on the operating table. Anesthesia was provided by anesthesiology. A surgical time-out was taken. She was prepped and draped in a standard sterile fashion. Eleven blade was utilized to make a stab incision and infiltrated with low volume tumescent solution. The breast was tailor tacked into place. I tailor tacked the breast into position. Placed her in a sitting position. Verified the nipple-areolar location based on preoperative planning as well as intraoperative observations and measurements in full agreement. She was placed supine. I de-epithelialized the pedicle. I then de-epithelialized the inferior breast tissue to create an autoaugmentation flap based on intercostal associate medical director. I elevated medial and lateral tissue flaps as well for planned closure. The autoaugmentation flap was sutured to the chest wall with 2-0 PDS. Galaflex was soaking on the back table in betadine solution. Trimmed and sutured into place with 2-0 Vicryl. Suction lipectomy was completed laterally with a 4mm shahnaz cannula based on preoperative planning, intraoperative observation, and rolling pinch test which was in full agreement. I closed along the IMF with 2-0 Stratafix. Along the vertical with 2-0 PDS. I closed around the Severo with 3-0 strata fix. 3-0 Monocryl along the vertical. 3-0 Stratafix along the IMF. I finally closed everything with running subcuticular 4-0 Monocryl and tissue glue. Fluffs and surgical bra were placed. Estimated Blood Loss 30 Drains No Packing No Pathology None sent Complications No immediate complications Condition Stable Disposition PACU
--- NOTE | 2024-11-08 09:22 | SUR.PREOP ---
0920-No cotinine result-lab states machine was down for maintainence and result will be not be available for ~[address] Sierra aware and he spoke w/pt regarding any past smoking history, pt denies and Dr. Sierra states may proceed w/o result.
[2024-11-08 09:31] LABS: Urine Cotinine NEGATIVE
[2024-11-08] MEDS: ceFAZolin 2 GM/D5W 50 ML 2 GM/50 ML BAG IVPB (09:36)
[2024-11-08] MEDS: LACTATED RINGERS IRRIG 1,000 ML, LIDOCAINE 1% LOCAL INJ 50 ML, EPINEPHrine HCL INJ 1 MG... INFILTRATE (10:03)
[2024-11-08] MEDS: NACL 0.9% IRRIG POUR BOTTLE 900 ML, GENTAMICIN SULFATE INJ 160 MG, ceFAZolin 2 GM, POVI... IRRIGATION (10:04)
[2024-11-08] MEDS: SCOPOLAMINE 1 MG PATCH 1 PATCH TRANSDERM (10:10)
[2024-11-08] MEDS: fentaNYL CITRATE INJ (*CRX) 100 MCG/2 ML VIAL 25 MCG IV PUSH ×2 (12:11→12:13)
[2024-11-08] MEDS: oxyCODONE HCL (*CRX) 5 MG TAB IR PO (13:00)
== END 2024-11-08 13:57 | disposition home or self-care (01) ==
PROVIDERS: PCP Physician Assistant; Visit Provider Surgery Plastic and Reconstructive Surgery
PROC: (CPT 19316; principal; 2024-11-08 09:30)
DX: Z41.1 Encounter for cosmetic surgery (principal); N64.81 Ptosis of breast; E78.5 Hyperlipidemia, unspecified; E03.9 Hypothyroidism, unspecified; Z79.891 Long term (current) use of opiate analgesic; Z98.890 Other specified postprocedural states; Z80.1 Family history of malignant neoplasm of trachea, bronchus and lung; Z82.49 Family history of ischemic heart disease and other diseases of the circulatory system
CPT/HCPCS: 19316; 15777 ×2; 15877; 80307; A9270; J0171; J0690; J1100; J1580; J2003; J2004; J2250; J2405; J2704; J3010; J7120

== ENCOUNTER 2025-04-13 09:55 | Outpatient (CLI) | payer OTHER, SELFPAY ==
--- OUTSIDE RECORDS SUMMARY | 2025-04-13 09:57 | XMS_ITS | Encounter Summary ---
Author Organization [facility] Address [address] [place] [address] Care Team Providers Care Research Staff Member Name Role Phone Polina Hardy Primary Care Provider [phone] Encounter Details Date Type Department Care Team (Latest Contact Info) Description 07/15/2000 Outpatient Historical [facility] Lb Tanner MD [address] [facility] [address] [place] [address] Unspecified high-risk (Primary Dx) Social History Tobacco Use Types Packs/Day Years Used Date Smoking Tobacco: Never Assessed Comments Unknown Sex and Gender Information Value Date Recorded Sex Assigned at Not on file Legal Sex Female 3:41 AM 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
--- OUTSIDE RECORDS SUMMARY | 2025-04-13 09:57 | XMS_ITS | Encounter Summary ---
Author Organization [facility] Address [address] [place] [address] Care Team Providers Care American Indian Policy Specialist Name Role Phone Polina Hardy Primary Care Provider Encounter Details Date Type Department Care Team (Latest Contact Info) Description 10/19/2000 Outpatient Historical [facility] Lb Tanner MD [address] [facility] [address] [place] [address] Unspecified high-risk (Primary Dx) Social History Tobacco Use Types Packs/Day Years Used Date Smoking Tobacco: Never Assessed Comments Unknown Sex and Gender Information Value Date Recorded Sex Assigned at Not on file Legal Sex Female 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
--- OUTSIDE RECORDS SUMMARY | 2025-04-13 09:57 | XMS_ITS | Encounter Summary ---
Author Organization [facility] Address [address] [place] [address] Care Team Providers Care Software Validation Engineer Name Role Phone Polina Hardy Primary Care Provider Encounter Details Date Type Department Care Team (Latest Contact Info) Description 08/16/2000 Outpatient Historical [facility] Lb Tanner MD [address] [facility] [address] [place] [address] Unspecified high-risk (Primary Dx) Social History Tobacco Use Types Packs/Day Years Used Date Smoking Tobacco: Never Assessed Comments Unknown Sex and Gender Information Value Date Recorded Sex Assigned at Not on file Legal Sex Female 3:41 AM NATIONAL SALES DIRECTOR Gender Identity Not on file Sexual Orientation Not on file documented as of this encounter Plan of Treatment Not on file documented as of this encounter Visit Diagnoses Diagnosis Unspecified high-risk - Primary documented in this encounter Care Teams Software Validation Engineer Relationship Specialty Start Date End Date Polina Hardy PA PCP - General Physician Beef Lugger 01/11/20 documented as of this encounter
--- OUTSIDE RECORDS SUMMARY | 2025-04-13 09:57 | XMS_ITS | Encounter Summary ---
Author Organization [facility] Address [address] [place] [address] Care Team Providers Care Sack Cleaner Name Role Phone Polina Hardy Primary Care Provider [phone] Encounter Details Date Type Department Care Team (Latest Contact Info) Description 09/17/2000 Outpatient Historical [facility] Lb Tanner MD [address] [facility] [address] [place] [address] Unspecified high-risk (Primary Dx) Social History Tobacco Use Types Packs/Day Years Used Date Smoking Tobacco: Never Assessed Comments Unknown Sex and Gender Information Value Date Recorded Sex Assigned at Not on file Legal Sex Female 3:41 AM DIRECTOR CHECK Gender Identity Not on file Sexual Orientation Not on file documented as of this encounter Plan of Treatment Not on file documented as of this encounter Visit Diagnoses Diagnosis Unspecified high-risk - Primary documented in this encounter Care Teams Sack Cleaner Relationship Specialty Start Date End Date Polina Hardy PA PCP - General Physician Rail Equipment Operator 01/11/20 documented as of this encounter
--- OUTSIDE RECORDS SUMMARY | 2025-04-13 09:57 | XMS_ITS | Clinical Summary ---
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 Not on file [...] AM CDT Pulse 105 08/12/2022 8:32 AM DIESEL MECHANIC APPRENTICE Temperature 37.2 C (99 F) 12/05/2019 1:42 PM CDT Respiratory Rate - - Oxygen Saturation 98% 08/12/2022 8:32 AM DIESEL MECHANIC APPRENTICE Inhaled Oxygen Concentration - - Weight 67.6 kg (149 lb) 01/26/2024 11:05 AM CDT Height 162.6 cm (5' 4) 01/26/2024 11:05 AM CDT Body Mass Index 25.58 01/26/2024 11:05 AM CDT Plan of Treatment Health Maintenance Due Date Last Done Comments Colon Cancer Screening-Colonoscopy 1971 Depression Screening 1971 Hepatitis C Screening 1971 Hepatitis B Screening 1989 Breast Cancer Screening-Mammogram 08/12/2018 08/12/2017, 08/05/2015, 05/28/2014, Additional history exists Zoster Vaccine (1 of 2) 2021 Cervical Cancer Screening 01/25/2025 01/26/2024, 09/2023 Regular Well Visit/Exam 18-64 01/25/2025 01/26/2024 Covid-19 Vaccine (3 - season) 2025 07/31/2021, 02/16/2021 Influenza Vaccine (#1) 2025 05/11/2018 DTaP/Tdap/Td Vaccine (2 - Td or Tdap) [...] MAMMOGRAM 2D BILATERAL Routine 08/12/2017 12:00 AM DIESEL MECHANIC APPRENTICE from Last 3 Months or Most Recently Relevant to Health Maintenance Results * Pap and High Risk HPV and Genotyping (Cytology Component) (01/26/2024 12:19 PM CDT) Endocervical (Pap test) 01/26/2024 12:19 PM CDT 01/28/2024 10:49 AM CDT Narrative PATHOLOGY [facility] - 2024 9:48 AM CDT EPIC results best viewed via link to PDF [address] [address] Tele: Annabelle Schumacher MD - Patent Solicitor CYTOLOGY REPORT Note to Patients: This report [...] the details. Patient Name: KEYSHA SCANLON Address: [address] [place] [address] Gender: F : 1970 (Age: 53) Service: Location: N : [id number] [facility] #: [id number] Patient Type: [facility] Taken: 01/26/2024 Reported: 2024 Physician(s): [place] [...] LAB CYTOLOGY ORDERABLES Fin al Result PATHOLOGY [facility] Laboratory Receiving [address] [place] [address] * Screening Mammogram 2D Bilateral (08/12/2017 12:00 AM DIESEL MECHANIC APPRENTICE) Anatomical Region Laterality Modality Breast Bilateral Mammography 08/12/2017 10:2 2 PM DIESEL MECHANIC APPRENTICE Narrative 08/13/2017 9:05 PM DIESEL MECHANIC APPRENTICE - SCREENING MAMM BI BILATERAL DIGITAL SCREENING MAMMOGRAM 3D/2D WITH CAD: 08/12/2017 CLINICAL: Routine screening. Patient has no complaints. Comparison is made to exams dated: 08/05/2015, 05/28/2014, and 04/06/2013 [facility]. The tissue of both breasts is heterogeneously [...] The patient will be contacted by letter. aKtia leach/piero:08/13/2017 10:56:13 letter sent: Normal Exam Mammogram BI-RADS: 1 Negative Radiologist: KATIA RODRIGUEZ Attending: GREGORY TANNER M.D. Requesting: GREGORY TANNER M.D. Requesting Requesting ID: [id number] Attending Attending ID: [id number] Completed Time: 08/12/2017 4:22 PM Dictated Time: N/A Transcribed Time: 08/13/2017 3:04 PM Signed by: KATIA RODRIGUEZ on 08/13/2017 3:04 PM Report To 1 ID: [id number] Report To 1 Name: POLINA HARDY Report [...] to exams dated: 08/05/2015, 05/28/2014, and 04/06/2013 [facility]. The tissue of both breasts is heterogeneously [...] Requesting: GREGORY TANNER M.D. Requesting Requesting ID: [id number] Attending Attending ID: [id number] Completed Time: 08/12/2017 4:22 PM Dictated Time: N/A Transcribed Time: 08/13/2017 3:04 PM Signed by: KATIA RODRIGUEZ on 08/13/2017 3:04 PM Report To 1 ID: [id number] Report To 1 Name: POLINA HARDY Report To 1 FAX: Report To 2 ID: Report To 2 Name: , Report To 2 FAX: Report To 3 ID: Report To 3 Name: , Report To 3 FAX: NextGen Order #: Gregory Tanner MD IMG MAMMO PROCEDURES Edite d Result - Final from Last 3 Months or Most Recently Relevant to Health Maintenance Insurance [facility] [place] [id number] [facility] [place] [address] [facility] [employer] Care Teams Shoe Coverer Relationship Specialty Start Date End Date Polina Hardy PA PCP - General 01/29/17 Moody Vidal III, MD [address] [place] [address] Consulting Physician Rheumatology 11/14/19 Shruti Foote MD [address] [place] [address] Referring Physician Industrial Hygenist 11/22/19
--- OUTSIDE RECORDS SUMMARY | 2025-04-13 09:57 | XMS_ITS | Clinical Summary ---
Author Organization [facility] Address [address] [facility] [facility] [place] [address] Phone Care Team Providers Care Net Coordinator Name Role Phone Polina Hardy Primary Care Provider [phone] Allergies No known active allergies Medications pravastatin [...] on file Legal Sex Female 3:41 AM EAP SPECIALIST Gender Identity Not on file Sexual Orientation Not on file Last Filed Vital Signs Vital Sign Reading Time Taken Comments Blood Pressure - - Pulse - - Temperature - - Respiratory Rate - - Oxygen Saturation - - Inhaled Oxygen Concentration - - Weight 78.9 kg (174 lb) 03/04/2020 1:53 PM CDT Height 162.6 cm (5' 4) 03/04/2020 1:53 PM CDT Body Mass Index 29.87 03/04/2020 1:53 PM CDT Plan of Treatment Health Maintenance Due Date Last Done Comments HEPATITIS B VACCINES (1 of 3 - 19+ 3-dose series) 01/23 HPV/Cotest (21-29) 02/02/1992 CERVICAL CANCER SCREENING 2001 HPV/Cotest (30-65) 2001 PAP SMEAR 2001 BREAST CANCER SCREENING 2011 COLORECTAL SCREENING 02/02/2016 Colorectal Cancer Screening 02/02/2016 FIT-DNA Q 3 years 02/02/2016 FIT/FOBT Q 1 year 02/02/2016 Flex Sig/CT Colonography Q 5 years 02/02/2016 ZOSTER VACCINE (1 of 2) 2021 INFLUENZA VACCINE (#1) 2025 05/11/2018 DTAP/TDAP/TD VACCINES (2 - Td or Tdap) 05/11/2028 Insurance [facility] [employer] PPO [id number] Care Teams Net Coordinator Relationship Specialty Start Date End Date Polina Hardy PA PCP - General Physician Licensed Mortician 01/11/20
--- OUTSIDE RECORDS SUMMARY | 2025-04-13 09:58 | XMS_ITS | Clinical Summary ---
Author Organization [facility] Address [address] [facility] [place] [address] Care Team Providers Care Eye Dropper Assembler Name Role Phone Unavailable Primary Care Provider Unavailabl e Source Comments [facility],non-owned Affiliates and Associated Physician Practices is amultiple site organization consisting of ambulatory clinics and hospital sitesin [place], [place], [place] and [place]. This disclosure is being madepursuant to the Care Everywhere program and may not contain all information available regarding this patient. Last updated 18.[facility] [employer] Social History Tobacco Use Types Packs/Day Years Used Date Smoking Tobacco: Never Assessed Comments Unknown Sex and Gender Information Value Date Recorded Sex Assigned at Not on file Legal Sex Female 6:39 AM COFFEE MAKER SERVICER Gender Identity Not on file Sexual Orientation [...] SCREENING 1971 LIPID TESTING 1971 MAMMOGRAM 1971 HIV SCREENING 1986 HEPATITIS C SCREENING 01/27/1989 DTAP/TDAP/TD VACCINES (1 - Tdap) 1990 HEPATITIS B VACCINE (1 of 3 - 19+ 3-dose series) 1990 PNEUMOCOCCAL VACCINE 50+ (1 of 1 - PCV) 2021 ZOSTER VACCINE (1 of 2) 2021 DEPRESSION SCREENING 07/26/2024 COVID-19 VACCINE (2023-2 5 season) 2025 INFLUENZA VACCINE (#1) 2025 HIB VACCINE Aged Out No longer [...] patient's age to complete this topic [place] [address] [place] [address]
== END 2025-04-13 09:56 | disposition home or self-care (01) ==
LOC: ANHAUDIO 09:55
PROVIDERS: PCP Physician Assistant; Visit Provider Otolaryngology
DX: H65.492 Other chronic nonsuppurative otitis media, left ear (principal); H90.12 Conductive hearing loss, unilateral, left ear, with unrestricted hearing on the contralateral side; H90.42 Sensorineural hearing loss, unilateral, left ear, with unrestricted hearing on the contralateral side
CPT/HCPCS: 92557; 92567